=== PATIENT | female | born 1945 | race Hispanic/Latino ===

== ENCOUNTER 2017-02-07 07:49 | Outpatient (CLI) | payer MEDICARE ==
[2017-02-07] MEDS ORDERED: FLUSH HEPARIN IV ONE (08:35)
--- NOTE | 2017-02-10 07:41 | Nuclear Medicine Report ---
NUCLEAR MEDICINE MUGA DATED CARDIAC History: Myocardial infarction, calculated ejection fraction after MRI. Findings: Heart rate measures 64 beats per minute. The planar images demonstrate no gross wall motion abnormality. The cardiac ejection fraction ranges from 64.7 - 67.9 %.
== END 2017-02-07 07:50 | disposition home or self-care (01) ==
LOC: NM 07:49
PROVIDERS: ATTEND Internal Medicine Cardiovascular Disease
DX: I25.2 Old myocardial infarction (principal); I42.9 Cardiomyopathy, unspecified
CPT/HCPCS: 78472; A9560; J1642

== ENCOUNTER 2017-11-14 15:53 | Emergency (ER) | payer MEDICARE ==
[2017-11-14 16:48] LABS: Hematocrit 41.7 % (30.3-42.9); Hemoglobin 13.4 gm/dl (10.1-14.3); Mean Corpuscular HGB Conc 32 % (30-34); Mean Corpuscular Hemoglobin 27 pg (28-32); Mean Corpuscular Volume 83 fl (79-97); Platelet Count 543 K/mm3 (140-440); Red Blood Count 5.02 M/mm3 (3.65-5.03); Red Cell Distribution Width 14.8 % (13.2-15.2)
[2017-11-14 16:54] LABS: White Blood Count 23.9 K/mm3 (4.5-11.0)
[2017-11-14 17:12] LABS: Calcium 9.2 mg/dL (8.4-10.2); Chloride 101.5 mmol/L (98-107); Potassium 3.9 mmol/L (3.6-5.0)
[2017-11-14 17:28] LABS: Basophils % (Manual) 0 % (0.0-1.8); Blastocytes % (Manual) 0 %; Eosinophils % (Manual) 0 % (0.0-4.3)
[2017-11-14 17:29] LABS: Diff Status Complete; Giant Platelets Rare; Platelet Estimate Consistent w Auto; RBC Morphology Normal
--- NOTE | 2017-11-14 18:25 | XRay Report ---
FINAL REPORT PROCEDURE: XR CHEST ROUTINE 2V TECHNIQUE: PA and lateral chest radiographs were obtained. CPT 20353 HISTORY: Shortness of breath. COMPARISON: No prior studies are available for comparison. FINDINGS: Heart: Normal. Mediastinum/Vessels: Aortic tortuosity. Lungs/Pleural space: Normal. Mild symmetric biapical pleural thickening. Bony thorax: Small multilevel osteophytes. Other: Cholecystectomy clips. IMPRESSION: No radiographic evidence of acute cardiopulmonary disease.
[2017-11-14 18:37] LABS: INR 0.89 (0.87-1.13)
[2017-11-14 18:38] LABS: Partial Thromboplastin Time 28.5 Sec. (24.2-36.6)
[2017-11-14 18:51] LABS: Alanine Aminotransferase 22 units/L (7-56); Albumin 4.1 g/dL (3.9-5); Albumin/Globulin Ratio 1.4 %; Alkaline Phosphatase 130 units/L (35-129); Bilirubin,Direct < 0.2 mg/dL (0-0.2); Bilirubin,Indirect 0.1 mg/dL; Total Protein 7.1 g/dL (6.3-8.2)
--- NOTE | 2017-11-14 19:27 | Emergency Department Report ---
ED Shortness of Breath HPI - General Chief Complaint: Dyspnea/Respdistress Stated Complaint: PNEUMONIA Time Seen by Provider: 11/14/17 19:04 Source: patient Mode of arrival: Ambulatory Limitations: No Limitations - History of Present Illness Initial Comments: 72 yo female who comes in today due to shortness of breath. She states that she was treated for pneumonia two weeks ago, and was informed to come to the ED due to an elevated wbc count. The patient states that she has nearly completed the entire course of biaxin, which was prescribed for her pneumonia. Upon further inquiry, the patient is on steroids, and is completing the course of them on today as well. Admits to diarrhea also times the last two days, which is lessening in intensity per the patient. Shortness of breath worse with ambulation, however the patient states that it also lessened in intensity on today in the ED. Afebrile, vitals wnl. Chest radiograph negative for any pathology. MD Complaint: shortness of breath -: week(s) (1) Severity: mild Consistency: now resolved Improves With: rest Worsens With: exertion, movement Known History Of: other (pneumonia-treated for and resolved on chest radiograph today) Context: other (recently treated pneumonia ) Associated Symptoms: cough Treatments Prior to Arrival: other (antibiotics/steroids ) - Related Data Home Oxygen Therapy: No Home Medications Medication Instructions Recorded Confirmed Last Taken Lansoprazole [Prevacid] 30 mg PO DAILY 11/22/15 11/22/15 11/22/15 Lisinopril [Zestril] 20 mg PO QDAY 11/22/15 11/22/15 11/22/15 Multivitamin with Folic Acid [One 1 tab PO DAILY 11/22/15 11/22/15 11/22/15 Daily Multivitamin Tablet] Naproxen Sodium [Aleve TAB] 220 mg PO Q8H PRN 11/22/15 11/22/15 11/22/15 Pravastatin [Pravachol] 40 mg PO DAILY 11/22/15 11/22/15 11/22/15 amLODIPine [Norvasc] 5 mg PO DAILY 11/22/15 11/22/15 11/22/15 Previous Rx's Medication Instructions Recorded Last Taken Type ALBUTEROL Inhaler [ProAir HFA 2 puff IH QID PRN #1 inhalation 11/14/17 Unknown Rx Inhaler] Allergies Allergy/AdvReac Type Severity Reaction Status Date / Time No Known Allergies Allergy Verified 11/23/15 01:08 ED Review of Systems ROS: Stated complaint: PNEUMONIA Other details as noted in HPI Constitutional: denies: chills, fever Eyes: denies: eye pain, eye discharge, vision change ENT: denies: ear pain, throat pain Respiratory: see HPI, cough Cardiovascular: denies: chest pain, palpitations Endocrine: no symptoms reported Gastrointestinal: denies: abdominal pain, nausea, diarrhea Genitourinary: denies: urgency, dysuria, discharge Musculoskeletal: denies: back pain, joint swelling, arthralgia Skin: denies: rash, lesions Neurological: denies: headache, weakness, paresthesias Psychiatric: denies: anxiety, depression Hematological/Lymphatic: denies: easy bleeding, easy bruising ED Past Medical Hx - Past Medical History Previous Medical History?: Yes Hx Hypertension: Yes Hx GERD: Yes Additional medical history: high cholesterol. chronic shoulder pain - Surgical History Hx Cholecystectomy: Yes Additional Surgical History: - Social History Smoking Status: Never Smoker Substance Use Type: None - Medications Home Medications: Home Medications Medication Instructions Recorded Confirmed Last Taken Type Lansoprazole [Prevacid] 30 mg PO DAILY 11/22/15 11/22/15 11/22/15 History Lisinopril [Zestril] 20 mg PO QDAY 11/22/15 11/22/15 11/22/15 History Multivitamin with Folic Acid [One 1 tab PO DAILY 11/22/15 11/22/15 11/22/15 History Daily Multivitamin Tablet] Naproxen Sodium [Aleve TAB] 220 mg PO Q8H PRN 11/22/15 11/22/15 11/22/15 History Pravastatin [Pravachol] 40 mg PO DAILY 11/22/15 11/22/15 11/22/15 History amLODIPine [Norvasc] 5 mg PO DAILY 11/22/15 11/22/15 11/22/15 History ALBUTEROL Inhaler [ProAir HFA 2 puff IH QID PRN #1 inhalation 11/14/17 Unknown Rx Inhaler] ED Physical Exam - General Limitations: No Limitations General appearance: alert, in no apparent distress - Head Head exam: Present: atraumatic, normocephalic - Eye Eye exam: Present: normal appearance - ENT ENT exam: Present: mucous membranes moist - Neck Neck exam: Present: normal inspection - Respiratory Respiratory exam: Present: normal lung sounds bilaterally. Absent: respiratory distress - Cardiovascular Cardiovascular Exam: Present: regular rate, normal rhythm. Absent: systolic murmur, diastolic murmur, rubs, gallop - Extremities Exam Extremities exam: Present: normal inspection - Back Exam Back exam: Present: normal inspection - Neurological Exam Neurological exam: Present: alert, oriented X3 - Psychiatric Psychiatric exam: Present: normal affect, normal mood - Skin Skin exam: Present: warm, dry, intact, normal color. Absent: rash ED Course Vital Signs 11/14/17 16:07 Temperature 98 F Pulse Rate 74 Respiratory 22 Rate Blood Pressure 150/80 O2 Sat by Pulse 99 Oximetry - Reevaluation(s) Reevaluation #1: 11/14/17 19:30 Patient states that she feels much better on evaluation just now. Chest radiograph negative for any pathology. She is completing her course of antibiotics and steroids on today. Admits to diarrhea, but it is lessening in intensity. Pneumonia-resolved. Home with an albuterol inhaler. She was informed that she would continue to not feel well for a little while even after the pneumonia is resolved on chest radiograph. Elevated wbc's due to steroid effect. ED Medical Decision Making - Lab Data Result diagrams: 11/14/17 16:14 11/14/17 16:14 - EKG Data -: EKG Interpreted by Me EKG shows normal: sinus rhythm Rate: normal - EKG Data When compared to previous EKG there are: previous EKG unavailable Interpretation: normal EKG - Radiology Data Radiology results: report reviewed No acute pathology. - Medical Decision Making Community acquired pneumonia-resolved Shortness of breath-related to above Elevated wbc count-related to steroids - Differential Diagnosis s/p community acquired pneumonia, shortness of breath, elevated wbc count Critical care attestation.: If time is entered above; I have spent that time in minutes in the direct care of this critically ill patient, excluding procedure time. ED Disposition Clinical Impression: Shortness of breath, Community acquired pneumonia, Leukocytosis Disposition: - TO HOME OR SELFCARE Is pt being admited?: No Does the pt Need Aspirin: No Condition: Stable Instructions: Bacterial Pneumonia (ED), Dyspnea (ED), Leukocytosis (ED), Fatigue (ED) Additional Instructions: Please continue and complete the course of your medications. Take medicine as prescribed as needed for shortness of breath. Your wbc count was elevated due to you being on steroids. Please follow up with your provider on discharge. Return to the ED for worsening shortness of breath, fever, chills, or bloody diarrhea. Prescriptions: ALBUTEROL Inhaler [ProAir HFA Inhaler] 2 puff IH QID PRN #1 inhalation PRN Reason: Shortness Of Breath Referrals: PRIMARY CARE, [Primary Care Provider] - 3-5 Days Time of Disposition: 19:38
[2017-11-14 19:46] VITALS: BP 152/81
== END 2017-11-14 20:09 | disposition home or self-care (01) ==
LOC: ED 15:53
DX: J18.9 Pneumonia, unspecified organism (principal); R06.02 Shortness of breath; D72.829 Elevated white blood cell count, unspecified; I10 Essential (primary) hypertension; K21.9 Gastro-esophageal reflux disease without esophagitis; E78.00 Pure hypercholesterolemia, unspecified; Z90.49 Acquired absence of other specified parts of digestive tract
CPT/HCPCS: 36415; 71020; 80048; 80074; 82140; 85007; 85025; 85610; 85730; 87040; 93005; 93010

== ENCOUNTER 2019-02-23 16:45 | Emergency (ER) | payer MEDICARE ==
--- NOTE | 2019-02-23 17:01 | Emergency Department Report ---
Blank Doc - Documentation Documentation: 73 y o female presents to ed cc of headache, dizziness and left sides numbness x 1 week dizziness has gotten worse reports nausea strted recently presents with daugther Alert and oriented x [address] scan ACC evaluate
[2019-02-23 17:35] LABS: Basophils # (Auto) 0.1 K/mm3 (0.0-0.1); Basophils % (Auto) 0.8 % (0.0-1.8); Eosinophils # (Auto) 0.4 K/mm3 (0.0-0.4); Eosinophils % (Auto) 3.8 % (0.0-4.3); Hematocrit 37.5 % (30.3-42.9); Hemoglobin 12.7 gm/dl (10.1-14.3); Lymphocytes # (Auto) 4.1 K/mm3 (1.2-5.4); Lymphocytes % (Auto) 35.7 % (13.4-35.0); Mean Corpuscular HGB Conc 34 % (30-34); Mean Corpuscular Volume 84 fl (79-97); Monocytes # (Auto) 0.8 K/mm3 (0.0-0.8); Monocytes % (Auto) 6.7 % (0.0-7.3); Platelet Count 386 K/mm3 (140-440); Red Blood Count 4.46 M/mm3 (3.65-5.03); Red Cell Distribution Width 14.3 % (13.2-15.2)
[2019-02-23 17:45] LABS: INR 0.9 (0.87-1.13)
--- NOTE | 2019-02-23 17:45 | Cat Scan Report ---
PROCEDURE: CT HEAD/BRAIN WO CON TECHNIQUE: Computerized tomography of the head was performed without contrast material. HISTORY: Lightheadedness/Dizziness COMPARISONS: None . FINDINGS: Brain: There is no evidence of intracranial hemorrhage. No parenchymal hemorrhage is seen. There is a mass visualized inferior aspect right frontal lobe medially. This shows mildly increased density an d small calcifications. This measures 3.2 x 3.1 cm. This is causing mild localized mass effect. This is mildly displacing the anterior aspect of the falx to the left. There is some decreased density seen in the periventricular white matter without mass effect. This i s fairly symmetric and does not exhibit any mass effect consistent with gliosis probably on the basis of microvascular disease or white matter changes of aging. Ventricles: The sulcal pattern and fissures are minimally prominent consistent with mild atrophy.. Bone Windows: No evidence of fracture. Paranasal sinuses: Visualized portions are clear. Mastoid air cells: Clear. IMPRESSION: There is evidence of minimal atrophy and gliosis. Soft tissue mass visualized inferior medial aspect right frontal lobe as described with mild localize d mass effect. Partially calcified meningioma is suspected. Large aneurysm in the region of the circl e of [place] is felt to be less likely. MRI of the brain is recommended for further evaluation. This document is electronically signed by Rosendo Olivares MD., February 23 2019 05:43:22 PM ET
[2019-02-23 17:46] LABS: Partial Thromboplastin Time 27.6 Sec. (24.2-36.6)
[2019-02-23 17:54] LABS: Albumin 4.1 g/dL (3.9-5); Calcium 9.3 mg/dL (8.4-10.2)
--- NOTE | 2019-02-23 18:12 | Emergency Department Report ---
HPI - General Chief Complaint: Dizziness Time Seen by Provider: 02/23/19 16:56 - HPI HPI: 73-year-old female presents to the emergency department with the complaints of a headache to the frontal region, dizziness/disequilibrium as if she is going to fall over, numbness to the left side of the face and left sided extremities. This has been going on intermittently for the past 2 weeks but worsened over the past couple of days and today the patient has also started to develop some nausea without vomiting. She has a past medical history of GERD, hypertension, high cholesterol. She has not taken anything for her symptoms prior to arrival. Her primary care physician is Dr. Yissel Magana. ED Past Medical Hx - Past Medical History Hx Hypertension: Yes Hx GERD: Yes Additional medical history: high cholesterol. chronic shoulder pain - Surgical History Hx Cholecystectomy: Yes Additional Surgical History: - Social History Smoking Status: Never Smoker Substance Use Type: None - Medications Home Medications: Home Medications Medication Instructions Recorded Confirmed Last Taken Type Lansoprazole [Prevacid] 30 mg PO DAILY 11/22/15 11/22/15 11/22/15 History Lisinopril [Zestril] 20 mg PO QDAY 11/22/15 11/22/15 11/22/15 History Multivitamin with Folic Acid [One 1 tab PO DAILY 11/22/15 11/22/15 11/22/15 History Daily Multivitamin Tablet] Naproxen Sodium [Aleve TAB] 220 mg PO Q8H PRN 11/22/15 11/22/15 11/22/15 History Pravastatin [Pravachol] 40 mg PO DAILY 11/22/15 11/22/15 11/22/15 History amLODIPine [Norvasc] 5 mg PO DAILY 11/22/15 11/22/15 11/22/15 History ALBUTEROL Inhaler (OR & NICU) 2 puff IH QID PRN #1 inhalation 11/14/17 Unknown Rx [ProAir HFA Inhaler] ED Review of Systems ROS: Stated complaint: (L) SIDE FACE NUMBNESS/HEADACHE Other details as noted in HPI Comment: All other systems reviewed and negative Constitutional: denies: chills, fever Eyes: denies: eye pain, vision change ENT: denies: ear pain, throat pain Respiratory: denies: cough, shortness of breath Cardiovascular: denies: chest pain, palpitations Gastrointestinal: denies: abdominal pain, vomiting Genitourinary: denies: dysuria, discharge Musculoskeletal: denies: back pain, arthralgia Skin: denies: rash, lesions Neurological: headache, numbness, other (dizziness) Physical Exam - Physical Exam Vital Signs: Vital Signs 02/23/19 16:57 Temperature 98.4 F Pulse Rate 65 Respiratory 15 Rate Blood Pressure 143/81 [Right] O2 Sat by Pulse 100 Oximetry Physical Exam: GENERAL: The patient is well-developed well-nourished. HEENT: Normocephalic. Atraumatic. Patient has moist mucous membranes. EYES: Extraocular motions are intact. Pupils are equal and reactive to light bilaterally. NECK: Supple. Trachea is midline. CHEST/LUNGS: Clear to auscultation. There is no respiratory distress noted. HEART/CARDIOVASCULAR: Regular. There is no tachycardia. There is no obvious murmur. ABDOMEN: Abdomen is soft, nontender. Patient has normal bowel sounds. There is no abdominal distention. SKIN: Skin is warm and dry. NEURO: The patient is awake, alert, and oriented. The patient is cooperative. No motor deficits. The patient has normal speech. Cranial nerves II through XII grossly intact. Patient has subjective decreased sensation and/or numbness to the left side of face and the left lower extremity. MUSCULOSKELETAL: There is no tenderness or deformity. There is no limitation range of motion. There is no evidence of acute injury. ED Course Vital Signs 02/23/19 16:57 Temperature 98.4 F Pulse Rate 65 Respiratory 15 Rate Blood Pressure 143/81 [Right] O2 Sat by Pulse 100 Oximetry - Consultations Consultation #1: 02/23/19 18:49 I spoke with the neurosurgeon at [facility], Dr Neely, who listened to the case presentation and has accepted the patient for transfer and admission to [facility]. 02/23/19 19:07 ED Medical Decision Making - Lab Data Result diagrams: 02/23/19 17:18 02/23/19 17:18 - Radiology Data Radiology results: report reviewed PROCEDURE: CT HEAD/BRAIN WO CON TECHNIQUE: Computerized tomography of the head was performed without contrast material. HISTORY: Lightheadedness/Dizziness COMPARISONS: None . FINDINGS: Brain: There is no evidence of intracranial hemorrhage. No parenchymal hem orrhage is seen. There is a mass visualized inferior aspect right frontal lobe medially. This shows mildly increased density and small calcifications. This measures 3.2 x 3.1 cm. This is causing mild localized mass effect. This is mildly displacing the anterior aspect of the falx to the left. There is some decreased density seen in the periventricular white matter without mass effect. This is fairly symmetric and does not exhibit any mass effect consistent with gliosis probably on the basis of microvascular disease or white matter changes of aging. Ventricles: The sulcal pattern and fissures are minimally prominent consistent with mild atrophy.. Bone Windows: No evidence of fracture. Paranasal sinuses: Visualized portions are clear. Mastoid air cells: Clear. IMPRESSION: There is evidence of minimal atrophy and gliosis. Soft tissue mass visualized inferior medial aspect right frontal lobe as described with mild localized mass effect. Partially calcified meningioma is suspected. Large aneurysm in the region of the [place] of [place] is felt to be less likely. MRI of the brain is recommended for further evaluation. This document is electronically signed by Rosendo Spangler MD., February 23 2019 05:43:22 PM ET Transcribed By: MISA Dictated By: ROSENDO SPANGLER MD Electronically Authenticated By: ROSENDO SPANGLER MD Signed Date/Time: 02/23/19 1405 - Medical Decision Making This patient presents with the complaint of some recent frontal headache, dizziness/lightheadedness and some numbness to the left side of the face. On ex amination and also appears to be some numbness to the left leg. On the NIH stroke scale the patient is a 1. A CT scan of the head was done that shows a soft tissue mass to the medial right frontal portion of the brain with some associated mass effect on the falx towards the left. This very well could be the source of the patient's symptoms. Since the patient does have this new brain mass with some strokelike symptoms and some edema causing mass effect, the patient will need evaluation by neurosurgery, which we do not have at our facility. The patient was accepted for transfer and admission to [facility] by Dr. Neely. All the labs and imaging results, as well as the plan for transfer, were discussed with the patient and her family and they understand and agree to the plan. - Differential Diagnosis malignancy, tension headache, migraine, dysrhythmia Critical Care Time: Yes Critical care time in (mins) excluding proc time.: 35 Critical care attestation.: If time is entered above; I have spent that time in minutes in the direct care of this critically ill patient, excluding procedure time. Critical care time was spent on this patient during her initial evaluation, multiple evaluations, ordering and interpretation of labs and imaging, discussion with the accepting neurosurgeon, and multiple discussions with the patient and her family. Critical Care Time: 35 minutes ED Disposition Clinical Impression: Brain mass, Dizziness, Stroke-like symptom Headache Qualifiers: Headache type: unspecified Headache chronicity pattern: episodic headache Intractability: not intractable Qualified Code(s): R51 - Headache Disposition: DC/TX-70 ANOTHER TYPE HLTHCARE Is pt being admited?: No Condition: Fair Referrals: SAMI LAZOOLYMPIA MD SELENE [Primary Care Provider] - 3-5 Days Time of Disposition: 20:35 - Assessment Assessment Interval: Baseline - Level of Consciousness 1a. Level of Consciousness: alert/keenly responsive - LOC Questions 1b. LOC Questions: answers both correctly - LOC Command 1c. LOC Commands: performs tasks correctly - Best Gaze 2. Best Gaze: normal - Visual 3. Visual: no visual loss - Facial Palsy 4. Facial Palsy: normal symmetrical movement - Motor Arm 5a. Motor Arm Left: no drift 5b. Motor Arm Right: no drift - Motor Leg 6a. Motor Leg Left: no drift 6b. Motor Leg Right: no drift - Limb Ataxia 7. Limb Ataxia: absent - Sensory 8. Sensory: mild/moderate sensory loss - Best Language 9. Best Language: no aphasia - Dysarthria 10. Dysarthria: normal - Extinction and Inattention 11. Extinction/Inattention: no abnormality - Scoring Total Score: 1 Stroke Severity: Minor Stroke
[2019-02-23 18:43] VITALS: BP 138/66
== END 2019-02-23 19:24 | disposition other institution (70) ==
LOC: ED 16:45
DX: R22.0 Localized swelling, mass and lump, head (principal); R51 Headache; R42 Dizziness and giddiness; I10 Essential (primary) hypertension; K21.9 Gastro-esophageal reflux disease without esophagitis; E78.00 Pure hypercholesterolemia, unspecified
CPT/HCPCS: 36415; 70450; 80053; 82962; 85025; 85610; 85730; 99291

== ENCOUNTER 2019-05-07 09:56 | Emergency (ER) | payer MEDICARE ==
[2019-05-07] MEDS ORDERED: DIPRIVAN 10 MG/ML 1,000 MG/100 ML BOTTLE IV ONE (10:08)
[2019-05-07] MEDS ORDERED: DIPRIVAN 10 MG/ML IV ONE (10:09)
[2019-05-07] MEDS ORDERED: KEPPRA 1,000 MG/NS 0.75% 100ML 1,000 MG/100 ML BAG IV ONE (10:10)
[2019-05-07] MEDS ORDERED: QUELICIN IV ONE (10:11)
[2019-05-07] MEDS ORDERED: DECADRON IV ONE (10:17)
[2019-05-07] MEDS ORDERED: OSMITROL 20% IV ONE ×2 (10:17→11:00)
[2019-05-07] MEDS ORDERED: DECADRON ONE (10:20)
[2019-05-07 10:25] LABS: Hematocrit 33.1 % (30.3-42.9); Mean Corpuscular HGB Conc 33 % (30-34); Mean Corpuscular Volume 86 fl (79-97); Platelet Count 527 K/mm3 (140-440); Red Blood Count 3.85 M/mm3 (3.65-5.03)
[2019-05-07] MEDS ORDERED: VASELINE LIP THERAPY TP PRN (10:30)
[2019-05-07] MEDS ORDERED: ARTIFICIAL TEARS OPHTH OINT OU PRN (10:30)
[2019-05-07] MEDS ORDERED: NORMODYNE IV ONE ×2 (10:49)
--- NOTE | 2019-05-07 10:52 | Emergency Department Report ---
ED General Adult HPI - General Chief complaint: Altered Mental Status Stated complaint: UNRESPONSIVE Time Seen by Provider: 05/07/19 10:27 Source: family, EMS Mode of arrival: Stretcher Limitations: Altered Mental Status - History of Present Illness Initial comments: 73-year-old female is status post a craniotomy for a hemangioma on Friday at [facility] and make him. She returned to this area yesterday care for by family. Family removed a fentanyl patch last night because they thought she was becoming sedated from it. This morning they found the patient to essentially be stuporous. EMS was summoned. They gave the patient Narcan without appreciable awakening. She presented to this facility deeply comatose and not posturing. It was decided that she should undergo RSI for elective intubation. The family was counseled. They were in agreement. This was done prior to CT scanning. She was given prophylactic Keppra as well. CT scan was positive for large intracranial hemorrhage. Patient was given Decadron and mannitol. I am cur rently in the process of transfer the patient presumably to her neurosurgical team in [place]. -: hour(s) - Related Data Home Medications Medication Instructions Recorded Confirmed Last Taken Lansoprazole [Prevacid] 30 mg PO DAILY 11/22/15 11/22/15 11/22/15 Lisinopril [Zestril] 20 mg PO QDAY 11/22/15 11/22/15 11/22/15 Multivitamin with Folic Acid [One 1 tab PO DAILY 11/22/15 11/22/15 11/22/15 Daily Multivitamin Tablet] Naproxen Sodium [Aleve TAB] 220 mg PO Q8H PRN 11/22/15 11/22/15 11/22/15 Pravastatin [Pravachol] 40 mg PO DAILY 11/22/15 11/22/15 11/22/15 amLODIPine [Norvasc] 5 mg PO DAILY 11/22/15 11/22/15 11/22/15 Previous Rx's Medication Instructions Recorded Last Taken Type ALBUTEROL Inhaler (OR & NICU) 2 puff IH QID PRN #1 inhalation 11/14/17 Unknown Rx [ProAir HFA Inhaler] Allergies Allergy/AdvReac Type Severity Reaction Status Date / Time adhesive tape Allergy Unknown Verified 05/07/19 10:00 ED Review of Systems ROS: Stated complaint: UNRESPONSIVE Other details as noted in HPI Comment: Unobtainable due to pts medical conditions ED Past Medical Hx - Past Medical History Previous Medical History?: Yes Hx Hypertension: Yes Hx GERD: Yes Additional medical history: high cholesterol. chronic shoulder pain - Surgical History Past Surgical History?: Yes Hx Cholecystectomy: Yes Additional Surgical History: . brain surgery for a 3.5 cm meningioma - Social History Smoking Status: Unknown if ever smoked Substance Use Type: None - Medications Home Medications: Home Medications Medication Instructions Recorded Confirmed Last Taken Type Lansoprazole [Prevacid] 30 mg PO DAILY 11/22/15 11/22/15 11/22/15 History Lisinopril [Zestril] 20 mg PO QDAY 11/22/15 11/22/15 11/22/15 History Multivitamin with Folic Acid [One 1 tab PO DAILY 11/22/15 11/22/15 11/22/15 History Daily Multivitamin Tablet] Naproxen Sodium [Aleve TAB] 220 mg PO Q8H PRN 11/22/15 11/22/15 11/22/15 History Pravastatin [Pravachol] 40 mg PO DAILY 11/22/15 11/22/15 11/22/15 History amLODIPine [Norvasc] 5 mg PO DAILY 11/22/15 11/22/15 11/22/15 History ALBUTEROL Inhaler (OR & NICU) 2 puff IH QID PRN #1 inhalation 11/14/17 Unknown Rx [ProAir HFA Inhaler] ED Physical Exam - General Limitations: Altered Mental Status General appearance: obtunded - Head Head exam: Present: other (craniotomy and bandage) - Eye Eye exam: Present: other (pupils small to mid position and mildly reactive) - ENT ENT exam: Present: normal exam - Neck Neck exam: Present: normal inspection. Absent: meningismus - Respiratory Respiratory exam: Present: decreased breath sounds - Cardiovascular Cardiovascular Exam: Present: regular rate, normal rhythm. Absent: systolic murmur, diastolic murmur, rubs, gallop - GI/Abdominal GI/Abdominal exam: Present: soft. Absent: distended - Extremities Exam Extremities exam: Present: normal inspection - Back Exam Back exam: Present: other (did not visualize) - Neurological Exam Neurological exam: Present: other (GCS is to be 4 with some posturing) - Psychiatric Psychiatric exam: Present: other (not applicable) - Skin Skin exam: Present: warm ED Course Vital Signs 05/07/19 05/07/19 05/07/19 09:58 10:00 10:15 Pulse Rate 64 65 80 Respiratory 18 16 27 H Rate Blood Pressure 200/84 216/95 O2 Sat by Pulse 91 100 Oximetry 05/07/19 05/07/19 05/07/19 10:35 10:45 10:48 Pulse Rate 81 84 80 Respiratory 16 22 Rate Blood Pressure 191/94 201/81 199/76 O2 Sat by Pulse 100 100 Oximetry 05/07/19 05/07/19 05/07/19 10:50 10:55 11:00 Pulse Rate 74 67 69 Respiratory 20 14 19 Rate Blood Pressure 145/79 145/79 103/76 O2 Sat by Pulse 100 100 100 Oximetry 05/07/19 11:05 Pulse Rate 68 Respiratory 14 Rate Blood Pressure 172/78 O2 Sat by Pulse 100 Oximetry - Reevaluation(s) Reevaluation #1: Rapid sequence intubation performed with intubation 7.5 Samoan endotracheal tube at 22 cm at the teeth single attempt with no desaturation. Empirically, I ordered Decadron and mannitol. Confirmation of indications on CT scan 7.5 cm intracranial hemorrhage edema and midline shift of 1.4 cm. Hematoma in the right frontal region contiguous to the craniotomy. I spoke with Dr. Flanagan. The patient should be sent to the emergency department as soon as possible. He stated Dr. Figueroa will be the receiving physician since he is out of town. Air ambulance is an route. 05/07/19 11:03 - Intubation Time Out Performed: No Sedative: other (propofol) Paralytic: Succinylcholine Laryngoscope: Riccardo Size: 4 ET Tube Size: 7.5 Tube Secured Depth (cm): 22 Tube Secured Location: teeth Tube Placement Confirmation: visualized tube passing t Patient Tolerated Procedure: well Intubation Complications: none Additional Comments: B retracted 2 cm based on x-ray position. ED Medical Decision Making - Lab Data Result diagrams: 05/07/19 10:16 05/07/19 10:16 Laboratory Results - last 24 hr 05/07/19 05/07/19 05/07/19 10:07 10:16 10:16 WBC 25.5 H RBC 3.85 Hgb 11.0 Hct 33.1 MCV 86 MCH 29 MCHC 33 RDW 15.0 Plt Count 527 H Lymph # Manager Financial Reporting PT INR APTT Chloride 60.0 L POC Glucose 126 H Magnesium Total Bilirubin AST ALT Alkaline Phosphatase Total Protein Albumin Albumin/Globulin Ratio 05/07/19 05/07/19 10:16 10:31 WBC RBC Hgb Hct MCV MCH MCHC RDW Plt Count Lymph # PT 14.0 INR 1.02 APTT 25.7 Chloride POC Glucose Magnesium 1.60 L Total Bilirubin 0.40 AST 20 ALT 21 Alkaline Phosphatase 95 Total Protein 7.4 Albumin 3.6 L Albumin/Globulin Ratio 0.9 - Radiology Data Endotracheal tube below it will be retracted about 2 cm Critical Care Time: Yes Critical care time in (mins) excluding proc time.: 75 Critical care attestation.: If time is entered above; I have spent that time in minutes in the direct care of this critically ill patient, excluding procedure time. ED Disposition Clinical Impression: Intracranial hemorrhage, Cerebral edema, Status post craniotomy Coma Qualifiers: Coma depth: Ranulfo coma 3-8 Coma timing: unspecified coma timing Qualified Code(s): R40.2430 - Ranulfo coma scale score 3-8, unspecified time Disposition: DC/TX-70 ANOTHER TYPE HLTHCARE Is pt being admited?: No Does the pt Need Aspirin: No Condition: Stable Referrals: PRIMARY CARE, [Referring] - 3-5 Days
--- NOTE | 2019-05-07 10:58 | Cat Scan Report ---
CT HEAD WITHOUT CONTRAST INDICATION: Altered mental status. COMPARISON: 02/23/[address] FINDINGS: Noncontrast head CT demonstrates interval postsurgical changes from right frontal/anterior cranial fossa meningioma resection. Large, approximately 7.4 x 6.8 cm right frontal lobe heterogeneous, acute hyperdense hemorrhage and associated edema now noted with new right to left midline shift of approximately 1.4 cm anteriorly as on axial series 4, images 20-50. Mild pneumocephalus anteriorly is also new as also at the surgical bed inferiorly on axial image 23. Associated effacement/displacement of the frontal horns also seen. Preserved remainder mccarty-white differentiation. Normal posterior fossa with preserved basilar cisterns. Symmetric eye globes. Right frontal craniotomy changes noted, including right frontotemporal scalp swelling and multiple skin jason. Severe, near complete opacification of the right frontal sinus is new. Mild bilateral ethmoid and maxillary sinus mucosal thickening also seen. Grossly clear left frontal sinus and bilateral mastoid air cells. Patient now intubated. Small radiopaque dental material. CONCLUSION: 1. Large right frontal lobe hemorrhage/edema and new left to right midline shift following meningioma resection, as detailed above. Please correlate. 2. Various other findings, including sinus disease and interval intubation. I phoned the above results to Dr. Peña in the ER, 10:50 AM, 05/07/2019. Thank you for the opportunity to participate in this patient's care.
[2019-05-07 10:59] LABS: INR 1.02 (0.87-1.13); Partial Thromboplastin Time 25.7 Sec. (24.2-36.6)
[2019-05-07 11:00] LABS: Alanine Aminotransferase 21 units/L (7-56); Albumin 3.6 g/dL (3.9-5)
[2019-05-07] MEDS ORDERED: DIPRIVAN 10 MG/ML 1,000 MG/100 ML BOTTLE IV SCH (11:00)
--- NOTE | 2019-05-07 11:10 | XRay Report ---
PORTABLE CHEST INDICATION: Post intubation. COMPARISON: 11/14/2017 FINDINGS: Portable, frontal chest radiograph now demonstrates poorer inspiration with mild exaggerated cardiomediastinal silhouette. Slight left perihilar atelectasis/prominent densities. No pleural effusions or CHF. New endotracheal tube tip at or just above the blas and may be retracted by approximately 3-3.5 cm. New esophagogastric tube extends into the stomach and beyond the inferior radiographic margin. Stable cholecystectomy clips. EKG leads. Intact bones. CONCLUSION: Various findings, as above. Please correlate. I phoned the above results to Dr. Peña in the ER, 11 AM, 05/07/2019. Thank you for the opportunity to participate in this patient's care.
[2019-05-07 11:15] LABS: Calcium 8.9 mg/dL (8.4-10.2)
[2019-05-07 11:19] LABS: Bilirubin,Direct < 0.2 mg/dL (0-0.2)
[2019-05-07 11:24] LABS: Bilirubin,Urine NEG (Negative); Blood,Urine SM (Negative); Color,Urine Straw (Yellow); Urobilinogen,Urine < 2.0 mg/dL (<2.0)
[2019-05-07 11:27] VITALS: BP 184/64
[2019-05-07 12:06] LABS: Basophils % (Manual) 0 % (0.0-1.8); Eosinophils % (Manual) 0 % (0.0-4.3); Myelocytes # (Manual) 0.3 K/mm3; Total Cells Counted 100
[2019-05-07 12:07] LABS: Platelet Estimate Consistent w Auto; RBC Morphology Normal
== END 2019-05-07 11:34 | disposition other institution (70) ==
LOC: ED 09:56
DX: I62.9 Nontraumatic intracranial hemorrhage, unspecified (principal); G93.6 Cerebral edema; R40.20 Unspecified coma; I10 Essential (primary) hypertension; K21.9 Gastro-esophageal reflux disease without esophagitis; E78.00 Pure hypercholesterolemia, unspecified; Z90.49 Acquired absence of other specified parts of digestive tract; Z79.899 Other long term (current) drug therapy; Z91.048 Other nonmedicinal substance allergy status
CPT/HCPCS: 31500; 36415; 70450; 71045; 80048; 80076; 81001; 82962; 83735; 85007; 85025; 85610; 85730; 93005; 93010; 96365; 96366; 96375; 99291; 99292; J1100; J1953; J2150; J2704

== ENCOUNTER 2019-06-09 10:43 | Inpatient (IN) | payer MEDICARE ==
[2019-06-09] MEDS ORDERED: MILK OF MAGNESIA PO PRN (14:47)
[2019-06-09] MEDS ORDERED: DULCOLAX PR PRN (14:47)
--- NOTE | 2019-06-09 15:32 | History and Physical Report ---
History of Present Illness Date: 06/09/19 Date of admission: 06/09/2019 Chief Complaint: ICH post meningioma resection History of present illness: 73 yo female who underwent excision of meningioma and was discharged home in good condition with the later evolution of weakness and decline. She was evaluated and found to have an ICH and taken for emergent craniotomy. Flap remains out, helmet should be on when OOB. She underwent therapy at OSH and once she was medically stable she was transferred for further rehab. Apparently the patient did have some issues with falling and required restraints of some sort at the outside hospital. We were not made aware of this prior to accepting. She also had a fall the day before transfer. CT scan of the head showed no new injury. We took the extra precaution of moving her to a room closest to the nurse's station and have placed a bed alarm on. Have discussed with nursing that she needs to be monitored closely. I have also discussed with the patient that she needs to avoid getting out of the bed without assistance. Initially upon evaluation by nursing she was already attempting to slide out of the bed. Discussed with her and nursing that if we need to we can utilize a Mini vest but would prefer to avoid that if at all possible. We will continue to monitor her progress and redirect her as much as possible but if safety warrants we will utilize a [place] vest. Duncan dose on discharge paperwork was also out of the ordinary. Contacted the referring hospital and was masha enough to be able to reach the neurosurgeon who stated there is an error in the transfer paperwork and the dose was corrected. After the patient was medically stabilized she was transferred for further rehabilitation. All available medical records have been reviewed. Plan of care was discussed with patient and family. Past History Past Medical History: anemia, cancer, GERD, hypertension, hyperlipidemia, seizures, other (CKD, dizziness) Past Surgical History: cholecystectomy, , Other (meningioma resection, craniotomy, acromial spur) Social history: lives with family. denies: smoking, alcohol abuse, prescription drug abuse Family history: CAD, diabetes, hypertension Medications and Allergies Allergies Allergy/AdvReac Type Severity Reaction Status Date / Time adhesive tape Allergy Unknown Verified 05/07/19 10:00 Home Medications Medication Instructions Recorded Confirmed Last Taken Type Lansoprazole [Prevacid] 30 mg PO DAILY 11/22/15 11/22/15 11/22/15 History Lisinopril [Zestril] 20 mg PO QDAY 11/22/15 11/22/15 11/22/15 History Multivitamin with Folic Acid [One 1 tab PO DAILY 11/22/15 11/22/15 11/22/15 History Daily Multivitamin Tablet] Naproxen Sodium [Aleve TAB] 220 mg PO Q8H PRN 11/22/15 11/22/15 11/22/15 History Pravastatin [Pravachol] 40 mg PO DAILY 11/22/15 11/22/15 11/22/15 History amLODIPine [Norvasc] 5 mg PO DAILY 11/22/15 11/22/15 11/22/15 History ALBUTEROL Inhaler (OR & NICU) 2 puff IH QID PRN #1 inhalation 11/14/17 Unknown Rx [ProAir HFA Inhaler] Active Meds: Active Medications Acetaminophen (Tylenol) 650 mg PO Q4H PRN PRN Reason: Pain MILD(1-3)/Fever >100.5/MURRY Bisacodyl (Dulcolax) 10 mg AL QDAY PRN PRN Reason: Constipation unrelieved by MOM Chlorhexidine Gluconate (Peridex) 15 ml MM BID ALEX Heparin Sodium (Porcine) (Heparin) 5,000 unit SUB-Q Q12HR ALEX Levetiracetam (Keppra) 1,000 mg PO BID ALEX Magnesium Hydroxide (Milk Of Magnesia) 30 ml PO Q4H PRN PRN Reason: Constipation Metoprolol Tartrate (Lopressor) 12.5 mg PO BID ALEX Pantoprazole Sodium (Protonix) 40 mg PO QDAY ALEX Pravastatin Sodium (Pravachol) 40 mg PO QHS ALEX Quetiapine Fumarate (Seroquel) 12.5 mg PO HS ALEX Review of Systems All systems: negative (ROS negative for 12 systems except as noted below with pertinent positives and negatives.) Constitutional: fatigue Ears, nose, mouth and throat: no decreased hearing, no headache Cardiovascular: no chest pain, no palpitations, no rapid/irregular heart beat, no edema Respiratory: no cough, no shortness of breath Gastrointestinal: no abdominal pain, no nausea, no vomiting, no diarrhea, no constipation Musculoskeletal: no neck pain, no arm numbness/tingling, no leg numbness/tingling Integumentary: no rash, no pruritis, no redness, no sores Neurological: head injury (flap out), confusion, gait dysfunction Psychiatric: confusion Endocrine: no high blood sugars, no low blood sugars Exam - Exam Narrative exam: MUSCULOSKELETAL SPECIALTY EXAM CONSTITUTIONAL: Well developed, well nourished, appropriately groomed LYMPHATIC: No appreciable abnormalities palpable in neck HEENT: Right frontal crani flap out, scalp sunken, suture line healed. Visual painting full to confrontation. EOMI. Oropharynx clear. Hearing intact to soft voice RESPIRATORY: Clear to auscultation bilaterally, no increased work of breathing CARDIOVASCULAR: Regular Rate/ Rhythm, no swelling, edema or tenderness in BUE or BLE. Pulses palpable in all extremities. All extremities warm. GI: + bowel sounds, soft, NTTP, nondistended. INTEGUMENTARY: Except for scalp as noted above, Normal, no lesion, rash, masses or bruising noted in extremities. MUSCULOSKELETAL: BUE and BLE normal without defect, crepitus, subluxation, effusion, arthritic ch anges or TTP. BUE 4/5, good ROM, with normal tone. BLE 4/5 good ROM, with normal tone NEURO: CN 2-12 grossly intact. Sensation intact in all extremities. Reflexes 2+ bilaterally at biceps, brachioradialis and patella. No clonus at ankles. Coordination intact in BUE. No tremor noted in 4 extremities. POSTURE and GAIT: Sitting posture good. Balance appears reasonable. Gait deferred until seen with therapy. PSYCH: Alert, orientated x3, affect appears normal. Insight appears impaired. Intermittent confusion and impulsive. Assessment and Plan Assessment and plan: Patient was assessed and evaluated for Acute Inpatient Rehab Unit. Due to the patients above-mentioned medical complexity, along with decreased functional mobility and self care, this patient continues to require and be appropriate for a comprehensive, multidisciplinary [id number] rehabilitation program. These needs cannot be met in an outpatient or other less intensive setting. The patient would continue to benefit from skilled therapy intervention for at least 3 hours per day, five days a week, with techniques specific to the needs of the patient to improve function, activities of daily living, and reintegration into the community. The patient continues to require: -- OT to improve ROM, self-care, and learn use of adaptive equipment -- PT to improve strength and balance, functional transfers, and ambulation with energy conservation techniques to improve functional mobility -- ASSISTANT GOLF PROFESSIONAL to address cognitive deficits and swallowing ability -- 24 hour RN to ensure and prevent skin breakdown, promote progressive independence while ensuring safety, ensure education regarding medications, and incorporation of the rehabilitation at the bedside -- 24 hour Spike Machine Heater to coordinate this interdisciplinary program, and to manage/prevent complications as a result of the patients medical comorbidities. -Plan of care by day 4 -Weekly team conferences With such a program, there is a reasonable certainty that the goals individualized for this patient can be achieved within the specified length of stay. Intracranial hemorrhage status post craniotomy: Fall precautions, helmet on when out of bed, bed alarm, patient has been moved to room closest to the nurse's station. We'll continue to assess patient as she is a high risk for future falls. May need to utilize other restraints until she is able to control her impulses. Monitor scalp for any signs of intracranial swelling (scalp is sunken currently) Hypertension: Continue medication adjustments as needed for normotension Hyperlipidemia: continue statin GERD: Continue Protonix, monitor Constipation: continue bowel meds and monitor for normal bowel regimen Seizure: Continue seizure precaution, monitor frequently for changes in neuro status, continue Keppra Z73.6 ADL dysfunction: OT will work on improving ability to perform ADLs (including assistive devices) to increase independence and decrease caregiver burden and improve functional transfers and mobility training. R26.2 Difficulty walking: PT will work on gait training and proper use of assistive devices and advance as appropriate to use of stairs and outside ambulation on uneven surfaces. R26.81 Unsteadiness on feet: PT will work on improving static and dynamic sitting and standing balance as well as proper use of assistive devices to d ecrease risk of falls. R26.89 Abnormality of gait: PT will work to improve safety and efficiency of gait through neuromotor training and gait training along with instruction on proper use of assistive devices. M62.81 Muscle weakness: PT & OT will work on strengthening exercises to improve functional strength including mixture of closed and open kinetic chain exercises. R53.81 Debility: PT & OT will work on improving overall functional status to improve participation with ADLs, mobility and social involvement. R53.83 Fatigue: PT & OT will work on improving endurance through aerobic exercises and therapeutic activity while monitoring patients tolerance for activity and vital signs as needed. DVT ppx: Heparin twice a day Pain: Continue physical modalities in therapy and pain medications as needed to achieve functional pain control. Sleep: Monitor and address as needed. Bowel: Monitor and address as needed. Appetite: Monitor and address as needed. Discharge planning: Pending therapy progress and care plan meeting. Will continue discussion with therapy team, SW, patient and family. Restrictions/ Precautions: Falls, cranial flap, seizure WB status: FWB Functional Hx: ADLs: Independent Cognition: Independent Mobility: No AD Barriers to Discharge: Decreased mobility and ability to perform self care, balance deficits, weakness Estimated Length of Stay: 1421 days Discharge Destination: Home with family POST ADMISSION PHYSICIAN EVALUATION I have examined the patient and find that functional status, medical condition and appropriateness for IRF admission are essentially unchanged from those described in the preadmission screening. Will monitor for worsening neuro status, seizure activity, falls, impulse control, DVT/PE, bowel and bladder complications and complications due to hypertension, GERD and electrolyte abnormalities. Will attempt to avoid occurrence of these issues or treat them if they present themselves.
[2019-06-09] MEDS: KEPPRA PO SCH (22:02)
[2019-06-09] MEDS: PRAVACHOL PO SCH (22:03)
[2019-06-09] MEDS: HEPARIN SUB-Q SCH (22:04)
[2019-06-09] MEDS: PERIDEX MM SCH (22:04)
[2019-06-09] MEDS: LOPRESSOR PO SCH (22:06)
[2019-06-10 04:31] LABS: Basophils # (Auto) 0.1 K/mm3 (0.0-0.1); Basophils % (Auto) 0.7 % (0.0-1.8); Eosinophils # (Auto) 0.2 K/mm3 (0.0-0.4); Eosinophils % (Auto) 3.3 % (0.0-4.3); Hematocrit 33.9 % (30.3-42.9); Hemoglobin 11.4 gm/dl (10.1-14.3); Lymphocytes # (Auto) 1.9 K/mm3 (1.2-5.4); Lymphocytes % (Auto) 25.3 % (13.4-35.0); Mean Corpuscular HGB Conc 34 % (30-34); Mean Corpuscular Volume 93 fl (79-97); Monocytes # (Auto) 0.6 K/mm3 (0.0-0.8); Monocytes % (Auto) 7.8 % (0.0-7.3); Platelet Count 252 K/mm3 (140-440); Red Blood Count 3.65 M/mm3 (3.65-5.03); Red Cell Distribution Width 19.5 % (13.2-15.2)
[2019-06-10 04:48] LABS: Alanine Aminotransferase 58 units/L (7-56); Albumin 3.3 g/dL (3.9-5); BUN/Creatinine Ratio 16; Blood Urea Nitrogen 13 mg/dL (7-17); Calcium 8.9 mg/dL (8.4-10.2); Hemolysis Index 11
[2019-06-10] MEDS: HEPARIN SUB-Q SCH ×3 (08:29→21:42)
[2019-06-10] MEDS: KEPPRA PO SCH ×2 (08:29→21:41)
[2019-06-10] MEDS: PROTONIX PO SCH (08:30)
[2019-06-10] MEDS: PERIDEX MM SCH ×2 (08:33→21:50)
[2019-06-10] MEDS: LOPRESSOR PO SCH (09:07)
--- NOTE | 2019-06-10 10:34 | Progress Note ---
Subjective Date of service: 06/10/19 Principal diagnosis: ICH s/p meningioma resection Interval history: 73 yo female who underwent excision of meningioma and was discharged home in good condition with the later evolution of weakness and decline. She was evaluated and found to have an ICH and taken for emergent craniotomy. Flap remains out, helmet should be on when OOB. She underwent therapy at OSH and once she was medically stable she was transferred for further rehab. Apparently the patient did have some issues with falling and required restraints of some sort at the outside hospital. We were not made aware of this prior to accepting. She also had a fall the day before transfer. CT scan of the head showed no new injury. We took the extra precaution of moving her to a room tyson sest to the nurse's station and have placed a bed alarm on. Have discussed with nursing that she needs to be monitored closely. I have also discussed with the patient that she needs to avoid getting out of the bed without assistance. Initially upon evaluation by nursing she was already attempting to slide out of the bed. Discussed with her and nursing that if we need to we can utilize a [place] vest but would prefer to avoid that if at all possible. We will continue to monitor her progress and redirect her as much as possible but if safety warrants we will utilize a [place] vest. Keppra dose on discharge paperwork was also out of the ordinary. Contacted the referring hospital and was masha enough to be able to reach the neurosurgeon who stated there is an error in the transfer paperwork and the dose was corrected. Patient is participating in therapy and making reasonable progress. Taking rest breaks as needed. No acute events overnight. BP was low, metoprolol held. Awaiting keppra level. Patient has nasal drainage, typically takes flonase at home. Denies headache, not worse with leaning forward and not present on my exam. Less likely a CSF leak but will continue to monitor. +BM. Denies pain, palpitations, dyspnea, cough, N/V, weakness, or joint pain. Continues to have confusion and impulsiveness. Continue restraints for safety. All records, vitals, labs and medications were reviewed. No other issues per patient, nursing or therapy. Objective - Exam Narrative Exam: MUSCULOSKELETAL SPECIALTY EXAM CONSTITUTIONAL: Well developed, well nourished, appropriately groomed HEENT: Right frontal crani flap out, scalp sunken, suture line healed. EOMI. No sign of nasal drainage at time of my exam. Hearing intact to soft voice RESPIRATORY: Clear to auscultation bilaterally, no increased work of breathing CARDIOVASCULAR: Regular Rate/ Rhythm, no swelling, edema or tenderness in BUE or BLE. All extremities warm. GI: + bowel sounds, soft, NTTP, nondistended. INTEGUMENTARY: Except for scalp as noted above, Normal, no lesion, rash, masses or bruising noted in extremities. MUSCULOSKELETAL: BUE and BLE normal without defect, crepitus, subluxation, effusion, arthritic changes or TTP. BUE 4/5, good ROM, with normal tone. BLE 4/5 good ROM, with normal tone NEURO: CN 2-12 grossly intact. Sensation intact in all extremities. No tremor noted in 4 extremities. POSTURE and GAIT: Sitting posture good. Balance appears reasonable. Gait fair with RW and assistance, no LOB noted during my observation. PSYCH: Alert, orientated x3, affect appears normal. Insight appears impaired. Intermittent confusion and impulsive. - Constitutional Vitals: Vital Signs - 12hr 06/10/19 06/10/19 06/10/19 00:08 00:09 04:42 Temperature 36.5 C 36.4 C L Pulse Rate 74 75 76 Respiratory 18 20 Rate Blood Pressure 108/64 99/51 O2 Sat by Pulse 96 96 100 Oximetry 06/10/19 06/10/19 06/10/19 07:36 08:21 09:07 Temperature 36.9 C Pulse Rate 86 85 Respiratory 19 Rate Blood Pressure 94/55 94/55 O2 Sat by Pulse 96 98 Oximetry - Allied health notes Allied health notes reviewed: nursing, PT, OT FIMS assessment as documented by PT/OT/ST: Grooming Patient cleans teeth/dentures: Yes Patient [place]/brushes hair: Yes Patient washes, rinses and Yes dries face: Patient applies make-up: No Patient performs (no make-up/ 4/4 (100%) shaving): Grooming FIM Score 5. Supervision ([place] applies toothpaste or opens containers.) Toileting Toileting Device Commode over Toilet,Grab Bar Patient able to: Adjust clothes before,Clean self,Adjust clothes after Patient able to perform: 3/3 (100%) Toileting FIM Score 4. Minimal Assistance (Patient = 75% or more. Needs touching.) Social interaction/Memory/Problem solving Social Interaction FIM Score 5. Supervision (Needs supv. <10%. Needs encouragement to participate.) Memory FIM Score 5. Supervision (Needs cueing <10%, stressful/ unfamiliar situations.) Problem Solving FIM Score 4. Minimal Assistance (Solves routine problems 75-90%.) Transfers Mode of Locomotion: Wheelchair Bed/Chair/Wheelchair Transfers 4. Minimal Assistance (Patient = 75% or more. FIM Score Needs touching.) Toilet Transfers FIM Score 4. Minimal Assistance (Patient = 75% or more. Needs touching.) Patient transferred to: Shower Shower Transfers FIM Score 4. Minimal Assistance (Patient = 75% or more. Needs touching.) Eating Eating FIM Score 6. Modified [place] (Special consistency or uses device.) Dressing-Upper body Patient retrieves clothing No items: Patient applies/removes UE n/a prosthesis or orthosis: Upper Body Dressing FIM Score 4. Minimal Assistance (Patient = 75% or more. Needs touching.) Dressing-lower body Patient retrieves clothing No items: Patient applies/removes LE n/a prosthesis or orthosis: Lower Body Dressing FIM Score 4. Minimal Assistance (Patient = 75% or more. Needs touching.) - Labs CBC & Chem 7: 06/10/19 04:08 06/10/19 04:08 Labs: Laboratory Results - last 72 hr 06/09/19 06/09/19 06/10/19 16:55 22:15 04:08 WBC 7.6 RBC 3.65 Hgb 11.4 Hct 33.9 MCV 93 MCH 31 MCHC 34 RDW 19.5 H Plt Count 252 Lymph % (Auto) 25.3 [place] % (Auto) 7.8 H Eos % (Auto) 3.3 Baso % (Auto) 0.7 Lymph # 1.9 [place] # 0.6 Eos # 0.2 Baso # 0.1 Seg Neutrophils % 62.9 Seg Neutrophils # 4.7 Sodium Potassium Chloride Carbon Dioxide Anion Gap BUN Creatinine Estimated GFR BUN/Creatinine Ratio Glucose POC Glucose 116 H 119 H Calcium Total Bilirubin AST ALT Alkaline Phosphatase Total Protein Albumin Albumin/Globulin Ratio 06/10/19 06/10/19 04:08 07:39 WBC RBC Hgb Hct MCV MCH MCHC RDW Plt Count Lymph % (Auto) [place] % (Auto) Eos % (Auto) Baso % (Auto) Lymph # [place] # Eos # Baso # Seg Neutrophils % Seg Neutrophils # Sodium 138 Potassium 4.0 Chloride 102.6 Carbon Dioxide 22 Anion Gap 17 BUN 13 Creatinine 0.8 Estimated GFR > 60 BUN/Creatinine Ratio 16 Glucose 124 H POC Glucose 111 H Calcium 8.9 Total Bilirubin 0.40 AST 29 ALT 58 H Alkaline Phosphatase 137 H Total Protein 6.5 Albumin 3.3 L Albumin/Globulin Ratio 1.0 Assessment and Plan Intracranial hemorrhage status post craniotomy: Fall precautions, helmet on when out of bed, bed alarm, patient has been moved to room closest to the nurse's station. We'll continue to assess patient as she is a high risk for future falls. Continue restraints until she is able to control her impulses. Monitor scalp for any signs of intracranial swelling (scalp is sunken currently) Hypertension: Continue medication adjustments as needed for normotension Hyperlipidemia: continue statin GERD: Continue Protonix, monitor Constipation: continue bowel meds and monitor for normal bowel regimen Seizure: Continue seizure precaution, monitor frequently for changes in neuro status, continue Keppra Z73.6 ADL dysfunction: OT will work on improving ability to perform ADLs (including assistive devices) to increase independence and decrease caregiver burden and improve functional transfers and mobility training. R26.2 Difficulty walking: PT will work on gait training and proper use of assistive devices and advance as appropriate to use of stairs and outside ambulation on uneven surfaces. R26.81 Unsteadiness on feet: PT will work on improving static and dynamic sitting and standing balance as well as proper use of assistive devices to decrease risk of falls. R26.89 Abnormality of gait: PT will work to improve safety and efficiency of gait through neuromotor training and gait training along with instruction on proper use of assistive devices. M62.81 Muscle weakness: PT & OT will work on strengthening exercises to improve functional strength including mixture of closed and open kinetic chain exercises. R53.81 Debility: PT & OT will work on improving overall functional status to improve participation with ADLs, mobility and social involvement. R53.83 Fatigue: PT & OT will work on improving endurance through aerobic exercises and therapeutic activity while monitoring patients tolerance for activity and vital signs as needed. DVT ppx: Heparin twice a day Pain: Continue physical modalities in therapy and pain medications as needed to achieve functional pain control. Sleep: Monitor and address as needed. Bowel: Monitor and address as needed. Appetite: Monitor and address as needed. Discharge planning: Pending therapy progress and care plan meeting. Will continue discussion with therapy team, SW, patient and family. Restrictions/ Precautions: Falls, cranial flap, seizure, restraints WB status: FWB Functional Hx: ADLs: Independent Cognition: Independent Mobility: No AD Barriers to Discharge: Decreased mobility and ability to perform self care, balance deficits, weakness, confusion, impulsivity and decreased safety awareness Estimated Length of Stay: 1421 days Discharge Destination: Home with family
[2019-06-10] MEDS: PRAVACHOL PO SCH (21:42)
[2019-06-11] MEDS: LOPRESSOR PO SCH ×3 (05:24→21:45)
[2019-06-11] MEDS: PROTONIX PO SCH (08:48)
[2019-06-11] MEDS: KEPPRA PO SCH ×2 (08:48→21:45)
[2019-06-11] MEDS: HEPARIN SUB-Q SCH ×3 (08:49→21:47)
[2019-06-11] MEDS: PERIDEX MM SCH ×2 (08:49→21:47)
--- NOTE | 2019-06-11 09:13 | Progress Note ---
Subjective Date of service: 06/11/19 Principal diagnosis: ICH s/p meningioma resection Interval history: 73 yo female who underwent excision of meningioma and was discharged home in good condition with the later evolution of weakness and decline. She was evaluated and found to have an ICH and taken for emergent craniotomy. Flap remains out, helmet should be on when OOB. She underwent therapy at OSH and once she was medically stable she was transferred for further rehab. Apparently the patient did have some issues with falling and required restraints of some sort at the outside hospital. We were not made aware of this prior to accepting. She also had a fall the day before transfer. CT scan of the head showed no new injury. We took the extra precaution of moving her to a room tyson sest to the nurse's station and have placed a bed alarm on. Have discussed with nursing that she needs to be monitored closely. I have also discussed with the patient that she needs to avoid getting out of the bed without assistance. Initially upon evaluation by nursing she was already attempting to slide out of the bed. Discussed with her and nursing that if we need to we can utilize a [place] vest but would prefer to avoid that if at all possible. We will continue to monitor her progress and redirect her as much as possible but if safety warrants we will utilize a [place] vest. Keppra dose on discharge paperwork was also out of the ordinary. Contacted the referring hospital and was masha enough to be able to reach the neurosurgeon who stated there is an error in the transfer paperwork and the dose was corrected. Patient is participating in therapy and making reasonable progress. Taking rest breaks as needed. No acute events overnight. BP continues to be on the lower side, metoprolol held. Awaiting keppra level. No complaint of nasal drainage today. +BM. Denies pain, palpitations, dyspnea, cough, N/V, weakness, or joint pain. Continues to have confusion and impulsiveness. Continue restraints for safety. Restraint orders renewed but not showing correct times. Will d/c and restart. Will attempt to discuss with tech support to figure out why the orders do not appear correctly on the nursing side of EMR. At any rate - CONTINUE RESTRAINTS FOR PATIENT SAFETY. All records, vitals, labs and medications were reviewed. No other issues per patient, nursing or therapy. Objective - Exam Narrative Exam: MUSCULOSKELETAL SPECIALTY EXAM CONSTITUTIONAL: Well developed, well nourished, appropriately groomed HEENT: Right frontal crani flap out, scalp sunken, suture line healed. EOMI. No sign of nasal drainage at time of my exam. Hearing intact to soft voice RESPIRATORY: Clear to auscultation bilaterally, no increased work of breathing CARDIOVASCULAR: Regular Rate/ Rhythm, no swelling, edema or tenderness in BUE or BLE. All extremities warm. GI: + bowel sounds, soft, NTTP, nondistended. INTEGUMENTARY: Except for scalp as noted above, Normal, no lesion, rash, masses or bruising noted in extremities. MUSCULOSKELETAL: BUE and BLE normal without defect, crepitus, subluxation, effusion, arthritic changes or TTP. BUE 4/5, good ROM, with normal tone. BLE 4/5 good ROM, with normal tone NEURO: CN 2-12 grossly intact. Sensation intact in all extremities. No tremor noted in 4 extremities. POSTURE and GAIT: Sitting posture good. Balance appears reasonable. Gait fair with RW and assistance, no LOB noted during my observation, does require correction for stance and RW use. PSYCH: Alert, orientated x3, affect appears normal. Insight appears impaired with some periods of temporary improvement. Intermittent confusion and impulsive. - Constitutional Vitals: Vital Signs - 12hr 06/10/19 06/11/19 06/11/19 22:00 00:24 04:46 Temperature 33.3 C L 36.7 C Pulse Rate 77 78 Respiratory 18 18 Rate Blood Pressure Blood Pressure 102/61 101/65 [Left] O2 Sat by Pulse 99 100 Oximetry 06/11/19 08:04 Temperature 36.8 C Pulse Rate 76 Respiratory 19 Rate Blood Pressure 90/58 Blood Pressure [Left] O2 Sat by Pulse 95 Oximetry - Allied health notes Allied health notes reviewed: nursing, PT, ST, OT FIMS assessment as documented by PT/OT/ST: Grooming Patient cleans teeth/dentures: Yes Patient cl[place]/brushes hair: Yes Patient washes, rinses and Yes dries face: Patient applies make-up: No Patient performs (no make-up/ / (100%) shaving): Grooming FIM Score 5. Supervision ([place] applies toothpaste or opens containers.) Toileting Toileting Device Commode over Toilet,Grab Bar Patient able to: Adjust clothes before,Clean self,Adjust clothes after Patient able to perform: 3/3 (100%) Toileting FIM Score 4. Minimal Assistance (Patient = 75% or more. Needs touching.) Social interaction/Memory/Problem solving Social Interaction FIM Score 6. Mod. [place] (Mostly appropriate. May need meds. No supv.) Memory FIM Score 3. Moderate Assistance (Recognizes and remembers 50-74%.) Problem Solving FIM Score 3. Moderate Assistance (Solves routine problems 50-74%.) Transfers Mode of Locomotion: Walking Bed/Chair/Wheelchair Transfers 3. Moderate Assistance (Patient = 50% or more. FIM Score Some lifting.) Toilet Transfers FIM Score 3. Moderate Assistance (Patient = 50% or more. Some lifting.) Patient transferred to: Shower Shower Transfers FIM Score 4. Minimal Assistance (Patient = 75% or more. Needs touching.) Locomotion- Stairs Device used on Stairs Handrail/s Number of Stairs Ascended/ 4 Descended Patient used handrail/support: Yes Stairs FIM Score 2. Maximal Assistance (Patient = 25% or more, 4- 6 stairs.) Locomotion- walk/wheelchair Most Frequent Mode of Walking Locomotion: Ambulation Distance 150 Walking FIM Score 3. Moderate Assistance (Patient=50% or more. Lifting. Minimum 150 ft.) Wheelchair Propulsion Distance 30 Wheelchair FIM Score 1. Total Assistance (Pt. < 25%, 2 or more person assist, or <50 ft.) Eating Eating FIM Score 6. Modified [place] (Special consistency or uses device.) Dressing-Upper body Patient retrieves clothing No items: Patient applies/removes UE n/a prosthesis or orthosis: Upper Body Dressing FIM Score 4. Minimal Assistance (Patient = 75% or more. Needs touching.) Dressing-lower body Patient retrieves clothing No items: Patient applies/removes LE n/a prosthesis or orthosis: Lower Body Dressing FIM Score 4. Minimal Assistance (Patient = 75% or more. Needs touching.) - Labs CBC & Chem 7: 06/10/19 04:08 06/10/19 04:08 Labs: Laboratory Results - last 72 hr 06/09/19 06/09/19 06/10/19 16:55 22:15 04:08 WBC 7.6 RBC 3.65 Hgb 11.4 Hct 33.9 MCV 93 MCH 31 MCHC 34 RDW 19.5 H Plt Count 252 Lymph % (Auto) 25.3 [place] % (Auto) 7.8 H Eos % (Auto) 3.3 Baso % (Auto) 0.7 Lymph # 1.9 [place] # 0.6 Eos # 0.2 Baso # 0.1 Seg Neutrophils % 62.9 Seg Neutrophils # 4.7 Sodium Potassium Chloride Carbon Dioxide Anion Gap BUN Creatinine Estimated GFR BUN/Creatinine Ratio Glucose POC Glucose 116 H 119 H Calcium Total Bilirubin AST ALT Alkaline Phosphatase Total Protein Albumin Albumin/Globulin Ratio 06/10/19 06/10/19 04:08 07:39 WBC RBC Hgb Hct MCV MCH MCHC RDW Plt Count Lymph % (Auto) [place] % (Auto) Eos % (Auto) Baso % (Auto) Lymph # [place] # Eos # Baso # Seg Neutrophils % Seg Neutrophils # Sodium 138 Potassium 4.0 Chloride 102.6 Carbon Dioxide 22 Anion Gap 17 BUN 13 Creatinine 0.8 Estimated GFR > 60 BUN/Creatinine Ratio 16 Glucose 124 H POC Glucose 111 H Calcium 8.9 Total Bilirubin 0.40 AST 29 ALT 58 H Alkaline Phosphatase 137 H Total Protein 6.5 Albumin 3.3 L Albumin/Globulin Ratio 1.0 Assessment and Plan Intracranial hemorrhage status post craniotomy: Fall precautions, helmet on when out of bed, bed alarm, patient has been moved to room closest to the nurse's station. We'll continue to assess patient as she is a high risk for future falls. Continue restraints until she is able to control her impulses. Monitor scalp for any signs of intracranial swelling (scalp is sunken currently) Hypertension: Continue medication adjustments as needed for normotension - holding meds now Hyperlipidemia: continue statin GERD: Continue Protonix, monitor Constipation: continue bowel meds and monitor for normal bowel regimen Seizure: Continue seizure precaution, monitor frequently for changes in neuro status, continue Keppra Z73.6 ADL dysfunction: OT will work on improving ability to perform ADLs (including assistive devices) to increase independence and decrease caregiver burden and improve functional transfers and mobility training. R26.2 Difficulty walking: PT will work on gait training and proper use of assistive devices and advance as appropriate to use of stairs and outside ambulation on uneven surfaces. R26.81 Unsteadiness on feet: PT will work on improving static and dynamic sitting and standing balance as well as proper use of assistive devices to decrease risk of falls. R26.89 Abnormality of gait: PT will work to improve safety and efficiency of gait through neuromotor training and gait training along with instruction on proper use of assistive devices. M62.81 Muscle weakness: PT & OT will work on strengthening exercises to improve functional strength including mixture of closed and open kinetic chain exercises. R53.81 Debility: PT & OT will work on improving overall functional status to improve participation with ADLs, mobility and social involvement. R53.83 Fatigue: PT & OT will work on improving endurance through aerobic exercises and therapeutic activity while monitoring patients tolerance for activity and vital signs as needed. Decreased awareness of deficits: continue restraints for safety. Hope to trial her off next week if she continues to improve and shows better insight. DVT ppx: Heparin twice a day Pain: Continue physical modalities in therapy and pain medications as needed to achieve functional pain control. Sleep: Monitor and address as needed. Bowel: Monitor and address as needed. Appetite: Monitor and address as needed. Discharge planning: Pending therapy progress and care plan meeting. Will continue discussion with therapy team, SW, patient and family. Restrictions/ Precautions: Falls, cranial flap, seizure, restraints WB status: FWB Functional Hx: ADLs: Independent Cognition: Independent Mobility: No AD Barriers to Discharge: Decreased mobility and ability to perform self care, balance deficits, weakness, confusion, impulsivity and decreased safety awareness Estimated Length of Stay: 1421 days Discharge Destination: Home with family
[2019-06-11] MEDS ORDERED: ZOFRAN ODT PO PRN (10:30)
--- NOTE | 2019-06-11 22:07 | IRU Plan of Care ---
Interdisciplinary Plan of Care - [facility] IRU INTERDISCIPLINARY PLAN: [facility] Inpatient Rehab Unit Plan of Care IRU Interdisciplinary Care Plan Start: 06/09/19 16:03 Freq: Admission then PRN Status: Active Protocol: Document 06/11/19 20:40 TH (Rec: 06/11/19 20:44 TH [id number]) Interdisciplinary Problem List Interdisciplinary Problem List Interdisciplinary Problem List Impaired Bathing/Grooming, Query Text:Answers will Trigger Problems Impaired Dressing,Impaired and Outcomes on Worklist. Mobility,Impaired Transfers, Impaired Bladder/Bowel Management,Impaired Toileting, Impaired Problem Solving, Impaired Memory,Discharge Concerns,Impaired Home Management,Impaired Safety, Diabetes Education IRU Interdisciplinary Care Plan Therapy Services Therapy Services Will Include: Physical Therapy,Occupational Query Text:Patient will be seen for a Therapy,Speech Therapy minimum of 3 hours of daily therapy 5 out of 7 days a week. Therapy intensity may be adjusted within a 7 consecutive day period to effectively serve the individual needs of the patient. Treatment Frequency/Intensity/Duration Treatment Frequency 5 days per week Treatment Intensity 3 hours per day Treatment Duration 14-21 days Problem Area: Eating/Swallowing Eating/Swallowing Outcomes Eating/Swallowing Interventions Problem Area: Bathing/Grooming Bathing/Grooming Outcomes Improve [place] w/ Grooming,Improve [place]all w/ Bathing Bathing/Grooming Interventions ADL Training,Use of Assistive Devices,Therapeutic Exercise, Therapeutic Activity, Neuromuscular Re-Education, Balance Work,Activity Tolerance Work,Patient/ Caregiver Education Problem Area: Dressing Dressing Outcomes Improve Kendall w/ UB Dressing,Improve Kendall w/ LB Dressing Dressing Interventions Use of Assistive Devices, Neuromuscular Re-Education, Therapeutic Exercise,Balance Work,Modalities,Patient/ Caregiver Education Problem Area: Mobility Mobility Outcomes Improve [place] w/ Bed Mobility,Improve Kendall w/ Ambulation,Improve Kendall w/ Stairs/Curb, Improve Kendall w/ Wheelchair Mobility Interventions Therapeutic Exercise, Neuromuscular Re-Ed.,Use of Assistive Devices,Patient/ Caregiver Education,Bed Mobility Work,Gait Training,W/ C Mobility Work Problem Area: Transfers Transfers Outcomes Improve Kendall w/ Toilet Transfers,Improve Kendall w/ Tub/Shower Transfers Transfers Interventions Transfer Training,Therapeutic Exercise,Neuromuscular Re- Education,Visual/Perceptual Training,Activity Tolerance Work,Modalities,Use of Assistive Devices,Patient/ Caregiver Education Problem Area: Bowel/Bladder Managment Bowel/Bladder Outcomes Continent of Bladder,Continent of Bowel,Remain free of UTI Bowel/Bladder Interventions Bladder Training Program,Bowel Training Program,Patient/ Caregiver Education Problem Area: Toileting Toileting Outcomes Improve [place]all w/ Toileting Toileting Interventions ADL Training,Balance Work,Use of Assistive Devices,Patient/ Caregiver Education Problem Area: Nutrition Nutrition Outcomes Nutrition Interventions Problem Area: Comprehension Comprehension Outcomes Comprehension Interventions Problem Area: Expression Expression Outcomes Expression Interventions Problem Area: Problem Solving Problem Solving Outcomes Improve Problem Solving Problem Solving Interventions Cognitive Training,Safety Education,Patient/Caregiver Education Problem Area: Memory Memory Outcomes Memory Interventions Cognitive Training,Patient/ Caregiver Education Problem Area: Pain Management Pain Management Outcomes Pain Management Interventions Problem Area: Knowledge Deficits Knowledge Deficits Outcomes Knowledge Deficits Interventions Problem Area: Skin/Tissue Integrity Skin/Tissue Integrity Outcomes Skin/Tissue Integrity Interventions Problem Area: Social Interaction Social Interaction Outcomes Social Interaction Interventions Problem Area: Adjustment to Disability Adjustment to Disability Outcomes Adjustment to Disability Interventions Problem Area: Discharge Concerns Discharge Concerns Outcomes Discharge w/ Necessary Equipment,Have Home Health/ Outpatient Services Discharge Concerns Interventions Discharge Planning,Family/ Caregiver Conference,Family/ Caregiver Training Problem Area: Community Reintegration Community Reintegration Outcomes Community Reintegration Interventions Problem Area: Home Management Home Management Outcomes Improve Kend[place] w/ Home Management Home Management Interventions Meal Preparation,Clothing Care ,Activity Tolerance Work Problem Area: Safety Safety Outcomes Provide Safe Environment, Perform Selfcare Safely, Demonstrate Good Safety w/ Transfers/Mobility Safety Interventions Identify Fall Risk,[place] Pt. to Environment,Reduce Environmental Hazards,Neuro Check Assessment,Implement Mechanical Devices, i.e. Chair Alarm (Post Fall Update),Re- Educate Patient/Caregiver for Safety (Post Fall Update) Problem Area: Medication Education Medication Education Outcomes Medication Education Interventions Problem Area: Diabetes Education Diabetes Education Outcomes Demonstrate Knowledge of Resources Availlable in Diabetic Ed. Folder Diabetes Education Interventions Discuss Pathophysiology of Diabetes Problem Area: Oxygenation Oxygenation Outcomes Oxygenation Interventions Problem Area: Cardiovascular Cardiovascular Outcomes Cardiovascular Interventions Physician Only Medical Prognosis and Rehabilitation Fair medical prognosis. Good rehab potential. Safety awareness is large deficit. Potential (Completed by Physician) This plan of care has been developed based on the findings from the pre- admission assessment, post admission physician evaluation, information gathered from the assessments from all therapy disciplines and other pertinent clinicians. The plan of care has been reviewed and discussed in collaboration with the interdisciplinary team. The plan of care will be reviewed and updated at least weekly.
[2019-06-11] MEDS: PRAVACHOL PO SCH (22:41)
[2019-06-12] MEDS: TYLENOL PO PRN ×2 (06:35→22:43)
[2019-06-12] MEDS: KEPPRA PO SCH ×2 (09:40→22:43)
[2019-06-12] MEDS: PROTONIX PO SCH (09:43)
[2019-06-12] MEDS: LOPRESSOR PO SCH ×2 (09:44→22:45)
[2019-06-12] MEDS: HEPARIN SUB-Q SCH ×2 (09:45→22:42)
--- NOTE | 2019-06-12 17:48 | Event Note ---
Date: 06/12/19 Notified by nursing of likely CSF leak. Clear watery substance pouring from right nostril. Could not duplicate last week when I was informed of runny nose. Have placed a call to neurosurgeon - Dr Ricarda Moe. Awaiting call back. Will treat conservatively until Dr Moe requests otherwise. Patient placed on bedrest when not in therapy.
--- NOTE | 2019-06-12 21:02 | Event Note ---
Date: 06/12/19 Restraint orders are being renewed daily and show up on my screen under physician orders. They are apparently not showing up on nursing side of emr. Patient still requires restraints for her safety due to poor impulse control. Will discuss with IT on Friday
[2019-06-12] MEDS: PRAVACHOL PO SCH (22:45)
[2019-06-12] MEDS: PERIDEX MM SCH (22:46)
[2019-06-13 08:41] LABS: BUN/Creatinine Ratio 11; Blood Urea Nitrogen 10 mg/dL (7-17); Calcium 9.1 mg/dL (8.4-10.2); Hemolysis Index 0
[2019-06-13] MEDS ORDERED: COLACE PO SCH (10:00)
[2019-06-13] MEDS: HEPARIN SUB-Q SCH (10:09)
[2019-06-13] MEDS: KEPPRA PO SCH (10:14)
[2019-06-13] MEDS: LOPRESSOR PO SCH (10:15)
[2019-06-13] MEDS: PROTONIX PO SCH (10:19)
[2019-06-13] MEDS: PERIDEX MM SCH (10:24)
--- NOTE | 2019-06-13 12:42 | Event Note ---
Date: 06/13/19 Called at noon by nurse and notified of Temp of 39.2. Work up ordered. Called Neuro surgeon again and was contacted by Dr Rosa. He doesn't think there is a high probability of csf leak but said it could be possible. Asked for CT head w/o contrast to rule out pneumocephalus. If positive, would like her transferred today. If negative wants to follow up tomorrow in office. Repeat vitals showed a marked improvement in temperature. Will start broad spectrum after cultures are drawn and look to de-escalate quickly if work up negative for infectious process. Recent exams have not been c/w with pulm or urinary tract problems.
[2019-06-13] MEDS: TYLENOL PO PRN (12:44)
[2019-06-13 13:29] LABS: Basophils # (Auto) 0.1 K/mm3 (0.0-0.1); Basophils % (Auto) 0.5 % (0.0-1.8); Eosinophils % (Auto) 0.4 % (0.0-4.3); Hematocrit 31.5 % (30.3-42.9); Hemoglobin 10.3 gm/dl (10.1-14.3); Lymphocytes # (Auto) 1.4 K/mm3 (1.2-5.4); Mean Corpuscular HGB Conc 33 % (30-34); Mean Corpuscular Volume 94 fl (79-97); Monocytes # (Auto) 0.5 K/mm3 (0.0-0.8); Monocytes % (Auto) 4.3 % (0.0-7.3); Platelet Count 347 K/mm3 (140-440); Red Blood Count 3.37 M/mm3 (3.65-5.03); Red Cell Distribution Width 18.9 % (13.2-15.2)
--- NOTE | 2019-06-13 14:12 | XRay Report ---
CHEST 2 VIEWS INDICATION / CLINICAL INFORMATION: Fever. COMPARISON: 05/07/2019 FINDINGS: SUPPORT DEVICES: Endotracheal tube and NG tube have been removed. HEART / MEDIASTINUM: No significant abnormality. LUNGS / PLEURA: No significant pulmonary or pleural abnormality. No pneumothorax. ADDITIONAL FINDINGS: No significant additional findings. IMPRESSION: 1. No acute findings. Signer Name: Gagandeep Lindsey MD Signed: 06/13/2019 2:08 PM Workstation Name: [id number]
[2019-06-13] MEDS ORDERED: VANCOMYCIN PHARMACY TO DOSE IV SCH (15:00)
[2019-06-13] MEDS ORDERED: ZOSYN/NS 3.375GM/50ML 3.375 GM/50 ML BAG IV SCH (15:00)
--- NOTE | 2019-06-13 15:16 | Cat Scan Report ---
CT head/brain wo con INDICATION: Fever; possible CSF leak TECHNIQUE: Routine CT head without contrast. Sagittal and coronal reformatted images were obtained. A ll CT scans at this location are performed using CT dose reduction for ALARA by means of automated ex posure control. COMPARISON: CT scan from 05/07/2019 and 02/23/2019. FINDINGS: BRAIN / INTRACRANIAL CONTENTS: No acute hemorrhage, mass effect, midline shift, hydrocephalus, or acu te, large territorial infarct. Large right frontal craniectomy is seen. Encephalomalacia is seen in the right frontal lobe. Pneumoce phalus is seen underneath the skin flap. I do not see midline shift. Frontal horns are not compressed or displaced. I do not see CT findings to suggest paradoxical herniation or sunken flap syndrome. Small amount of fluid accumulation is seen in the right maxillary sinus. Mucosal thickening is seen i n the right inferior frontal sinus and right anterior ethmoid air cells.. Craniectomy is involving t he anterior and posterior wall of right frontal sinus. Though I do not see definite defect extending into the paranasal sinuses, more than likely, it is in the right anterior skull base. Thin section transverse and coronal images may be helpful. Encephalomalacia is seen in the remaining right frontal lobe. Periventricular low density areas are s een due to microvascular faint angiopathy. CRANIOCERVICAL JUNCTION: No significant abnormality. ORBITS: No significant abnormality of visualized orbits. SINUSES / MASTOIDS: No significant abnormality of the visualized paranasal sinuses or mastoid air jc ls. ADDITIONAL FINDINGS: None. IMPRESSION: Pneumocephalus underneath the right frontal craniectomy; No midline shift Thin section images anterior skull base would be helpful to determine the location of the CSF leak. Signer Name: Barrie Manzo MD Signed: 06/13/2019 3:12 PM Workstation Name: [id number]
[2019-06-13 15:53] LABS: Bilirubin,Urine NEG (Negative); Blood,Urine NEG (Negative); Color,Urine Yellow (Yellow); Protein,Urine <15 mg/dL mg/dL (Negative); Urobilinogen,Urine < 2.0 mg/dL (<2.0)
[2019-06-13] MEDS ORDERED: VANCOMYCIN 1,500 MG in NACL 0.9% 500 ML 500 ML IV SCH (16:00)
[2019-06-13] MEDS ORDERED: VANCOMYCIN 1,500 MG in NACL 0.9% 500 ML 500 ML IV ONE (16:00)
--- NOTE | 2019-06-13 16:08 | Discharge Summary ---
Providers - Providers Date of Admission: 06/09/19 15:18 Date of discharge: 06/13/19 Attending physician: BETY RODRIGUEZ III, MD 06/09/19 14:47 Occupational Therapy Evaluate and Treat [CONS] Routine Comment: Reason For Exam: ADL dysfunction Physical Therapy Evaluation and Treat [CONS] Routine Comment: Reason For Exam: Mobility Dysfunction Speech Therapy Evaluation and Treat [CONS] Routine Reason For Exam: COgnitive and swallow 06/09/19 14:56 Consult to Case Management [CONS] Routine Services Needed at Discharge: Home Health Services Notified:: THEORETICAL PHYSICS TEACHERcare program resident physician: ISMA BALLESTEROS Hospitalization Reason for admission: ICH s/p meninigoma resection Condition: Fair Pertinent studies: CT Head 06/13/2019 - Positive for pneumocephalus Hospital course: Patient was admitted 06/09/2019 from [facility] in [place]. Keppra dose was corrected after calling [facility]. Keppra level returned today and was elevated at 71.0. Patient was doing well and making progress with therapy. No major issues. BP started to drift downward. Nursing reported a runny nose. I monitored and interacted with the patient for 10 mins that morning and could not duplicate any drainage so my concern for CSF leak decreased a little. SHe stated that she typically used Flonase for allergies. I opted to not start Flonase on the chance there was a CSF leak. I was called Friday and notified by a nurse with Neuro experience that she was again running clear fluid that appeared to be consistent with CSF. I ordered testing to confirm the CSF (send out - not back yet) and placed patient on bed rest. Also notified neurosurgeon group of potential issue. I was called back today and told the patient had a fever. Ordered a fever work up and again notified the neurosurgeon. Dr Flanagan asked for a head CT and transfer if there was any sign of pneumocephalus. CT head was positive for pneumocephalus. Dr Flanagan was notified and transfer was started. Patient is stable otherwise. WBC elevated at 12.0. I spoke with the patient's daughter and informed her of the events and transfer. We are happy to accept the patient back for continuation of rehab once she is medically stable pending insurance approval. Disposition: [id number] ANOTHER TYPE HLTHCARE Time spent for discharge: >30mins Core Measure Documentation - Palliative Care Palliative Care/ Comfort Measures: Not Applicable - Core Measures Any of the following diagnoses?: none Exam - Physical Exam Narrative exam: Physical Exam from Friday MUSCULOSKELETAL SPECIALTY EXAM CONSTITUTIONAL: Well developed, well nourished, appropriately groomed HEENT: Right frontal crani flap out, scalp sunken, suture line healed. EOMI. No sign of nasal drainage at time of my exam. Hearing intact to soft voice RESPIRATORY: Clear to auscultation bilaterally, no increased work of breathing CARDIOVASCULAR: Regular Rate/ Rhythm, no swelling, edema or tenderness in BUE or BLE. All extremities warm. GI: + bowel sounds, soft, NTTP, nondistended. INTEGUMENTARY: Except for scalp as noted above, Normal, no lesion, rash, masses or bruising noted in extremities. MUSCULOSKELETAL: BUE and BLE normal without defect, crepitus, subluxation, effusion, arthritic changes or TTP. BUE 4/5, good ROM, with normal tone. BLE 4/5 good ROM, with normal tone NEURO: CN 2-12 grossly intact. Sensation intact in all extremities. No tremor noted in 4 extremities. POSTURE and GAIT: Sitting posture good. Balance appears reasonable. Gait fair with RW and assistance, no LOB noted during my observation, does require correction for stance and RW use. PSYCH: Alert, orientated x3, affect appears normal. Insight appears impaired with some periods of temporary improvement. Intermittent confusion and impulsive. - Constitutional Vitals: Temp Pulse Resp BP Pulse Ox 37.6 C H 80 18 96/56 95 06/13/19 12:24 06/13/19 12:24 06/13/19 12:24 06/13/19 12:24 06/13/19 12:24 Plan Activity: advance as tolerated, no driving until cleared by PCP, fall precautions, other (restraints due to impulsiveness) Weight Bearing Status: Full Weight Bearing Diet: regular ([facility] soft) Special Instructions: other (transfer to [facility] Neuro unit under Dr Flanagan)
[2019-06-13 17:33] VITALS: BP 91/50
[2019-06-13] MEDS ORDERED: NACL 0.9% 1000 ML 1,000 ML IV SCH (18:00)
[2019-06-14] MEDS ORDERED: VANCOMYCIN 500 MG in NACL 0.9% 100 ML IV SCH (16:30)
== END 2019-06-13 17:50 | disposition short-term general hospital (02) | DRG 66 ==
LOC: UNDOADMIN 10:43 → 3A 10:43 → 3B 15:18
PROVIDERS: ADMIT Physical Medicine & Rehabilitation; ATTEND Physical Medicine & Rehabilitation
DX: I62.9 Nontraumatic intracranial hemorrhage, unspecified (principal); G93.89 Other specified disorders of brain; I10 Essential (primary) hypertension; E78.5 Hyperlipidemia, unspecified; K21.9 Gastro-esophageal reflux disease without esophagitis; K59.00 Constipation, unspecified; R56.9 Unspecified convulsions; R26.81 Unsteadiness on feet; R26.89 Other abnormalities of gait and mobility; R53.81 Other malaise; M62.81 Muscle weakness (generalized); Z73.6 Limitation of activities due to disability
CPT/HCPCS: 36415; 70450; 71046; 80048; 80053; 80177; 81001; 82962; 85025; 87040; 87086; G0378; G0515; A9270-GY; J1644; J2543; J3370; J7040

== ENCOUNTER 2019-06-22 13:48 | Inpatient (IN) | payer MEDICARE ==
[2019-06-22] MEDS ORDERED: ALUM-MAG HYDROX-SIMETH 200-200-20MG/5ML PO PRN (19:16)
[2019-06-22] MEDS ORDERED: DULCOLAX PR PRN (19:16)
[2019-06-22] MEDS ORDERED: TYLENOL PO PRN (19:16)
[2019-06-22] MEDS ORDERED: ZOFRAN ODT PO PRN (19:23)
--- NOTE | 2019-06-22 19:56 | History and Physical Report ---
History of Present Illness Date: 06/22/19 Date of admission: 06/22/19 18:30 Chief Complaint: ICH History of present illness: 73 yo female who underwent excision of meningioma and was discharged home in good condition with the later evolution of weakness and decline. She was evaluated and found to have an ICH and taken for emergent craniotomy. Flap was out when she was last here, helmet should be on when OOB. During her last stay with us she was returned to the outside hospital for a CSF leak from the right nostril. She also had an elevated white count along with a fever. Once returned to the outside hospital she underwent antibiotic treatment as well as surgical repair of the cranial defect which is now bandaged. She underwent therapy at OSH and still needs further therapy in order to return to prior level of functioning as well as to be able to return home safely. Once she was medically stable she was transferred for further rehab. Have placed a bed alarm on. Have discussed with nursing that she needs to be monitored closely. I have also discussed with the patient that she needs to avoid getting out of the bed without assistance. Past History Past Medical History: anemia, GERD, hypertension, hyperlipidemia, seizures, other (benign meningioma, CKD, dizziness) Past Surgical History: cholecystectomy, , Other (meningioma resection, craniotomy now replaced, acromial spur removal) Social history: lives with family, full code. denies: smoking, alcohol abuse, prescription drug abuse, IV drug use Family history: CAD, diabetes, hypertension Medications and Allergies Allergies Allergy/AdvReac Type Severity Reaction Status Date / Time adhesive tape Allergy Unknown Verified 05/07/19 10:00 Home Medications Medication Instructions Recorded Confirmed Last Taken Type Acetaminophen [Acetaminophen TAB] 650 mg PO Q4H PRN tablet 06/13/19 Unknown Rx Bisacodyl [Dulcolax suppos] 10 mg [place] QDAY PRN supp.rect 06/13/19 Unknown Rx Chlorhexidine Mouthwash [Peridex] 15 ml MM BID bottle 06/13/19 Unknown Rx Docusate Sodium [Colace CAP] 100 mg PO DAILY capsule 06/13/19 Unknown Rx Magnesium Hydroxide [Milk of 30 ml PO Q4H PRN oral.liqd 06/13/19 Unknown Rx Magnesia] Metoprolol [Lopressor TAB] 12.5 mg PO BID tablet 06/13/19 Unknown Rx Ondansetron [Zofran ODT TAB] 4 mg PO Q8H PRN tab.rapdis 06/13/19 Unknown Rx Pantoprazole [Protonix TAB] 40 mg PO QDAY tablet 06/13/19 Unknown Rx Pravastatin [Pravachol] 40 mg PO QHS tablet 06/13/19 Unknown Rx QUEtiapine [SEROquel] 12.5 mg PO HS tablet 06/13/19 Unknown Rx levETIRAcetam [Keppra TAB] 1,000 mg PO BID tablet 06/13/19 Unknown Rx Active Meds: Active Medications Acetaminophen (Tylenol) 650 mg PO Q4H PRN PRN Reason: Pain MILD(1-3)/Fever >100.5/MURRY Al Hydrox/Mg Hydrox/Simethicone (Alum-Mag Hydrox-Simeth [phone]/5ml) 30 ml PO Q4H PRN PRN Reason: Indigestion Bisacodyl (Dulcolax) 10 mg [place] QDAY PRN PRN Reason: Constip unreliev by MOM/or NPO Heparin Sodium (Porcine) (Heparin) 5,000 unit SUB-Q Q12HR LAEX Levetiracetam (Keppra) 1,000 mg PO BID ALEX Metoprolol Tartrate (Lopressor) 12.5 mg PO BID ALEX Ondansetron HCl (Zofran Odt) 4 mg PO Q8H PRN PRN Reason: Nausea And Vomiting Pantoprazole Sodium (Protonix) 40 mg PO QDAY ALEX Pravastatin Sodium (Pravachol) 40 mg PO QHS ALEX Quetiapine Fumarate (Seroquel) 12.5 mg PO QHS ALEX Review of Systems All systems: negative (ROS negative for 12 systems except as noted below with pertinent positives and negatives.) Constitutional: no weight loss, no fever, no chills Ears, nose, mouth and throat: no decreased hearing, no nasal discharge, no headache Cardiovascular: high blood pressure, no rapid/irregular heart beat, no shortness of breath Respiratory: no cough with sputum, no shortness of breath Gastrointestinal: no nausea, no vomiting Musculoskeletal: no neck stiffness Integumentary: other (scalp surgical wound dressed), no rash, no pruritis Neurological: seizures, confusion, balance difficulties, gait dysfunction, motor disturbance, no numbness, no headaches Psychiatric: no anxiety, no sleep disturbances Exam - Exam Narrative exam: MUSCULOSKELETAL SPECIALTY EXAM CONSTITUTIONAL: Well developed, well nourished, appropriately groomed LYMPHATIC: No appreciable abnormalities palpable in neck HEENT: Right frontal crani flap replaced, suture line bandaged. Visual painting full to confrontation. EOMI. Oropharynx clear. Hearing intact to soft voice RESPIRATORY: Clear to auscultation bilaterally, no increased work of breathing CARDIOVASCULAR: Regular Rate/ Rhythm, no swelling, edema or tenderness in BUE or BLE. Pulses palpable in all extremities. All extremities warm. GI: + bowel sounds, soft, NTTP, nondistended. INTEGUMENTARY: Except for scalp as noted above, Normal, no lesion, rash, masses or bruising noted in extremities. MUSCULOSKELETAL: BUE and BLE normal without defect, crepitus, subluxation, effusion, arthritic changes or TTP. BUE 4/5, good ROM, with normal tone. BLE 4/5 good ROM, with normal tone NEURO: CN 2-12 grossly intact. Sensation intact in all extremities. Reflexes 2+ bilaterally at biceps, brachioradialis and patella. No clonus at ankles. Coordination intact in BUE. No tremor noted in 4 extremities. POSTURE and GAIT: Sitting posture good. Balance appears reasonable. Gait deferred until seen with therapy. PSYCH: Alert, orientated x3, affect appears normal. Insight appears impaired. Intermittent confusion and impulsiveness, but better than previous admission. Assessment and Plan Assessment and plan: Patient was assessed and evaluated for Acute Inpatient Rehab Unit. Due to the patients above-mentioned medical complexity, along with decreased functional mobility and self care, this patient continues to require and be appropriate for a comprehensive, multidisciplinary [id number] rehabilitation program. These needs cannot be met in an outpatient or other less intensive setting. The patient would continue to benefit from skilled therapy intervention for at least 3 hours per day, five days a week, with techniques specific to the needs of the patient to improve function, activities of daily living, and reintegration into the community. The patient continues to require: -- OT to improve ROM, self-care, and learn use of adaptive equipment -- PT to improve strength and balance, functional transfers, and ambulation with energy conservation techniques to improve functional mobility -- SENIOR TECHNICAL SUPPORT ENGINEER to address cognitive deficits and swallowing ability -- 24 hour RN to ensure and prevent skin breakdown, promote progressive independence while ensuring safety, ensure education regarding medications, and incorporation of the rehabilitation at the bedside -- 24 hour News Correspondent to coordinate this interdisciplinary program, and to manage/prevent complications as a result of the patients medical comorbidities. -Plan of care by day 4 -Weekly team conferences With such a program, there is a reasonable certainty that the goals individualized for this patient can be achieved within the specified length of stay. Intracranial hemorrhage status post craniotomy: Fall precautions, helmet on when out of bed, bed alarm. We'll continue to assess patient as she is a high risk for future falls. May need to utilize other restraints until she is able to control her impulses. Monitor scalp for any signs of changes or infection. Will attempt to get suture/staple removal orders from [facility]. Hypertension: Continue medication adjustments as needed for normotension Hyperlipidemia: continue statin GERD: Continue Protonix, monitor Constipation: continue bowel meds and monitor for normal bowel regimen Seizure: Continue seizure precaution, monitor frequently for changes in neuro status, continue Keppra Z73.6 ADL dysfunction: OT will work on improving ability to perform ADLs (including assistive devices) to increase independence and decrease caregiver burden and improve functional transfers and mobility training. R26.2 Difficulty walking: PT will work on gait training and proper use of assistive devices and advance as appropriate to use of stairs and outside ambulation on uneven surfaces. R26.81 Unsteadiness on feet: PT will work on improving static and dynamic sitting and standing balance as well as proper use of assistive devices to decrease risk of falls. R26.89 Abnormality of gait: PT will work to improve safety and efficiency of gait through neuromotor training and gait training along with instruction on proper use of assistive devices. M62.81 Muscle weakness: PT & OT will work on strengthening exercises to improve functional strength including mixture of closed and open kinetic chain exercises. R53.81 Debility: PT & OT will work on improving overall functional status to improve participation with ADLs, mobility and social involvement. R53.83 Fatigue: PT & OT will work on improving endurance through aerobic exercises and therapeutic activity while monitoring patients tolerance for activity and vital signs as needed. DVT ppx: Heparin twice a day Pain: Continue physical modalities in therapy and pain medications as needed to achieve functional pain control. Sleep: Monitor and address as needed. Bowel: Monitor and address as needed. Appetite: Monitor and address as needed. Discharge planning: Pending therapy progress and care plan meeting. Will continue discussion with therapy team, SW, patient and family. Restrictions/ Precautions: Falls, cranial flap replaced (helmet on when out of bed), seizure WB status: FWB Functional Hx: ADLs: Independent Cognition: Independent Mobility: No AD Barriers to Discharge: Decreased mobility and ability to perform self care, balance deficits, weakness, and impulsivity, decreased awareness of safety Estimated Length of Stay: 10-14 days Discharge Destination: Home with family POST ADMISSION PHYSICIAN EVALUATION I have examined the patient and find that functional status, medical condition and appropriateness for IRF admission are essentially unchanged from those described in the preadmission screening. Will monitor for worsening neuro status, seizure activity, falls, impulse control, DVT/PE, bowel and bladder complications and complications due to hypertension, GERD and electrolyte abnormalities. Will attempt to avoid occurrence of these issues or treat them if they present themselves.
[2019-06-22] MEDS: KEPPRA PO SCH (22:26)
[2019-06-22] MEDS: LOPRESSOR PO SCH (22:27)
[2019-06-22] MEDS: HEPARIN SUB-Q SCH (22:27)
[2019-06-22] MEDS: PRAVACHOL PO SCH (22:46)
[2019-06-23 07:50] LABS: Alanine Aminotransferase 11 units/L (7-56); Albumin 3.3 g/dL (3.9-5); BUN/Creatinine Ratio 10; Blood Urea Nitrogen 8 mg/dL (7-17); Calcium 9.1 mg/dL (8.4-10.2); Hemolysis Index 15
[2019-06-23 08:04] LABS: Hematocrit 30.1 % (30.3-42.9); Hemoglobin 10.2 gm/dl (10.1-14.3); Mean Corpuscular HGB Conc 34 % (30-34); Mean Corpuscular Volume 91 fl (79-97); Platelet Count 552 K/mm3 (140-440); Red Blood Count 3.29 M/mm3 (3.65-5.03); Red Cell Distribution Width 17.2 % (13.2-15.2)
--- NOTE | 2019-06-23 09:18 | Progress Note ---
Subjective Date of service: 06/23/19 Principal diagnosis: ICH Interval history: 73 yo female who underwent excision of meningioma and was discharged home in good condition with the later evolution of weakness and decline. She was evaluated and found to have an ICH and taken for emergent craniotomy. Flap was out when she was last here, helmet should be on when OOB. During her last stay with us she was returned to the outside hospital for a CSF leak from the right nostril. She also had an elevated white count along with a fever. Once returned to the outside hospital she underwent antibiotic treatment as well as surgical repair of the cranial defect which is now bandaged. She underwent therapy at OSH and still needs further therapy in order to return to prior level of functioning as well as to be able to return home safely. Once she was medically stable she was transferred for further rehab. Have placed a bed alarm on. Have discussed with nursing that she needs to be monitored closely. I have also discussed with the patient that she needs to avoid getting out of the bed without assistance. Patient is participating in therapy and making reasonable progress. Taking rest breaks as needed. No reports of getting out of bed without assistance. Hopefully the dec reased impulsiveness continues. +BM. Denies MURRY, nasal drainage, pain, palpitations, dyspnea, cough, N/V or joint pain. All records, vitals, labs and medications were reviewed. No other issues per patient, nursing or therapy. Objective - Exam Narrative Exam: MUSCULOSKELETAL SPECIALTY EXAM CONSTITUTIONAL: Well developed, well nourished, appropriately groomed HEENT: Right frontal crani flap replaced, suture line bandaged. EOMI. Hearing intact to soft voice RESPIRATORY: Clear to auscultation bilaterally, no increased work of breathing CARDIOVASCULAR: Regular Rate/ Rhythm, no swelling, edema or tenderness in BUE or BLE. All extremities warm. GI: + bowel sounds, soft, NTTP, nondistended. INTEGUMENTARY: Except for scalp as noted above, Normal, no lesion, rash, masses or bruising noted in extremities. MUSCULOSKELETAL: BUE and BLE normal without defect, crepitus, subluxation, effusion, arthritic changes or TTP. BUE 4/5, good ROM, with normal tone. BLE 4/5 good ROM, with normal tone NEURO: CN 2-12 grossly intact. Sensation intact in all extremities. No tremor noted in 4 extremities. POSTURE and GAIT: Sitting posture good. Balance appears reasonable. Gait deferred until seen with therapy. PSYCH: Alert, orientated x3, affect appears normal. Insight appears slightly impaired. Intermittent confusion and impulsiveness, but better than previous admission. - Constitutional Vitals: Vital Signs - 12hr 06/23/19 06/23/19 05:32 07:26 Temperature 36.6 C 36.5 C Pulse Rate 67 64 Respiratory 18 18 Rate Blood Pressure 120/61 Blood Pressure 115/65 [Right] O2 Sat by Pulse 96 96 Oximetry - Allied health notes Allied health notes reviewed: nursing, PT, ST, OT - Labs CBC & Chem 7: 06/23/19 06:48 06/23/19 06:48 Labs: Laboratory Results - last 72 hr 06/22/19 06/23/19 06/23/19 21:37 06:48 06:48 WBC 8.5 RBC 3.29 L Hgb 10.2 Hct 30.1 L MCV 91 MCH 31 MCHC 34 RDW 17.2 H Plt Count 552 H Sodium 145 Potassium 4.0 Chloride 105.4 Carbon Dioxide 29 Anion Gap 15 BUN 8 Creatinine 0.8 Estimated GFR > 60 BUN/Creatinine Ratio 10 Glucose 125 H POC Glucose 102 Calcium 9.1 Total Bilirubin 0.20 AST 16 ALT 11 Alkaline Phosphatase 116 Total Protein 6.2 L Albumin 3.3 L Albumin/Globulin Ratio 1.1 06/23/19 07:32 WBC RBC Hgb Hct MCV MCH MCHC RDW Plt Count Sodium Potassium Chloride Carbon Dioxide Anion Gap BUN Creatinine Estimated GFR BUN/Creatinine Ratio Glucose POC Glucose 121 H Calcium Total Bilirubin AST ALT Alkaline Phosphatase Total Protein Albumin Albumin/Globulin Ratio Assessment and Plan Intracranial hemorrhage status post craniotomy: Fall precautions, helmet on when out of bed, bed alarm. We'll continue to assess patient as she is a high risk for future falls. May need to utilize other restraints until she is able to control her impulses. Monitor scalp for any signs of changes or infection. Will attempt to get suture/staple removal orders from [facility]UR[facility]. Hypertension: Continue medication adjustments as needed for normotension Hyperlipidemia: continue statin GERD: Continue Protonix, monitor Constipation: continue bowel meds and monitor for normal bowel regimen Seizure: Continue seizure precaution, monitor frequently for changes in neuro status, continue Keppra Z73.6 ADL dysfunction: OT will work on improving ability to perform ADLs (including assistive devices) to increase independence and decrease caregiver burden and improve functional transfers and mobility training. R26.2 Difficulty walking: PT will work on gait training and proper use of assistive devices and advance as appropriate to use of stairs and outside ambulation on uneven surfaces. R26.81 Unsteadiness on feet: PT will work on improving static and dynamic sitting and standing balance as well as proper use of assistive devices to decrease risk of falls. R26.89 Abnormality of gait: PT will work to improve safety and efficiency of gait through neuromotor training and gait training along with instruction on proper use of assistive devices. M62.81 Muscle weakness: PT & OT will work on strengthening exercises to improve functional strength including mixture of closed and open kinetic chain exercises. R53.81 Debility: PT & OT will work on improving overall functional status to improve participation with ADLs, mobility and social involvement. R53.83 Fatigue: PT & OT will work on improving endurance through aerobic exercises and therapeutic activity while monitoring patients tolerance for activity and vital signs as needed. DVT ppx: Heparin twice a day Pain: Continue physical modalities in therapy and pain medications as needed to achieve functional pain control. Sleep: Monitor and address as needed. Bowel: Monitor and address as needed. Appetite: Monitor and address as needed. Discharge planning: Pending therapy progress and care plan meeting. Abdirizak becerrilinbrenden discussion with therapy team, WAYLON, patient and family. Restrictions/ Precautions: Falls, cranial flap replaced (helmet on when out of bed), seizure WB status: FWB Functional Hx: ADLs: Independent Cognition: Independent Mobility: No AD Barriers to Discharge: Decreased mobility and ability to perform self care, balance deficits, weakness, and impulsivity, decreased awareness of safety Estimated Length of Stay: 10-14 days Discharge Destination: Home with family
[2019-06-23] MEDS: LOPRESSOR PO SCH ×2 (09:51→22:16)
[2019-06-23] MEDS: KEPPRA PO SCH ×2 (09:51→22:16)
[2019-06-23] MEDS: HEPARIN SUB-Q SCH ×2 (09:51→22:17)
[2019-06-23] MEDS: PROTONIX PO SCH (09:51)
[2019-06-23 11:26] LABS: Band Neutrophils # (Manual) 0.2 K/mm3; Basophils % (Manual) 0 % (0.0-1.8); Total Cells Counted 100
[2019-06-23 11:27] LABS: Anisocytosis 1+; Macrocytosis Few; Platelet Clumps Rare; Platelet Estimate Consistent w Auto
[2019-06-23] MEDS: PRAVACHOL PO SCH (22:17)
--- NOTE | 2019-06-24 09:35 | Progress Note ---
Subjective Date of service: 06/24/19 Principal diagnosis: ICH Interval history: 73 yo female who underwent excision of meningioma and was discharged home in good condition with the later evolution of weakness and decline. She was evaluated and found to have an ICH and taken for emergent craniotomy. Flap was out when she was last here, helmet should be on when OOB. During her last stay with us she was returned to the outside hospital for a CSF leak from the right nostril. She also had an elevated white count along with a fever. Once returned to the outside hospital she underwent antibiotic treatment as well as surgical repair of the cranial defect which is now bandaged. She underwent therapy at OSH and still needs further therapy in order to return to prior level of functioning as well as to be able to return home safely. Once she was medically stable she was transferred for further rehab. Have placed a bed alarm on. Have discussed with nursing that she needs to be monitored closely. I have also discussed with the patient that she needs to avoid getting out of the bed without assistance. Patient is participating in therapy and making reasonable progress. Taking rest breaks as needed. No reports of getting out of bed without assistance. Hopefully the decreased impulsiveness continues. BP has been a little variable and tends to be on the low side. Metoprolol low dose, may trial her off to see how high her BP gets. Want to avoid any factors that would incite dizziness or fall. Will need to monitor BP closely given recent ICH. +BM. Denies MURRY, nasal drainage, pain, palpitations, dyspnea, cough, N/V or joint pain. Discussed in team conference. [place] . Able to ambulate with assistance as before but is still having LOB and is unsafe to ambulate alone with or without AD. Patient will discharge home with family but family is working during day. Still having cognitive issues and not quite fully independent from that standpoint. Impulsivity has improved and we have been able to avoid restraints thus far. Continue to work to improve strength, endurance, balance, safety awareness and cognition. All records, vitals, labs and medications were reviewed. No other issues per patient, nursing or therapy. Objective - Exam Narrative Exam: MUSCULOSKELETAL SPECIALTY EXAM CONSTITUTIONAL: Well developed, well nourished, appropriately groomed HEENT: Right frontal crani flap replaced, suture line bandaged. EOMI. Hearing intact to soft voice RESPIRATORY: Clear to auscultation bilaterally, no increased work of breathing CARDIOVASCULAR: Regular Rate/ Rhythm, no swelling, edema or tenderness in BUE or BLE. All extremities warm. GI: + bowel sounds, soft, NTTP, nondistended. INTEGUMENTARY: Except for scalp as noted above, Normal, no lesion, rash, masses or bruising noted in extremities. MUSCULOSKELETAL: BUE and BLE normal without defect, crepitus, subluxation, effusion, arthritic changes or TTP. BUE 4/5, good ROM, with normal tone. BLE 4/5 good ROM, with normal tone NEURO: CN 2-12 grossly intact. Sensation intact in all extremities. No tremor noted in 4 extremities. POSTURE and GAIT: Sitting posture good. Balance appears reasonable with LOB when challenged, only slight when not challenged. Observed with therapy, gait is slowed and LOB during shorter distances noted. PSYCH: Alert, orientated x3, affect appears normal. Insight appears slightly impaired. Intermittent confusion and impulsiveness, but better than previous admission. - Constitutional Vitals: Vital Signs - 12hr 06/23/19 06/24/19 06/24/19 22:16 07:08 07:54 Temperature 36.6 C 36.6 C Pulse Rate 10 L 69 69 Respiratory 20 18 Rate Blood Pressure 93/61 107/63 [Right] O2 Sat by Pulse 95 95 Oximetry - Allied health notes Allied health notes reviewed: nursing, PT, ST, OT FIMS assessment as documented by PT/OT/ST: Grooming Patient cleans teeth/dentures: Yes Patient [place]/brushes hair: Yes Patient washes, rinses and Yes dries face: Patient washes, rinses and Yes dries hands: Patient applies make-up: No Patient performs (no make-up/ 4/4 (100%) shaving): Grooming FIM Score 4. Minimal Assistance (Patient = 75% or more. Needs touching.) Toileting Toileting Device Commode over Toilet Patient able to: Adjust clothes before,Clean self,Adjust clothes after Patient able to perform: 3/3 (100%) Toileting FIM Score 4. Minimal Assistance (Patient = 75% or more. Needs touching.) Social interaction/Memory/Problem solving Social Interaction FIM Score 4. Minimal Assistance (Interacts appropriately 75-90%.) Memory FIM Score 5. Supervision (Needs cueing <10%, stressful/ unfamiliar situations.) Problem Solving FIM Score 4. Minimal Assistance (Solves routine problems 75-90%.) Transfers Mode of Locomotion: Wheelchair Bed/Chair/Wheelchair Transfers 4. Minimal Assistance (Patient = 75% or more. FIM Score Needs touching.) Toilet Transfers FIM Score 4. Minimal Assistance (Patient = 75% or more. Needs touching.) Patient transferred to: Shower Shower Transfers FIM Score 4. Minimal Assistance (Patient = 75% or more. Needs touching.) Locomotion- Stairs Device used on Stairs Handrail/s Number of Stairs Ascended/ 12 Descended Patient used handrail/support: Yes Stairs FIM Score 4. Minimal Assistance (Patient = 75% or more, touching. 12-14 stairs.) Locomotion- walk/wheelchair Most Frequent Mode of Wheelchair Locomotion: Ambulation Distance 50 Walking FIM Score 4. Minimal Assistance (Patient = 75% or more. Minimum of 150 ft.) Wheelchair Propulsion Distance 230 Wheelchair FIM Score 5. Supervision (Minimum 150 ft. supv./cues or 50 ft. independently.) Eating Eating FIM Score 5. Supervision/Set-Up (Needs help w/ containers, cutting meat, etc.) Dressing-Upper body Patient retrieves clothing No items: Patient applies/removes UE n/a prosthesis or orthosis: Upper Body Dressing FIM Score 5. Supv./Set-Up ([place] sets out clothes or applies pros./orth.) Dressing-lower body Patient retrieves clothing No items: Patient applies/removes LE n/a prosthesis or orthosis: Lower Body Dressing FIM Score 5. Supv./Set-Up ([place] sets out clothes or applies pros./orth.) - Labs CBC & Chem 7: 06/23/19 06:48 06/23/19 06:48 Labs: Laboratory Results - last 72 hr 06/22/19 06/23/19 06/23/19 21:37 06:48 06:48 WBC 8.5 RBC 3.29 L Hgb 10.2 Hct 30.1 L MCV 91 MCH 31 MCHC 34 RDW 17.2 H Plt Count 552 H Add Manual Diff Complete Total Counted 100 Seg Neuts % (Manual) 60.0 Band Neutrophils % 2.0 Lymphocytes % (Manual) 27.0 Reactive Lymphs % (Man) 0 Monocytes % (Manual) 8.0 H Eosinophils % (Manual) 3.0 Basophils % (Manual) 0 Metamyelocytes % 0 Myelocytes % 0 Promyelocytes % 0 Blast Cells % 0 Nucleated RBC % Not Reportable Seg Neutrophils # Man 5.1 Band Neutrophils # 0.2 Lymphocytes # (Manual) 2.3 Abs React Lymphs (Man) 0.0 Monocytes # (Manual) 0.7 Eosinophils # (Manual) 0.3 Basophils # (Manual) 0.0 Metamyelocytes # 0.0 Myelocytes # 0.0 Promyelocytes # 0.0 Blast Cells # 0.0 WBC Morphology Not Reportable Hypersegmented Neuts Not Reportable Hyposegmented Neuts Not Reportable Hypogranular Neuts Not Reportable Smudge Cells Not Reportable Toxic Granulation Not Reportable Toxic Vacuolation Not Reportable Dohle Bodies Not Reportable Pelger-Huet Anomaly Not Reportable Caroline Rods Not Reportable Platelet Estimate Consistent w auto Clumped Platelets Rare Plt Clumps, EDTA Not Reportable Large Platelets Not Reportable Giant Platelets Not Reportable Platelet Satelliting Not Reportable Plt Morphology Comment Not Reportable RBC Morphology Not Reportable Dimorphic RBCs Not Reportable Polychromasia Not Reportable Hypochromasia Not Reportable Poikilocytosis Not Reportable Anisocytosis 1+ Microcytosis Not Reportable Macrocytosis Few Spherocytes Not Reportable Pappenheimer Bodies Not Reportable Sickle Cells Not Reportable Target Cells Not Reportable Tear Drop Cells Not Reportable Ovalocytes Not Reportable Helmet Cells Not Reportable [place] Bodies Not Reportable Hughes Rings Not Reportable Raccoon Cells Not Reportable Bite Cells Not Reportable Crenated Cell Not Reportable Elliptocytes Not Reportable Acanthocytes (Spur) Not Reportable Rouleaux Not Reportable Hemoglobin C Crystals Not Reportable Schistocytes Not Reportable Malaria parasites Not Reportable Bryson Bodies Not Reportable Hem Pathologist Commnt No Sodium 145 Potassium 4.0 Chloride 105.4 Carbon Dioxide 29 Anion Gap 15 BUN 8 Creatinine 0.8 Estimated GFR > 60 BUN/Creatinine Ratio 10 Glucose 125 H POC Glucose 102 Calcium 9.1 Total Bilirubin 0.20 AST 16 ALT 11 Alkaline Phosphatase 116 Total Protein 6.2 L Albumin 3.3 L Albumin/Globulin Ratio 1.1 06/23/19 06/23/19 06/23/19 07:32 11:15 16:38 WBC RBC Hgb Hct MCV MCH MCHC RDW Plt Count Add Manual Diff Total Counted Seg Neuts % (Manual) Band Neutrophils % Lymphocytes % (Manual) Reactive Lymphs % (Man) Monocytes % (Manual) Eosinophils % (Manual) Basophils % (Manual) Metamyelocytes % Myelocytes % Promyelocytes % Blast Cells % Nucleated RBC % Seg Neutrophils # Man Band Neutrophils # Lymphocytes # (Manual) Abs React Lymphs (Man) Monocytes # (Manual) Eosinophils # (Manual) Basophils # (Manual) Metamyelocytes # Myelocytes # Promyelocytes # Blast Cells # WBC Morphology Hypersegmented Neuts Hyposegmented Neuts Hypogranular Neuts Smudge Cells Toxic Granulation Toxic Vacuolation Dohle Bodies Pelger-Huet Anomaly Caroline Rods Platelet Estimate Clumped Platelets Plt Clumps, EDTA Large Platelets Giant Platelets Platelet Satelliting Plt Morphology Comment RBC Morphology Dimorphic RBCs Polychromasia Hypochromasia Poikilocytosis Anisocytosis Microcytosis Macrocytosis Spherocytes Pappenheimer Bodies Sickle Cells Target Cells Tear Drop Cells Ovalocytes Helmet Cells [place] Bodies Hughes Rings Roger Cells Bite Cells Crenated Cell Elliptocytes Acanthocytes (Spur) Rouleaux Hemoglobin C Crystals Schistocytes Malaria parasites Bryson Bodies Hem Pathologist Commnt Sodium Potassium Chloride Carbon Dioxide Anion Gap BUN Creatinine Estimated GFR BUN/Creatinine Ratio Glucose POC Glucose 121 H 155 H 95 Calcium Total Bilirubin AST ALT Alkaline Phosphatase Total Protein Albumin Albumin/Globulin Ratio 06/23/19 06/24/19 21:51 07:42 WBC RBC Hgb Hct MCV MCH MCHC RDW Plt Count Add Manual Diff Total Counted Seg Neuts % (Manual) Band Neutrophils % Lymphocytes % (Manual) Reactive Lymphs % (Man) Monocytes % (Manual) Eosinophils % (Manual) Basophils % (Manual) Metamyelocytes % Myelocytes % Promyelocytes % Blast Cells % Nucleated RBC % Seg Neutrophils # Man Band Neutrophils # Lymphocytes # (Manual) Abs React Lymphs (Man) Monocytes # (Manual) Eosinophils # (Manual) Basophils # (Manual) Metamyelocytes # Myelocytes # Promyelocytes # Blast Cells # WBC Morphology Hypersegmented Neuts Hyposegmented Neuts Hypogranular Neuts Smudge Cells Toxic Granulation Toxic Vacuolation Dohle Bodies Pelger-Huet Anomaly Caroline Rods Platelet Estimate Clumped Platelets Plt Clumps, EDTA Large Platelets Giant Platelets Platelet Satelliting Plt Morphology Comment RBC Morphology Dimorphic RBCs Polychromasia Hypochromasia Poikilocytosis Anisocytosis Microcytosis Macrocytosis Spherocytes Pappenheimer Bodies Sickle Cells Target Cells Tear Drop Cells Ovalocytes Helmet Cells [place] Bodies Hughes Rings Roger Cells Bite Cells Crenated Cell Elliptocytes Acanthocytes (Spur) Rouleaux Hemoglobin C Crystals Schistocytes Malaria parasites Bryson Bodies Hem Pathologist Commnt Sodium Potassium Chloride Carbon Dioxide Anion Gap BUN Creatinine Estimated GFR BUN/Creatinine Ratio Glucose POC Glucose 124 H 137 H Calcium Total Bilirubin AST ALT Alkaline Phosphatase Total Protein Albumin Albumin/Globulin Ratio Assessment and Plan Intracranial hemorrhage status post craniotomy: Fall precautions, helmet on when out of bed, bed alarm. We'll continue to assess patient as she is a high risk for future falls. May need to utilize other restraints until she is able to control her impulses. Monitor scalp for any signs of changes or infection. Will attempt to get suture/staple removal orders from [facility]. Hypertension: Continue medication adjustments as needed for normotension, will look to d/c metoprolol and monitor BP closely Hyperlipidemia: continue statin GERD: Continue Protonix, monitor Constipation: continue bowel meds and monitor for normal bowel regimen Seizure: Continue seizure precaution, monitor frequently for changes in neuro status, continue Keppra Z73.6 ADL dysfunction: OT will work on improving ability to perform ADLs (including assistive devices) to increase independence and decrease caregiver burden and improve functional transfers and mobility training. R26.2 Difficulty walking: PT will work on gait training and proper use of assistive devices and advance as appropriate to use of stairs and outside ambulation on uneven surfaces. R26.81 Unsteadiness on feet: PT will work on improving static and dynamic sitting and standing balance as well as proper use of assistive devices to decrease risk of falls. R26.89 Abnormality of gait: PT will work to improve safety and efficiency of gait through neuromotor training and gait training along with instruction on proper use of assistive devices. M62.81 Muscle weakness: PT & OT will work on strengthening exercises to improve functional strength including mixture of closed and open kinetic chain exercises. R53.81 Debility: PT & OT will work on improving overall functional status to improve participation with ADLs, mobility and social involvement. R53.83 Fatigue: PT & OT will work on improving endurance through aerobic exe rcises and therapeutic activity while monitoring patients tolerance for activity and vital signs as needed. DVT ppx: Heparin twice a day Pain: Continue physical modalities in therapy and pain medications as needed to achieve functional pain control. Sleep: Monitor and address as needed. Bowel: Monitor and address as needed. Appetite: Monitor and address as needed. Discharge planning: Pending therapy progress and care plan meeting. Will continue discussion with therapy team, SW, patient and family. Will likely need 10-14 days total to ensure safe discharge home with intermittent family supervision. Restrictions/ Precautions: Falls, cranial flap replaced (helmet on when out of bed), seizure WB status: FWB Functional Hx: ADLs: Independent Cognition: Independent Mobility: No AD Barriers to Discharge: Decreased mobility and ability to perform self care, balance deficits, weakness, and impulsivity, decreased awareness of safety Estimated Length of Stay: 10-14 days Discharge Destination: Home with family and intermittent supervision
[2019-06-24] MEDS: LOPRESSOR PO SCH ×2 (10:15→21:39)
[2019-06-24] MEDS: HEPARIN SUB-Q SCH ×2 (11:08→21:40)
[2019-06-24] MEDS: KEPPRA PO SCH ×2 (11:14→21:38)
[2019-06-24] MEDS: PROTONIX PO SCH (11:14)
--- NOTE | 2019-06-24 21:40 | IRU Plan of Care ---
Interdisciplinary Plan of Care - IP IRU INTERDISCIPLINARY PLAN: [facility] Inpatient Rehab Unit Plan of Care IRU Interdisciplinary Care Plan Start: 06/22/19 20:02 Freq: Admission then PRN Status: Active Protocol: Document 06/24/19 16:47 TH (Rec: 06/24/19 16:57 TH [id number]) Interdisciplinary Problem List Interdisciplinary Problem List Interdisciplinary Problem List Impaired Bathing/Grooming, Query Text:Answers will Trigger Problems Impaired Dressing,Impaired and Outcomes on Worklist. Mobility,Impaired Transfers, Impaired Toileting,Discharge Concerns,Impaired Home Management,Impaired Safety, Medications Education IRU Interdisciplinary Care Plan Therapy Services Therapy Services Will Include: Physical Therapy,Occupational Query Text:Patient will be seen for a Therapy,Speech Therapy minimum of 3 hours of daily therapy 5 out of 7 days a week. Therapy intensity may be adjusted within a 7 consecutive day period to effectively serve the individual needs of the patient. Treatment Frequency/Intensity/Duration Treatment Frequency 5 days per week Treatment Intensity 3 hours per day Treatment Duration 7-14 days Problem Area: Eating/Swallowing Eating/Swallowing Outcomes Eating/Swallowing Interventions Problem Area: Bathing/Grooming Bathing/Grooming Outcomes Improve [place] w/ Grooming,Improve [place] w/ Bathing Bathing/Grooming Interventions ADL Training,Use of Assistive Devices,Therapeutic Exercise, Therapeutic Activity, Neuromuscular Re-Education, Balance Work,Activity Tolerance Work,Patient/ Caregiver Education Problem Area: Dressing Dressing Outcomes Improve [place] w/ UB Dressing,Improve [place] w/ LB Dressing Dressing Interventions ADL Training,Use of Assistive Devices,Neuromuscular Re- Education,Therapeutic Exercise ,Balance Work,Modalities, Patient/Caregiver Education Problem Area: Mobility Mobility Outcomes [place] w/ Bed Mobility,Improve [place] w/ Ambulation Mobility Interventions Therapeutic Exercise, Neuromuscular Re-Ed.,Activity Tolerance Work,Use of Assistive Devices,Patient/ Caregiver Education,Bed Mobility Work,Gait Training,W/ C Mobility Work Problem Area: Transfers Transfers Outcomes [place] w/ Toilet Transfers,Improve [place] w/ Tub/Shower Transfers Transfers Interventions Transfer Training,Therapeutic Exercise,Neuromuscular Re- Education,Visual/Perceptual Training,Activity Tolerance Work,Modalities,Use of Assistive Devices,Patient/ Caregiver Education Problem Area: Bowel/Bladder Managment Bowel/Bladder Outcomes Bowel/Bladder Interventions Problem Area: Toileting Toileting Outcomes [place] w/ Toileting Toileting Interventions ADL Training,Balance Work,Use of Assistive Devices,Patient/ Caregiver Education Problem Area: Nutrition Nutrition Outcomes Nutrition Interventions Problem Area: Comprehension Comprehension Outcomes Comprehension Interventions Problem Area: Expression Expression Outcomes Expression Interventions Problem Area: Problem Solving Problem Solving Outcomes Improve Problem Solving Problem Solving Interventions Cognitive Training,Patient/ Caregiver Education Problem Area: Memory Memory Outcomes Use Memory Aids Memory Interventions Cognitive Training,Patient/ Caregiver Education Problem Area: Pain Management Pain Management Outcomes Pain Management Interventions Problem Area: Knowledge Deficits Knowledge Deficits Outcomes Verbalize Precautions, Verbalize Understanding of S/S of Stroke Knowledge Deficits Interventions Safety Education Problem Area: Skin/Tissue Integrity Skin/Tissue Integrity Outcomes Skin/Tissue Integrity Interventions Problem Area: Social Interaction Social Interaction Outcomes Social Interaction Interventions Problem Area: Adjustment to Disability Adjustment to Disability Outcomes Adjustment to Disability Interventions Problem Area: Discharge Concerns Discharge Concerns Outcomes Discharge w/ Necessary Equipment,Have Home Health/ Outpatient Services Discharge Concerns Interventions Discharge Planning,Family/ Caregiver Conference,Family/ Caregiver Training Problem Area: Community Reintegration Community Reintegration Outcomes Community Reintegration Interventions Problem Area: Home Management Home Management Outcomes Improve [place] w/ Home Management Home Management Interventions Meal Preparation,Clothing Care ,Activity Tolerance Work, Patient/Caregiver Education Problem Area: Safety Safety Outcomes Provide Safe Environment, Perform Selfcare Safely, Demonstrate Good Safety w/ Transfers/Mobility Safety Interventions Identify Fall Risk,[place] Pt. to Environment,Reduce Environmental Hazards,Neuro Check Assessment,Implement Mechanical Devices, i.e. Chair Alarm (Post Fall Update),Re- Educate Patient/Caregiver for Safety (Post Fall Update) Problem Area: Medication Education Medication Education Outcomes Patient/Caregiver will Verbalize Understanding of Medications Medication Education Interventions Explain Administration/Side Effects/Interactions Problem Area: Diabetes Education Diabetes Education Outcomes Diabetes Education Interventions Problem Area: Oxygenation Oxygenation Outcomes Oxygenation Interventions Problem Area: Cardiovascular Cardiovascular Outcomes Cardiovascular Interventions Physician Only Medical Prognosis and Rehabilitation Good medical prognosis and rehab potential. Safety awareness has improved since last admission. Will continue to work towards ability to transition home with intermittent supervision and improve upon her safe mobility. Potential (Completed by Physician) This plan of care has been developed based on the findings from the pre- admission assessment, post admission physician evaluation, information gathered from the assessments from all therapy disciplines and other pertinent clinicians. The plan of care has been reviewed and discussed in collaboration with the interdisciplinary team. The plan of care will be reviewed and updated at least weekly.
[2019-06-24] MEDS: PRAVACHOL PO SCH (21:45)
--- NOTE | 2019-06-25 09:02 | Progress Note ---
Subjective Date of service: 06/25/19 Principal diagnosis: ICH Interval history: 73 yo female who underwent excision of meningioma and was discharged home in good condition with the later evolution of weakness and decline. She was evaluated and found to have an ICH and taken for emergent craniotomy. Flap was out when she was last here, helmet should be on when OOB. During her last stay with us she was returned to the outside hospital for a CSF leak from the right nostril. She also had an elevated white count along with a fever. Once returned to the outside hospital she underwent antibiotic treatment as well as surgical repair of the cranial defect which is now bandaged. She underwent therapy at OSH and still needs further therapy in order to return to prior level of functioning as well as to be able to return home safely. Once she was medically stable she was transferred for further rehab. Have placed a bed alarm on. Have discussed with nursing that she needs to be monitored closely. I have also discussed with the patient that she needs to avoid getting out of the bed without assistance. Patient is participating in therapy and making reasonable progress. Taking rest breaks as needed. No reports of getting out of bed without assistance. Hopefully the decreased impulsiveness continues. BP improving. +BM. Denies MURRY, nasal drainage, pain, palpitations, dyspnea, cough, N/V or joint pain. Cooking with OT today. Discussed staple removal with ANDRIY, order entered. Follow up after discharge. All records, vitals, labs and medications were reviewed. No other issues per patient, nursing or therapy. Objective - Exam Narrative Exam: MUSCULOSKELETAL SPECIALTY EXAM CONSTITUTIONAL: Well developed, well nourished, appropriately groomed HEENT: Right frontal crani flap replaced, suture line bandaged, healing well without drainage or signs of infection. No signs of CSF leak. EOMI. Hearing intact to soft voice RESPIRATORY: Clear to auscultation bilaterally, no increased work of breathing CARDIOVASCULAR: Regular Rate/ Rhythm, no swelling, edema or tenderness in BUE or BLE. All ext remities warm. GI: + bowel sounds, soft, NTTP, nondistended. INTEGUMENTARY: Except for scalp as noted above, Normal, no lesion, rash, masses or bruising noted in extremities. MUSCULOSKELETAL: BUE and BLE normal without defect, crepitus, subluxation, effusion, arthritic changes or TTP. BUE 4/5, good ROM, with normal tone. BLE 4/5 good ROM, with normal tone NEURO: CN 2-12 grossly intact. Sensation intact in all extremities. No tremor noted in 4 extremities. POSTURE and GAIT: Sitting posture good. Balance appears reasonable with LOB when challenged, only slight when not challenged. Observed with therapy, gait is slowed and LOB during shorter distances noted. PSYCH: Alert, orientated x3, affect appears normal. Insight appears slightly impaired. Intermittent confusion and impulsiveness, but better than previous admission. - Constitutional Vitals: Vital Signs - 12hr 06/24/19 06/24/19 06/24/19 21:39 22:10 22:12 Temperature 36.6 C Pulse Rate 72 30 L 99 H Respiratory 20 20 Rate Blood Pressure 127/77 Blood Pressure 120/77 [Right] O2 Sat by Pulse 73 L Oximetry 06/24/19 06/25/19 06/25/19 22:17 05:17 07:24 Temperature 36.7 C 37.1 C Pulse Rate 70 66 Respiratory 22 18 Rate Blood Pressure 112/66 Blood Pressure 120/77 [Right] O2 Sat by Pulse 96 99 97 Oximetry 06/25/19 07:25 Temperature Pulse Rate 68 Respiratory Rate Blood Pressure Blood Pressure [Right] O2 Sat by Pulse 99 Oximetry - Allied health notes Allied health notes reviewed: nursing, PT, ST, OT FIMS assessment as documented by PT/OT/ST: Grooming Patient cleans teeth/dentures: Yes Patient cl[place]/brushes hair: Yes Patient washes, rinses and Yes dries face: Patient washes, rinses and Yes dries hands: Patient applies make-up: No Patient performs (no make-up/ / (100%) shaving): Grooming FIM Score 5. Supervision ([place] applies toothpaste or opens containers.) Toileting Toileting Device Commode over Toilet Patient able to: Adjust clothes before,Clean self,Adjust clothes after Patient able to perform: 3/3 (100%) Toileting FIM Score 4. Minimal Assistance (Patient = 75% or more. Needs touching.) Social interaction/Memory/Problem solving Social Interaction FIM Score 5. Supervision (Needs supv. <10%. Needs encouragement to participate.) Memory FIM Score 5. Supervision (Needs cueing <10%, stressful/ unfamiliar situations.) Problem Solving FIM Score 4. Minimal Assistance (Solves routine problems 75-90%.) Transfers Mode of Locomotion: Wheelchair Bed/Chair/Wheelchair Transfers 4. Minimal Assistance (Patient = 75% or more. FIM Score Needs touching.) Toilet Transfers FIM Score 4. Minimal Assistance (Patient = 75% or more. Needs touching.) Patient transferred to: Shower Shower Transfers FIM Score 4. Minimal Assistance (Patient = 75% or more. Needs touching.) Locomotion- Stairs Device used on Stairs Handrail/s Number of Stairs Ascended/ 12 Descended Patient used handrail/support: Yes Stairs FIM Score 4. Minimal Assistance (Patient = 75% or more, touching. 12-14 stairs.) Locomotion- walk/wheelchair Most Frequent Mode of Wheelchair Locomotion: Ambulation Distance 50 Walking FIM Score 4. Minimal Assistance (Patient = 75% or more. Minimum of 150 ft.) Wheelchair Propulsion Distance 230 Wheelchair FIM Score 5. Supervision (Minimum 150 ft. supv./cues or 50 ft. independently.) Eating Eating FIM Score 5. Supervision/Set-Up (Needs help w/ containers, cutting meat, etc.) Dressing-Upper body Patient retrieves clothing No items: Patient applies/removes UE n/a prosthesis or orthosis: Upper Body Dressing FIM Score 5. Supv./Set-Up ([place] sets out clothes or applies pros./orth.) Dressing-lower body Patient retrieves clothing No items: Patient applies/removes LE n/a prosthesis or orthosis: Lower Body Dressing FIM Score 5. Supv./Set-Up ([place] sets out clothes or applies pros./orth.) - Labs CBC & Chem 7: 06/23/19 06:48 06/23/19 06:48 Labs: Laboratory Results - last 72 hr 06/22/19 06/23/19 06/23/19 21:37 06:48 06:48 WBC 8.5 RBC 3.29 L Hgb 10.2 Hct 30.1 L MCV 91 MCH 31 MCHC 34 RDW 17.2 H Plt Count 552 H Add Manual Diff Complete Total Counted 100 Seg Neuts % (Manual) 60.0 Band Neutrophils % 2.0 Lymphocytes % (Manual) 27.0 Reactive Lymphs % (Man) 0 Monocytes % (Manual) 8.0 H Eosinophils % (Manual) 3.0 Basophils % (Manual) 0 Metamyelocytes % 0 Myelocytes % 0 Promyelocytes % 0 Blast Cells % 0 Nucleated RBC % Not Reportable Seg Neutrophils # Man 5.1 Band Neutrophils # 0.2 Lymphocytes # (Manual) 2.3 Abs React Lymphs (Man) 0.0 Monocytes # (Manual) 0.7 Eosinophils # (Manual) 0.3 Basophils # (Manual) 0.0 Metamyelocytes # 0.0 Myelocytes # 0.0 Promyelocytes # 0.0 Blast Cells # 0.0 WBC Morphology Not Reportable Hypersegmented Neuts Not Reportable Hyposegmented Neuts Not Reportable Hypogranular Neuts Not Reportable Smudge Cells Not Reportable Toxic Granulation Not Reportable Toxic Vacuolation Not Reportable Dohle Bodies Not Reportable Pelger-Huet Anomaly Not Reportable Caroline Rods Not Reportable Platelet Estimate Consistent w auto Clumped Platelets Rare Plt Clumps, EDTA Not Reportable Large Platelets Not Reportable Giant Platelets Not Reportable Platelet Satelliting Not Reportable Plt Morphology Comment Not Reportable RBC Morphology Not Reportable Dimorphic RBCs Not Reportable Polychromasia Not Reportable Hypochromasia Not Reportable Poikilocytosis Not Reportable Anisocytosis 1+ Microcytosis Not Reportable Macrocytosis Few Spherocytes Not Reportable Pappenheimer Bodies Not Reportable Sickle Cells Not Reportable Target Cells Not Reportable Tear Drop Cells Not Reportable Ovalocytes Not Reportable Helmet Cells Not Reportable [place] Bodies Not Reportable [place] Rings Not Reportable Roger Cells Not Reportable Bite Cells Not Reportable Crenated Cell Not Reportable Elliptocytes Not Reportable Acanthocytes (Spur) Not Reportable Rouleaux Not Reportable Hemoglobin C Crystals Not Reportable Schistocytes Not Reportable Malaria parasites Not Reportable [place]son Bodies Not Reportable Hem Pathologist Commnt No Sodium 145 Potassium 4.0 Chloride 105.4 Carbon Dioxide 29 Anion Gap 15 BUN 8 Creatinine 0.8 Estimated GFR > 60 BUN/Creatinine Ratio 10 Glucose 125 H POC Glucose 102 Calcium 9.1 Total Bilirubin 0.20 AST 16 ALT 11 Alkaline Phosphatase 116 Total Protein 6.2 L Albumin 3.3 L Albumin/Globulin Ratio 1.1 06/23/19 06/23/19 06/23/19 07:32 11:15 16:38 WBC RBC Hgb Hct MCV MCH MCHC RDW Plt Count Add Manual Diff Total Counted Seg Neuts % (Manual) Band Neutrophils % Lymphocytes % (Manual) Reactive Lymphs % (Man) Monocytes % (Manual) Eosinophils % (Manual) Basophils % (Manual) Metamyelocytes % Myelocytes % Promyelocytes % Blast Cells % Nucleated RBC % Seg Neutrophils # Man Band Neutrophils # Lymphocytes # (Manual) Abs React Lymphs (Man) Monocytes # (Manual) Eosinophils # (Manual) Basophils # (Manual) Metamyelocytes # Myelocytes # Promyelocytes # Blast Cells # WBC Morphology Hypersegmented Neuts Hyposegmented Neuts Hypogranular Neuts Smudge Cells Toxic Granulation Toxic Vacuolation Dohle Bodies Pelger-Huet Anomaly Caroline Rods Platelet Estimate Clumped Platelets Plt Clumps, EDTA Large Platelets Giant Platelets Platelet Satelliting Plt Morphology Comment RBC Morphology Dimorphic RBCs Polychromasia Hypochromasia Poikilocytosis Anisocytosis Microcytosis Macrocytosis Spherocytes Pappenheimer Bodies Sickle Cells Target Cells Tear Drop Cells Ovalocytes Helmet Cells [place] Bodies [place] Rings [place] Cells Bite Cells Crenated Cell Elliptocytes Acanthocytes ([place]) Rouleaux Hemoglobin C Crystals Schistocytes Malaria parasites Bryson Bodies Hem Pathologist Commnt Sodium Potassium Chloride Carbon Dioxide Anion Gap BUN Creatinine Estimated GFR BUN/Creatinine Ratio Glucose POC Glucose 121 H 155 H 95 Calcium Total Bilirubin AST ALT Alkaline Phosphatase Total Protein Albumin Albumin/Globulin Ratio 06/23/19 06/24/19 06/24/19 21:51 07:42 11:49 WBC RBC Hgb Hct MCV MCH MCHC RDW Plt Count Add Manual Diff Total Counted Seg Neuts % (Manual) Band Neutrophils % Lymphocytes % (Manual) Reactive Lymphs % (Man) Monocytes % (Manual) Eosinophils % (Manual) Basophils % (Manual) Metamyelocytes % Myelocytes % Promyelocytes % Blast Cells % Nucleated RBC % Seg Neutrophils # Man Band Neutrophils # Lymphocytes # (Manual) Abs React Lymphs (Man) Monocytes # (Manual) Eosinophils # (Manual) Basophils # (Manual) Metamyelocytes # Myelocytes # Promyelocytes # Blast Cells # WBC Morphology Hypersegmented Neuts Hyposegmented Neuts Hypogranular Neuts Smudge Cells Toxic Granulation Toxic Vacuolation Dohle Bodies Pelger-Huet Anomaly Caroline Rods Platelet Estimate Clumped Platelets Plt Clumps, EDTA Large Platelets Giant Platelets Platelet Satelliting Plt Morphology Comment RBC Morphology Dimorphic RBCs Polychromasia Hypochromasia Poikilocytosis Anisocytosis Microcytosis Macrocytosis Spherocytes Pappenheimer Bodies Sickle Cells Target Cells Tear Drop Cells Ovalocytes Helmet Cells [place] Bodies [place] Rings [place] Cells Bite Cells Crenated Cell Elliptocytes Acanthocytes (Spur) Rouleaux Hemoglobin C Crystals Schistocytes Malaria parasites Bryson Bodies Hem Pathologist Commnt Sodium Potassium Chloride Carbon Dioxide Anion Gap BUN Creatinine Estimated GFR BUN/Creatinine Ratio Glucose POC Glucose 124 H 137 H 140 H Calcium Total Bilirubin AST ALT Alkaline Phosphatase Total Protein Albumin Albumin/Globulin Ratio 06/24/19 17:03 WBC RBC Hgb Hct MCV MCH MCHC RDW Plt Count Add Manual Diff Total Counted Seg Neuts % (Manual) Band Neutrophils % Lymphocytes % (Manual) Reactive Lymphs % (Man) Monocytes % (Manual) Eosinophils % (Manual) Basophils % (Manual) Metamyelocytes % Myelocytes % Promyelocytes % Blast Cells % Nucleated RBC % Seg Neutrophils # Man Band Neutrophils # Lymphocytes # (Manual) Abs React Lymphs (Man) Monocytes # (Manual) Eosinophils # (Manual) Basophils # (Manual) Metamyelocytes # Myelocytes # Promyelocytes # Blast Cells # WBC Morphology Hypersegmented Neuts Hyposegmented Neuts Hypogranular Neuts Smudge Cells Toxic Granulation Toxic Vacuolation Dohle Bodies Pelger-Huet Anomaly Caroline Rods Platelet Estimate Clumped Platelets Plt Clumps, EDTA Large Platelets Giant Platelets Platelet Satelliting Plt Morphology Comment RBC Morphology Dimorphic RBCs Polychromasia Hypochromasia Poikilocytosis Anisocytosis Microcytosis Macrocytosis Spherocytes Pappenheimer Bodies Sickle Cells Target Cells Tear Drop Cells Ovalocytes Helmet Cells [place] Bodies [place] Rings [place] Cells Bite Cells Crenated Cell Elliptocytes Acanthocytes (Spur) Rouleaux Hemoglobin C Crystals Schistocytes Malaria parasites Bryson Bodies Hem Pathologist Commnt Sodium Potassium Chloride Carbon Dioxide Anion Gap BUN Creatinine Estimated GFR BUN/Creatinine Ratio Glucose POC Glucose 88 Calcium Total Bilirubin AST ALT Alkaline Phosphatase Total Protein Albumin Albumin/Globulin Ratio Assessment and Plan Intracranial hemorrhage status post craniotomy: Fall precautions, helmet on when out of bed, bed alarm. We'll continue to assess patient as she is a high risk for future falls. May need to utilize other restraints until she is able to control her impulses. Monitor scalp for any signs of changes or infection, healoing well. Staple removal next week. Hypertension: Continue medication adjustments as needed for normotension Hyperlipidemia: continue statin GERD: Continue Protonix, monitor Constipation: continue bowel meds and monitor for normal bowel regimen Seizure: Continue seizure precaution, monitor frequently for changes in neuro status, continue Keppra Z73.6 ADL dysfunction: OT will work on improving ability to perform ADLs (including assistive devices) to increase independence and decrease caregiver burden and improve functional transfers and mobility training. R26.2 Difficulty walking: PT will work on gait training and proper use of assistive devices and advance as appropriate to use of stairs and outside ambulation on uneven surfaces. R26.81 Unsteadiness on feet: PT will work on improving static and dynamic sitting and standing balance as well as proper use of assistive devices to decrease risk of falls. R26.89 Abnormality of gait: PT will work to improve safety and efficiency of gait through neuromotor training and gait training along with instruction on proper use of assistive devices. M62.81 Muscle weakness: PT & OT will work on strengthening exercises to improve functional strength including mixture of closed and open kinetic chain exercises. R53.81 Debility: PT & OT will work on improving overall functional status to improve participation with ADLs, mobility and social involvement. R53.83 Fatigue: PT & OT will work on improving endurance through aerobic exercises and therapeutic activity while monitoring patients tolerance for activity and vital signs as needed. DVT ppx: Heparin twice a day Pain: Continue physical modalities in therapy and pain medications as needed to achieve functional pain control. Sleep: Monitor and address as needed. Bowel: Monitor and address as needed. Appetite: Monitor and address as needed. Discharge planning: Pending therapy progress and care plan meeting. Will continue discussion with therapy team, SW, patient and family. Will likely need 10-14 days total to ensure safe discharge home with intermittent family supervision. Restrictions/ Precautions: Falls, cranial flap replaced (helmet on when out of bed), seizure WB status: FWB Functional Hx: ADLs: Independent Cognition: Independent Mobility: No AD Barriers to Discharge: Decreased mobility and ability to perform self care, balance deficits, weakness, and impulsivity, decreased awareness of safety Estimated Length of Stay: 10-14 days Discharge Destination: Home with family and intermittent supervision
[2019-06-25] MEDS: KEPPRA PO SCH ×2 (09:55→22:17)
[2019-06-25] MEDS: PROTONIX PO SCH (09:55)
[2019-06-25] MEDS: LOPRESSOR PO SCH ×2 (09:56→22:16)
[2019-06-25] MEDS: HEPARIN SUB-Q SCH ×2 (09:59→22:20)
[2019-06-25] MEDS: PRAVACHOL PO SCH (22:17)
[2019-06-26] MEDS: KEPPRA PO SCH ×2 (12:30→21:24)
[2019-06-26] MEDS: LOPRESSOR PO SCH ×2 (12:30→21:24)
[2019-06-26] MEDS: PROTONIX PO SCH (12:35)
[2019-06-26] MEDS: HEPARIN SUB-Q SCH ×2 (12:51→21:25)
[2019-06-26] MEDS: PRAVACHOL PO SCH (21:24)
[2019-06-27] MEDS: HEPARIN SUB-Q SCH ×2 (09:17→21:23)
[2019-06-27] MEDS: LOPRESSOR PO SCH ×2 (09:19→21:24)
[2019-06-27] MEDS: KEPPRA PO SCH ×2 (09:20→21:23)
[2019-06-27] MEDS: PROTONIX PO SCH (09:20)
[2019-06-27] MEDS: PRAVACHOL PO SCH (21:25)
[2019-06-28 06:59] LABS: Hematocrit 31.1 % (30.3-42.9); Hemoglobin 10.4 gm/dl (10.1-14.3); Mean Corpuscular HGB Conc 34 % (30-34); Mean Corpuscular Volume 91 fl (79-97); Platelet Count 400 K/mm3 (140-440); Red Blood Count 3.41 M/mm3 (3.65-5.03); Red Cell Distribution Width 17.1 % (13.2-15.2)
[2019-06-28 08:18] LABS: BUN/Creatinine Ratio 10; Blood Urea Nitrogen 9 mg/dL (7-17); Calcium 8.8 mg/dL (8.4-10.2); Hemolysis Index 9
[2019-06-28] MEDS: LOPRESSOR PO SCH ×2 (09:13→21:46)
[2019-06-28] MEDS: KEPPRA PO SCH ×2 (09:13→21:47)
[2019-06-28] MEDS: PROTONIX PO SCH (09:13)
[2019-06-28] MEDS: HEPARIN SUB-Q SCH (09:13)
[2019-06-28] MEDS ORDERED: MAGNESIUM SULFATE 2GM/50ML 2 GM/50 ML BAG IV ONE (14:00)
--- NOTE | 2019-06-28 15:54 | Progress Note ---
Subjective Date of service: 06/28/19 Principal diagnosis: ICH Interval history: 73 yo female who underwent excision of meningioma and was discharged home in good condition with the later evolution of weakness and decline. She was evaluated and found to have an ICH and taken for emergent craniotomy. Flap was out when she was last here, helmet should be on when OOB. During her last stay with us she was returned to the outside hospital for a CSF leak from the right nostril. She also had an elevated white count along with a fever. Once returned to the outside hospital she underwent antibiotic treatment as well as surgical repair of the cranial defect which is now bandaged. She underwent therapy at OSH and still needs further therapy in order to return to prior level of functioning as well as to be able to return home safely. Once she was medically stable she was transferred for further rehab. Have placed a bed alarm on. Have discussed with nursing that she needs to be monitored closely. I have also discussed with the patient that she needs to avoid getting out of the bed without assistance. Patient is participating in therapy and making reasonable progress. Taking rest breaks as needed. No reports of getting out of bed without assistance. K and Mg low, replace. BP stable. +BM. Denies MURRY, nasal drainage, pain, palpitations, dyspnea, cough, N/V or joint pain. Staple removal today. Follow up after discharge. All records, vitals, labs and medications were reviewed. No other issues per patient, nursing or therapy. Objective - Exam Narrative Exam: MUSCULOSKELETAL SPECIALTY EXAM CONSTITUTIONAL: Well developed, well nourished, appropriately groomed HEENT: Right frontal crani flap replaced, suture line bandaged, healing well without drainage or signs of infection. No signs of CSF leak. EOMI. Hearing intact to soft voice RESPIRATORY: Clear to auscultation bilaterally, no increased work of breathing CARDIOVASCULAR: Regular Rate/ Rhythm, no swelling, edema or tenderness in BUE or BLE. All extremities warm. GI: + bowel sounds, soft, NTTP, nondistended. INTEGUMENTARY: Except for scalp as noted above, Normal, no lesion, rash, masses or bruising noted in extremities. MUSCULOSKELETAL: BUE and BLE normal without defect, crepitus, subluxation, effusion, arthritic changes or TTP. BUE 4/5, good ROM, with normal tone. BLE 4/5 good ROM, with normal tone NEURO: CN 2-12 grossly intact. Sensation intact in all extremities. No tremor noted in 4 extremities. POSTURE and GAIT: Sitting posture good. Balance appears reasonable with LOB when challenged, only slight when not challenged. Observed with therapy, gait is slowed and LOB during shorter distances noted. PSYCH: Alert, orientated x3, affect appears normal. Insight appears improved. Intermittent confusion but not seeing much impulsiveness. Difficulty with sequencing. - Constitutional Vitals: Vital Signs - 12hr 06/28/19 06/28/19 08:21 12:00 Temperature 36.4 C L Pulse Rate 66 Respiratory 99 H Rate Blood Pressure 117/69 [Right] O2 Sat by Pulse 97 Oximetry - Allied health notes Allied health notes reviewed: nursing, PT, ST, OT FIMS assessment as documented by PT/OT/ST: Grooming Patient cleans teeth/dentures: Yes Patient cl[place]/brushes hair: Yes Patient washes, rinses and Yes dries face: Patient washes, rinses and Yes dries hands: Patient applies make-up: No Patient performs (no make-up/ / (100%) shaving): Grooming FIM Score 5. Supervision ([place] applies toothpaste or opens containers.) Toileting Toileting Device Commode over Toilet Patient able to: Adjust clothes before,Clean self,Adjust clothes after Patient able to perform: 3/3 (100%) Toileting FIM Score 4. Minimal Assistance (Patient = 75% or more. Needs touching.) Social interaction/Memory/Problem solving Social Interaction FIM Score 7. Complete [place] (Interacts appropriately. Controls temper.) Memory FIM Score 5. Supervision (Needs cueing <10%, stressful/ unfamiliar situations.) Problem Solving FIM Score 5. Supervision (Needs cueing <10% to solve routine problems.) Transfers Mode of Locomotion: Wheelchair Bed/Chair/Wheelchair Transfers 5. Supervision (Needs supv. or set-up for FIM Score sliding board, foot rests.) Toilet Transfers FIM Score 4. Minimal Assistance (Patient = 75% or more. Needs touching.) Patient transferred to: Shower Shower Transfers FIM Score 4. Minimal Assistance (Patient = 75% or more. Needs touching.) Locomotion- Stairs Device used on Stairs Handrail/s Number of Stairs Ascended/ 18 Descended Patient used handrail/support: Yes Stairs FIM Score 4. Minimal Assistance (Patient = 75% or more, touching. 12-14 stairs.) Locomotion- walk/wheelchair Most Frequent Mode of Walking Locomotion: Ambulation Distance 450 Walking FIM Score 5. Supervision (Minimum 150 ft. supv./cues or 50 ft. independently.) Wheelchair Propulsion Distance 230 Wheelchair FIM Score 5. Supervision (Minimum 150 ft. supv./cues or 50 ft. independently.) Eating Eating FIM Score 5. Supervision/Set-Up (Needs help w/ conta iners, cutting meat, etc.) Dressing-Upper body Patient retrieves clothing No items: Patient applies/removes UE n/a prosthesis or orthosis: Upper Body Dressing FIM Score 5. Supv./Set-Up ([place] sets out clothes or applies pros./orth.) Dressing-lower body Lower Body Dressing Device [place] Patient retrieves clothing No items: Patient applies/removes LE n/a prosthesis or orthosis: Lower Body Dressing FIM Score 6. Modified [place] (Needs equipment, velcro or pros./orth.) - Labs CBC & Chem 7: 06/28/19 06:26 06/28/19 06:26 Labs: Laboratory Results - last 72 hr 06/28/19 06/28/19 06/28/19 06:26 06:26 06:26 WBC 9.8 RBC 3.41 L Hgb 10.4 Hct 31.1 MCV 91 MCH 31 MCHC 34 RDW 17.1 H Plt Count 400 Sodium 145 Potassium 3.5 L Chloride 106.1 Carbon Dioxide 26 Anion Gap 16 BUN 9 Creatinine 0.9 Estimated GFR > 60 BUN/Creatinine Ratio 10 Glucose 118 H Calcium 8.8 Magnesium 1.50 L Assessment and Plan Intracranial hemorrhage status post craniotomy: Fall precautions, helmet on when out of bed, bed alarm. We'll continue to assess patient as she is a high risk for future falls. Monitor scalp for any signs of changes or infection, healing well. Staple removal today. Hypertension: Continue medication adjustments as needed for normotension Hyperlipidemia: continue statin GERD: Continue Protonix, monitor Constipation: continue bowel meds and monitor for normal bowel regimen Seizure: Continue seizure precaution, monitor frequently for changes in neuro status, continue Keppra Z73.6 ADL dysfunction: OT will work on improving ability to perform ADLs (including assistive devices) to increase independence and decrease caregiver b urden and improve functional transfers and mobility training. R26.2 Difficulty walking: PT will work on gait training and proper use of assistive devices and advance as appropriate to use of stairs and outside ambulation on uneven surfaces. R26.81 Unsteadiness on feet: PT will work on improving static and dynamic sitting and standing balance as well as proper use of assistive devices to decrease risk of falls. R26.89 Abnormality of gait: PT will work to improve safety and efficiency of gait through neuromotor training and gait training along with instruction on proper use of assistive devices. M62.81 Muscle weakness: PT & OT will work on strengthening exercises to improve functional strength including mixture of closed and open kinetic chain exercises. R53.81 Debility: PT & OT will work on improving overall functional status to improve participation with ADLs, mobility and social involvement. R53.83 Fatigue: PT & OT will work on improving endurance through aerobic exercises and therapeutic activity while monitoring patients tolerance for activity and vital signs as needed. DVT ppx: Heparin twice a day Pain: Continue physical modalities in therapy and pain medications as needed to achieve functional pain control. Sleep: Monitor and address as needed. Bowel: Monitor and address as needed. Appetite: Monitor and address as needed. Discharge planning: Pending therapy progress and care plan meeting. Will continue discussion with therapy team, SW, patient and family. Will likely need 10-14 days total to ensure safe discharge home with intermittent family supervision. Restrictions/ Precautions: Falls, cranial flap replaced (helmet on when out of bed), seizure WB status: FWB Functional Hx: ADLs: Independent Cognition: Independent Mobility: No AD Barriers to Discharge: Decreased mobility and ability to perform self care, balance deficits, weakness, and impulsivity, decreased awareness of safety Estimated Length of Stay: 10-14 days Discharge Destination: Home with family and intermittent supervision
[2019-06-28] MEDS: KCL 10MEQ/100ML 10 MEQ/100 ML BAG IV SCH ×2 (16:00→21:49)
[2019-06-28] MEDS ORDERED: NACL 0.9% 500 ML 500 ML IV SCH (17:00)
[2019-06-28] MEDS: PRAVACHOL PO SCH (21:48)
[2019-06-28] MEDS: LOVENOX SUB-Q SCH (21:48)
[2019-06-29] MEDS: KEPPRA PO SCH ×2 (09:32→21:53)
[2019-06-29] MEDS: PROTONIX PO SCH (09:33)
[2019-06-29] MEDS: LOPRESSOR PO SCH ×2 (09:33→21:53)
--- NOTE | 2019-06-29 11:32 | Progress Note ---
Subjective Date of service: 06/29/19 Principal diagnosis: ICH Interval history: 73 yo female who underwent excision of meningioma and was discharged home in good condition with the later evolution of weakness and decline. She was evaluated and found to have an ICH and taken for emergent craniotomy. Flap was out when she was last here, helmet should be on when OOB. During her last stay with us she was returned to the outside hospital for a CSF leak from the right nostril. She also had an elevated white count along with a fever. Once returned to the outside hospital she underwent antibiotic treatment as well as surgical repair of the cranial defect which is now bandaged. She underwent therapy at OSH and still needs further therapy in order to return to prior level of functioning as well as to be able to return home safely. Once she was medically stable she was transferred for further rehab. Have placed a bed alarm on. Have discussed with nursing that she needs to be monitored closely. I have also discussed with the patient that she needs to avoid getting out of the bed without assistance. Patient is participating in therapy and making reasonable progress. Taking rest breaks as needed. No reports of getting out of bed without assistance. K and Mg replaced and stable. BP stable. +BM. Denies MURRY, nasal drainage, pain, palpitations, dyspnea, cough, N/V or joint pain. Follow up after discharge. All records, vitals, labs and medications were reviewed. No other issues per patient, nursing or therapy. Objective - Exam Narrative Exam: MUSCULOSKELETAL SPECIALTY EXAM CONSTITUTIONAL: Well developed, well nourished, appropriately groomed HEENT: Right frontal crani flap replaced, suture line healing well without drainage or signs of infection. No signs of CSF leak. EOMI. Hearing intact to soft voice RESPIRATORY: Clear to auscultation bilaterally, no increased work of breathing CARDIOVASCULAR: Regular Rate/ Rhythm, no swelling, edema or tenderness in BUE or BLE. All extremities warm. GI: + bowel sounds, soft, NTTP, nondistended. INTEGUMENTARY: Except for scalp as noted above, Normal, no lesion, rash, masses or bruising noted in extremities. MUSCULOSKELETAL: BUE and BLE normal without defect, crepitus, subluxation, effusion, arthritic changes or TTP. BUE 4/5, good ROM, with normal tone. BLE 4/5 good ROM, with normal tone NEURO: CN 2-12 grossly intact. Sensation intact in all extremities. No tremor noted in 4 extremities. POSTURE and GAIT: Sitting posture good. Balance appears reasonable with LOB when challenged, only slight when not challenged. Observed with therapy, gait is slowed and LOB during shorter distances noted. PSYCH: Alert, orientated x3, affect appears normal. Insight appears improved. Intermittent confusion but not seeing much impulsiveness. Difficulty with sequencing. - Constitutional Vitals: Vital Signs - 12hr 06/28/19 06/29/19 06/29/19 23:55 04:58 07:30 Temperature 37.1 C 36.6 C 36.7 C Pulse Rate 76 69 70 Respiratory 20 20 16 Rate Blood Pressure 126/66 102/64 117/70 O2 Sat by Pulse 99 97 96 Oximetry 06/29/19 09:33 Temperature Pulse Rate 67 Respiratory Rate Blood Pressure 117/70 O2 Sat by Pulse Oximetry - Allied health notes Allied health notes reviewed: nursing, PT, ST, OT FIMS assessment as documented by PT/OT/ST: Grooming Patient cleans teeth/dentures: Yes Patient cl[place]/brushes hair: Yes Patient washes, rinses and Yes dries face: Patient washes, rinses and Yes dries hands: Patient applies make-up: No Patient performs (no make-up/ 02/25 (100%) shaving): Grooming FIM Score 5. Supervision ([place] applies toothpaste or opens containers.) Toileting Toileting Device Commode over Toilet Patient able to: Adjust clothes before,Clean self,Adjust clothes after Patient able to perform: 3/3 (100%) Toileting FIM Score 4. Minimal Assistance (Patient = 75% or more. Needs touching.) Social interaction/Memory/Problem solving Social Interaction FIM Score 7. Complete [place] (Interacts appropriately. Controls temper.) Memory FIM Score 4. Minimal Assistance (Recognizes and remembers 75-90%.) Problem Solving FIM Score 4. Minimal Assistance (Solves routine problems 75-90%.) Transfers Mode of Locomotion: Wheelchair Bed/Chair/Wheelchair Transfers 5. Supervision (Needs supv. or set-up for FIM Score sliding board, foot rests.) Toilet Transfers FIM Score 4. Minimal Assistance (Patient = 75% or more. Needs touching.) Patient transferred to: Shower Shower Transfers FIM Score 4. Minimal Assistance (Patient = 75% or more. Needs touching.) Locomotion- Stairs Device used on Stairs Handrail/s Number of Stairs Ascended/ 18 Descended Patient used handrail/support: Yes Stairs FIM Score 4. Minimal Assistance (Patient = 75% or more, touching. 12-14 stairs.) Locomotion- walk/wheelchair Most Frequent Mode of Walking Locomotion: Ambulation Distance 450 Walking FIM Score 5. Supervision (Minimum 150 ft. supv./cues or 50 ft. independently.) Wheelchair Propulsion Distance 230 Wheelchair FIM Score 5. Supervision (Minimum 150 ft. supv./cues or 50 ft. independently.) Eating Eating FIM Score 5. Supervision/Set-Up (Needs help w/ containers, cutting meat, etc.) Dressing-Upper body Patient retrieves clothing No items: Patient applies/removes UE n/a prosthesis or orthosis: Upper Body Dressing FIM Score 5. Supv./Set-Up ([place] sets out clothes or applies pros./orth.) Dressing-lower body Lower Body Dressing Device [place] Patient retrieves clothing No items: Patient applies/removes LE n/a prosthesis or orthosis: Lower Body Dressing FIM Score 6. Modified [place] (Needs equipment, velcro or pros./orth.) - Labs CBC & Chem 7: 06/28/19 06:26 06/29/19 12:10 Labs: Laboratory Results - last 72 hr 06/28/19 06/28/19 06/28/19 06:26 06:26 06:26 WBC 9.8 RBC 3.41 L Hgb 10.4 Hct 31.1 MCV 91 MCH 31 MCHC 34 RDW 17.1 H Plt Count 400 Sodium 145 Potassium 3.5 L Chloride 106.1 Carbon Dioxide 26 Anion Gap 16 BUN 9 Creatinine 0.9 Estimated GFR > 60 BUN/Creatinine Ratio 10 Glucose 118 H POC Glucose Calcium 8.8 Magnesium 1.50 L 06/28/19 21:41 WBC RBC Hgb Hct MCV MCH MCHC RDW Plt Count Sodium Potassium Chloride Carbon Dioxide Anion Gap BUN Creatinine Estimated GFR BUN/Creatinine Ratio Glucose POC Glucose 119 H Calcium Magnesium Assessment and Plan Intracranial hemorrhage status post craniotomy: Fall precautions, helmet on when out of bed, bed alarm. We'll continue to assess patient as she is a high risk for future falls. Monitor scalp for any signs of changes or infection, healing well. [place] removed Hypertension: Continue medication adjustments as needed for normotension Hyperlipidemia: continue statin GERD: Continue Protonix, monitor Constipation: continue bowel meds and monitor for normal bowel regimen Seizure: Continue seizure precaution, monitor frequently for changes in neuro status, continue Keppra Z73.6 ADL dysfunction: OT will work on improving ability to perform ADLs (including assistive devices) to increase independence and decrease caregiver burden and improve functional transfers and mobility training. R26.2 Difficulty walking: PT will work on gait training and proper use of assistive devices and advance as appropriate to use of stairs and outside ambulation on uneven surfaces. R26.81 Unsteadiness on feet: PT will work on improving static and dynamic sitting and standing balance as well as proper use of assistive devices to decrease risk of falls. R26.89 Abnormality of gait: PT will work to improve safety and efficiency of gait through neuromotor training and gait training along with instruction on proper use of assistive devices. M62.81 Muscle weakness: PT & OT will work on strengthening exercises to improve functional strength including mixture of closed and open kinetic chain exercises. R53.81 Debility: PT & OT will work on improving overall functional status to improve participation with ADLs, mobility and social involvement. R53.83 Fatigue: PT & OT will work on improving endurance through aerobic exercises and therapeutic activity while monitoring patients tolerance for activity and vital signs as needed. DVT ppx: switch to lovenox Pain: Continue physical modalities in therapy and pain medications as needed to achieve functional pain control. Sleep: Monitor and address as needed. Bowel: Monitor and address as needed. Appetite: Monitor and address as needed. Discharge planning: Pending therapy progress and care plan meeting. Will continue discussion with therapy team, SW, patient and family. Will likely need 10-14 days total to ensure safe discharge home with intermittent family supervision. Restrictions/ Precautions: Falls, cranial flap replaced (helmet on when out of bed), seizure WB status: FWB Functional Hx: ADLs: Independent Cognition: Independent Mobility: No AD Barriers to Discharge: Decreased mobility and ability to perform self care, balance deficits, weakness, and impulsivity, decreased awareness of safety Estimated Length of Stay: 10-14 days Discharge Destination: Home with family and intermittent supervision
[2019-06-29 13:14] LABS: BUN/Creatinine Ratio 10; Blood Urea Nitrogen 7 mg/dL (7-17); Calcium 8.9 mg/dL (8.4-10.2); Hemolysis Index 4
[2019-06-29] MEDS: PRAVACHOL PO SCH (21:53)
[2019-06-29] MEDS: LOVENOX SUB-Q SCH (21:54)
[2019-06-30] MEDS: LOPRESSOR PO SCH ×2 (09:12→22:24)
[2019-06-30] MEDS: PROTONIX PO SCH (09:12)
[2019-06-30] MEDS: KEPPRA PO SCH ×2 (09:13→22:23)
--- NOTE | 2019-06-30 16:20 | Progress Note ---
Subjective Date of service: 06/30/19 Principal diagnosis: ICH Interval history: 73 yo female who underwent excision of meningioma and was discharged home in good condition with the later evolution of weakness and decline. She was evaluated and found to have an ICH and taken for emergent craniotomy. Flap was out when she was last here, helmet should be on when OOB. During her last stay with us she was returned to the outside hospital for a CSF leak from the right nostril. She also had an elevated white count along with a fever. Once returned to the outside hospital she underwent antibiotic treatment as well as surgical repair of the cranial defect which is now bandaged. She underwent therapy at OSH and still needs further therapy in order to return to prior level of functioning as well as to be able to return home safely. Once she was medically stable she was transferred for further rehab. Have placed a bed alarm on. Have discussed with nursing that she needs to be monitored closely. I have also discussed with the patient that she needs to avoid getting out of the bed without assistance. Patient is participating in therapy and making reasonable progress. Taking rest breaks as needed. Was found up in bathroom with helmet on. Therapy discussed with her the need to still get help before getting up. I later had similar discussion. Attempted to return call to daughter several times but phone would disconnect after ringing a few times. BP stable. +BM. Denies MURRY, nasal drainage, pain, palpitations, dyspnea, cough, N/V or joint pain. Follow up after discharge. All records, vitals, labs and medications were reviewed. No other issues per patient, nursing or therapy. Objective - Exam Narrative Exam: MUSCULOSKELETAL SPECIALTY EXAM CONSTITUTIONAL: Well developed, well nourished, appropriately groomed HEENT: Right frontal crani flap replaced, suture line healing well without drainage or signs of infection. No signs of CSF leak. EOMI. Hearing intact to soft voice RESPIRATORY: Clear to auscultation bilaterally, no increased work of breathing CARDIOVASCULAR: Regular Rate/ Rhythm, no swelling, edema or tenderness in BUE or BLE. All extremities warm. GI: + bowel sounds, soft, NTTP, nondistended. INTEGUMENTARY: Except for scalp as noted above, Normal, no lesion, rash, masses or bruising noted in extremities. MUSCULOSKELETAL: BUE and BLE normal without defect, crepitus, subluxation, effusion, arthritic changes or TTP. BUE 4+/5, good ROM, with normal tone. BLE 4+/5 good ROM, with normal tone NEURO: CN 2-12 grossly intact. Sensation intact in all extremities. No tremor noted in 4 extremities. POSTURE and GAIT: Sitting posture good. Balance appears reasonable with LOB when challenged, only slight when not challenged. Observed with therapy, gait is slowed and LOB during shorter distances noted. PSYCH: Alert, orientated x3, affect appears normal. Insight appears improved. Intermittent confusion but not seeing much impulsiveness. Difficulty with sequencing. - Constitutional Vitals: Vital Signs - 12hr 06/30/19 06/30/19 06/30/19 04:36 08:00 08:13 Temperature 36.6 C 36.2 C L Pulse Rate 67 66 65 Respiratory 20 18 Rate Blood Pressure 137/77 Blood Pressure 120/66 [Right] O2 Sat by Pulse 99 98 Oximetry 06/30/19 12:00 Temperature 36.2 C L Pulse Rate Respiratory 18 Rate Blood Pressure Blood Pressure 115/65 [Right] O2 Sat by Pulse Oximetry - Allied health notes Allied health notes reviewed: nursing, PT, ST, OT FIMS assessment as documented by PT/OT/ST: Grooming Patient cleans teeth/dentures: Yes Patient clifton/brushes hair: Yes Patient washes, rinses and Yes dries face: Patient washes, rinses and Yes dries hands: Patient applies make-up: No Patient performs (no make-up/ / (100%) shaving): Grooming FIM Score 5. Supervision (Kendall applies toothpaste or opens containers.) Toileting Toileting Device Commode over Toilet Patient able to: Adjust clothes before,Clean self,Adjust clothes after Patient able to perform: 3/3 (100%) Toileting FIM Score 4. Minimal Assistance (Patient = 75% or more. Needs touching.) Social interaction/Memory/Problem solving Social Interaction FIM Score 5. Supervision (Needs supv. <10%. Needs encouragement to participate.) Memory FIM Score 4. Minimal Assistance (Recognizes and remembers 75-90%.) Problem Solving FIM Score 4. Minimal Assistance (Solves routine problems 75-90%.) Transfers Mode of Locomotion: Wheelchair Bed/Chair/Wheelchair Transfers 5. Supervision (Needs supv. or set-up for FIM Score sliding board, foot rests.) Toilet Transfers FIM Score 4. Minimal Assistance (Patient = 75% or more. Needs touching.) Patient transferred to: Shower Shower Transfers FIM Score 4. Minimal Assistance (Patient = 75% or more. Needs touching.) Locomotion- Stairs Device used on Stairs Handrail/s Number of Stairs Ascended/ 16 Descended Patient used handrail/support: Yes Stairs FIM Score 5. Supervision (12-14 stairs w/ supv. 4-6 stairs independently.) Locomotion- walk/wheelchair Most Frequent Mode of Walking Locomotion: Ambulation Distance 340 Walking FIM Score 5. Supervision (Minimum 150 ft. supv./cues or 50 ft. independently.) Wheelchair Propulsion Distance 200 Wheelchair FIM Score 5. Supervision (Minimum 150 ft. supv./cues or 50 ft. independently.) Eating Eating FIM Score 5. Supervision/Set-Up (Needs help w/ containers, cutting meat, etc.) Dressing-Upper body Patient retrieves clothing No items: Patient applies/removes UE n/a prosthesis or orthosis: Upper Body Dressing FIM Score 5. Supv./Set-Up (Kendall sets out clothes or applies pros./orth.) Dressing-lower body Lower Body Dressing Device [place] Patient retrieves clothing No items: Patient applies/removes LE n/a prosthesis or orthosis: Lower Body Dressing FIM Score 6. Modified [place] (Needs equipment, velcro or pros./orth.) - Labs CBC & Chem 7: 06/28/19 06:26 06/29/19 12:10 Labs: Laboratory Results - last 72 hr 06/28/19 06/28/19 06/28/19 06:26 06:26 06:26 WBC 9.8 RBC 3.41 L Hgb 10.4 Hct 31.1 MCV 91 MCH 31 MCHC 34 RDW 17.1 H Plt Count 400 Sodium 145 Potassium 3.5 L Chloride 106.1 Carbon Dioxide 26 Anion Gap 16 BUN 9 Creatinine 0.9 Estimated GFR > 60 BUN/Creatinine Ratio 10 Glucose 118 H POC Glucose Calcium 8.8 Magnesium 1.50 L 06/28/19 06/29/19 06/29/19 21:41 12:10 12:10 WBC RBC Hgb Hct MCV MCH MCHC RDW Plt Count Sodium 143 Potassium 4.1 Chloride 106.8 Carbon Dioxide 25 Anion Gap 15 BUN 7 Creatinine 0.7 Estimated GFR > 60 BUN/Creatinine Ratio 10 Glucose 112 H POC Glucose 119 H Calcium 8.9 Magnesium 2.10 Assessment and Plan Intracranial hemorrhage status post craniotomy: Fall precautions, helmet on when out of bed, bed alarm. We'll continue to assess patient as she is a high risk for future falls. Monitor scalp for any signs of changes or infection, healing well. Ivelisse removed Hypertension: Continue medication adjustments as needed for normotension Hyperlipidemia: continue statin GERD: Continue Protonix, monitor Constipation: continue bowel meds and monitor for normal bowel regimen Seizure: Continue seizure precaution, monitor frequently for changes in neuro status, continue Keppra Z73.6 ADL dysfunction: OT will work on improving ability to perform ADLs (including assistive devices) to increase independence and decrease caregiver burden and improve functional transfers and mobility training. R26.2 Difficulty walking: PT will work on gait training and proper use of assistive devices and advance as appropriate to use of stairs and outside ambulation on uneven surfaces. R26.81 Unsteadiness on feet: PT will work on improving static and dynamic sitting and standing balance as well as proper use of assistive devices to decrease risk of falls. R26.89 Abnormality of gait: PT will work to improve safety and efficiency of gait through neuromotor training and gait training along with instruction on proper use of assistive devices. M62.81 Muscle weakness: PT & OT will work on strengthening exercises to improve functional strength including mixture of closed and open kinetic chain exercises. R53.81 Debility: PT & OT will work on improving overall functional status to improve participation with ADLs, mobility and social involvement. R53.83 Fatigue: PT & OT will work on improving endurance through aerobic exercises and therapeutic activity while monitoring patients tolerance for activity and vital signs as needed. Hypokalemia and hypomagnesemia: replaced DVT ppx: lovenox Pain: Continue physical modalities in therapy and pain medications as needed to achieve functional pain control. Sleep: Monitor and address as needed. Bowel: Monitor and address as needed. Appetite: Monitor and address as needed. Discharge planning: Pending therapy progress and care plan meeting. Will continue discussion with therapy team, SW, patient and family. Will likely need 10-14 days total to ensure safe discharge home with intermittent family supervision. Restrictions/ Precautions: Falls, cranial flap replaced (helmet on when out of bed), seizure WB status: FWB Functional Hx: ADLs: Independent Cognition: Independent Mobility: No AD Barriers to Discharge: Decreased mobility and ability to perform self care, balance deficits, weakness, and impulsivity, decreased awareness of safety Estimated Length of Stay: 10-14 days Discharge Destination: Home with family and intermittent supervision
[2019-06-30] MEDS: LOVENOX SUB-Q SCH (22:22)
[2019-06-30] MEDS: PRAVACHOL PO SCH (22:23)
[2019-07-01] MEDS: LOPRESSOR PO SCH ×2 (08:57→22:47)
[2019-07-01] MEDS: PROTONIX PO SCH (08:57)
[2019-07-01] MEDS: KEPPRA PO SCH ×2 (08:57→22:48)
--- NOTE | 2019-07-01 16:36 | Progress Note ---
Subjective Date of service: 07/01/19 Principal diagnosis: ICH Interval history: 73 yo female who underwent excision of meningioma and was discharged home in good condition with the later evolution of weakness and decline. She was evaluated and found to have an ICH and taken for emergent craniotomy. Flap was out when she was last here, helmet should be on when OOB. During her last stay with us she was returned to the outside hospital for a CSF leak from the right nostril. She also had an elevated white count along with a fever. Once returned to the outside hospital she underwent antibiotic treatment as well as surgical repair of the cranial defect which is now bandaged. She underwent therapy at OSH and still needs further therapy in order to return to prior level of functioning as well as to be able to return home safely. Once she was medically stable she was transferred for further rehab. Have placed a bed alarm on. Have discussed with nursing that she needs to be monitored closely. I have also discussed with the patient that she needs to avoid getting out of the bed without assistance. Patient is participating in therapy and making reasonable progress. Taking rest breaks as needed. Bladder incontinence with therapy. Denies dysuria. Check UA. Again attempted to return call to daughter several times but phone would disconnect after ringing a few times. BP stable. +BM. Denies MURRY, nasal drainage, pain, palpitations, dyspnea, cough, N/V or joint pain. Follow up with [facility] after discharge. Discussed in Team Conference. Overall much improved. Some poor safety awareness. A few instances of bladder incontinence in therapy. Look to DC 07/06. All records, vitals, labs and medications were reviewed. No other issues per patient, nursing or therapy. Objective - Exam Narrative Exam: MUSCULOSKELETAL SPECIALTY EXAM CONSTITUTIONAL: Well developed, well nourished, appropriately groomed HEENT: Right frontal crani flap replaced, suture line healing well without drainage or signs of infection. No signs of CSF leak. EOMI. Hearing intact to soft voice RESPIRATORY: Clear to auscultation bilaterally, no increased work of breathing CARDIOVASCULAR: Regular Rate/ Rhythm, no swelling, edema or tenderness in BUE or BLE. All extremities warm. GI: + bowel sounds, soft, NTTP, nondistended. : Incontinence with Therapy INTEGUMENTARY: Except for scalp as noted above, Normal, no lesion, rash, masses or bruising noted in extremities. MUSCULOSKELETAL: BUE and BLE normal without defect, crepitus, subluxation, effusion, arthritic changes or TTP. BUE 4+/5, good ROM, with normal tone. BLE 4+/5 good ROM, with normal tone NEURO: CN 2-12 grossly intact. Sensation intact in all extremities. No tremor noted in 4 extremities. POSTURE and GAIT: Sitting posture good. Balance appears reasonable with LOB when challenged, only slight when not challenged. Observed with therapy, gait is slowed and LOB during shorter distances noted. PSYCH: Alert, orientated x3, affect appears normal. Insight appears improved. Intermittent confusion but not seeing much impulsiveness. Difficulty with sequencing. - Constitutional Vitals: Vital Signs - 12hr 07/01/19 07/01/19 07/01/19 05:08 07:41 07:42 Temperature 36.8 C 36.6 C Pulse Rate 66 65 64 Respiratory 17 18 Rate Blood Pressure 101/56 121/70 O2 Sat by Pulse 96 98 99 Oximetry 07/01/19 08:57 Temperature Pulse Rate 65 Respiratory Rate Blood Pressure 121/70 O2 Sat by Pulse Oximetry - Allied health notes Allied health notes reviewed: nursing, PT, ST, OT FIMS assessment as documented by PT/OT/ST: Grooming Patient cleans teeth/dentures: Yes Patient clifton/brushes hair: Yes Patient washes, rinses and Yes dries face: Patient washes, rinses and Yes dries hands: Patient applies make-up: No Patient performs (no make-up/ 4/ (100%) shaving): Grooming FIM Score 5. Supervision ([place] applies toothpaste or opens containers.) Toileting Toileting Device Commode over Toilet Patient able to: Adjust clothes before,Clean self,Adjust clothes after Patient able to perform: 3/3 (100%) Toileting FIM Score 4. Minimal Assistance (Patient = 75% or more. Needs touching.) Social interaction/Memory/Problem solving Social Interaction FIM Score 7. Complete [place] (Interacts appropriately. Controls temper.) Memory FIM Score 6. Modified [place](Mild difficulty remembering people/routines.) Problem Solving FIM Score 5. Supervision (Needs cueing <10% to solve routine problems.) Transfers Mode of Locomotion: Wheelchair Bed/Chair/Wheelchair Transfers 5. Supervision (Needs supv. or set-up for FIM Score sliding board, foot rests.) Toilet Transfers FIM Score 4. Minimal Assistance (Patient = 75% or more. Needs touching.) Patient transferred to: Shower Shower Transfers FIM Score 4. Minimal Assistance (Patient = 75% or more. Needs touching.) Locomotion- Stairs Device used on Stairs Handrail/s Number of Stairs Ascended/ 16 Descended Patient used handrail/support: Yes Stairs FIM Score 5. Supervision (12-14 stairs w/ supv. 4-6 stairs independently.) Locomotion- walk/wheelchair Most Frequent Mode of Walking Locomotion: Ambulation Distance 340 Walking FIM Score 5. Supervision (Minimum 150 ft. supv./cues or 50 ft. independently.) Wheelchair Propulsion Distance 200 Wheelchair FIM Score 5. Supervision (Minimum 150 ft. supv./cues or 50 ft. independently.) Eating Eating FIM Score 5. Supervision/Set-Up (Needs help w/ containers, cutting meat, etc.) Dressing-Upper body Patient retrieves clothing No items: Patient applies/removes UE n/a prosthesis or orthosis: Upper Body Dressing FIM Score 5. Supv./Set-Up ([place] sets out clothes or applies pros./orth.) Dressing-lower body Lower Body Dressing Device [place] Patient retrieves clothing No items: Patient applies/removes LE n/a prosthesis or orthosis: Lower Body Dressing FIM Score 5. Supv./Set-Up (Mazon sets out clothes or applies pros./orth.) - Labs CBC & Chem 7: 07/04/19 07:22 07/04/19 07:22 Labs: Laboratory Results - last 72 hr 06/28/19 06/29/19 06/29/19 21:41 12:10 12:10 Sodium 143 Potassium 4.1 Chloride 106.8 Carbon Dioxide 25 Anion Gap 15 BUN 7 Creatinine 0.7 Estimated GFR > 60 BUN/Creatinine Ratio 10 Glucose 112 H POC Glucose 119 H Calcium 8.9 Magnesium 2.10 Assessment and Plan Intracranial hemorrhage status post craniotomy: Fall precautions, helmet on when out of bed, bed alarm. We'll continue to assess patient as she is a high risk for future falls. Monitor scalp for any signs of changes or infection, healing well. Ivelisse removed Hypertension: Continue medication adjustments as needed for normotension Hyperlipidemia: continue statin GERD: Continue Protonix, monitor Constipation: continue bowel meds and monitor for normal bowel regimen Seizure: Continue seizure precaution, monitor frequently for changes in neuro status, continue Keppra Z73.6 ADL dysfunction: OT will work on improving ability to perform ADLs (including assistive devices) to increase independence and decrease caregiver burden and improve functional transfers and mobility training. R26.2 Difficulty walking: PT will work on gait training and proper use of assistive devices and advance as appropriate to use of stairs and outside ambulation on uneven surfaces. R26.81 Unsteadiness on feet: PT will work on improving static and dynamic sitting and standing balance as well as proper use of assistive devices to decr ease risk of falls. R26.89 Abnormality of gait: PT will work to improve safety and efficiency of gai t through neuromotor training and gait training along with instruction on proper use of assistive devices. M62.81 Muscle weakness: PT & OT will work on strengthening exercises to improve functional strength including mixture of closed and open kinetic chain exercises. R53.81 Debility: PT & OT will work on improving overall functional status to improve participation with ADLs, mobility and social involvement. R53.83 Fatigue: PT & OT will work on improving endurance through aerobic exercises and therapeutic activity while monitoring patients tolerance for activity and vital signs as needed. Hypokalemia and hypomagnesemia: replaced Incontinent episodes - check UA DVT ppx: lovenox Pain: Continue physical modalities in therapy and pain medications as needed to achieve functional pain control. Sleep: Monitor and address as needed. Bowel: Monitor and address as needed. Appetite: Monitor and address as needed. Discharge planning: Pending therapy progress and care plan meeting. Will co ntinue discussion with therapy team, SW, patient and family. Will likely need 10-14 days total to ensure safe discharge home with intermittent family supervision. Restrictions/ Precautions: Falls, cranial flap replaced (helmet on when out of bed), seizure WB status: FWB Functional Hx: ADLs: Independent Cognition: Independent Mobility: No AD Barriers to Discharge: Decreased mobility and ability to perform self care, balance deficits, weakness, and impulsivity, decreased awareness of safety Estimated Length of Stay: 10-14 days Discharge Destination: Home with family and intermittent supervision
[2019-07-01] MEDS: LOVENOX SUB-Q SCH (22:46)
[2019-07-01] MEDS: PRAVACHOL PO SCH (22:48)
[2019-07-02 05:58] LABS: Hemoglobin 10.3 gm/dl (10.1-14.3); Mean Corpuscular HGB Conc 33 % (30-34); Mean Corpuscular Volume 91 fl (79-97); Platelet Count 336 K/mm3 (140-440); Red Cell Distribution Width 17.2 % (13.2-15.2)
[2019-07-02 06:26] LABS: BUN/Creatinine Ratio 10; Blood Urea Nitrogen 8 mg/dL (7-17); Calcium 8.8 mg/dL (8.4-10.2); Hemolysis Index 5
[2019-07-02 11:53] LABS: Bilirubin,Urine NEG (Negative); Blood,Urine NEG (Negative); Color,Urine Yellow (Yellow); Mucus,Urine FEW /HPF; Protein,Urine <15 mg/dL mg/dL (Negative); Urobilinogen,Urine < 2.0 mg/dL (<2.0)
[2019-07-02] MEDS: LOPRESSOR PO SCH ×2 (12:11→22:11)
[2019-07-02] MEDS: KEPPRA PO SCH ×2 (12:12→22:00)
[2019-07-02] MEDS: PROTONIX PO SCH (14:12)
[2019-07-02] MEDS: PRAVACHOL PO SCH (21:00)
[2019-07-02] MEDS: LOVENOX SUB-Q SCH (22:13)
[2019-07-03] MEDS: KEPPRA PO SCH ×2 (08:45→22:05)
[2019-07-03] MEDS: LOPRESSOR PO SCH ×2 (09:44→22:04)
[2019-07-03] MEDS: PROTONIX PO SCH (09:47)
[2019-07-03 17:22] LABS: Bilirubin,Urine NEG (Negative); Color,Urine Straw (Yellow)
[2019-07-03 17:23] LABS: Blood,Urine NEG (Negative); Protein,Urine <15 mg/dL mg/dL (Negative); RBC,Urine < 1.0 /HPF (0.0-6.0); Urobilinogen,Urine < 2.0 mg/dL (<2.0)
[2019-07-03] MEDS: PRAVACHOL PO SCH (21:00)
[2019-07-03] MEDS: LOVENOX SUB-Q SCH (22:07)
[2019-07-04 07:40] LABS: Hematocrit 38.4 % (30.3-42.9); Hemoglobin 12.6 gm/dl (10.1-14.3); Mean Corpuscular HGB Conc 33 % (30-34); Mean Corpuscular Volume 91 fl (79-97); Platelet Count 399 K/mm3 (140-440); Red Blood Count 4.23 M/mm3 (3.65-5.03); Red Cell Distribution Width 16.7 % (13.2-15.2)
[2019-07-04 08:14] LABS: BUN/Creatinine Ratio 13; Blood Urea Nitrogen 10 mg/dL (7-17); Calcium 9.5 mg/dL (8.4-10.2); Hemolysis Index 212
[2019-07-04] MEDS: PROTONIX PO SCH (08:59)
[2019-07-04] MEDS: KEPPRA PO SCH ×2 (09:00→21:41)
[2019-07-04] MEDS: LOPRESSOR PO SCH ×2 (09:00→21:42)
--- NOTE | 2019-07-04 09:41 | Progress Note ---
Subjective Date of service: 07/02/19 Principal diagnosis: ICH Interval history: 73 yo female who underwent excision of meningioma and was discharged home in good condition with the later evolution of weakness and decline. She was evaluated and found to have an ICH and taken for emergent craniotomy. Flap was out when she was last here, helmet should be on when OOB. During her last stay with us she was returned to the outside hospital for a CSF leak from the right nostril. She also had an elevated white count along with a fever. Once returned to the outside hospital she underwent antibiotic treatment as well as surgical repair of the cranial defect which is now bandaged. She underwent therapy at OSH and still needs further therapy in order to return to prior level of functioning as well as to be able to return home safely. Once she was medically stable she was transferred for further rehab. Have placed a bed alarm on. Have discussed with nursing that she needs to be monitored closely. I have also discussed with the patient that she needs to avoid getting out of the bed without assistance. Patient is participating in therapy and making reasonable progress. Taking rest breaks as needed. UA contaminated, redraw with SC. Attempted to return call to daughter again but phone disconnected. Tried again with [place]. BP stable. +BM. Denies MURRY, nasal drainage, pain, palpitations, dyspnea, cough, N/V or joint pain. Follow up NSURG after discharge. All records, vitals, labs and medications were reviewed. No other issues per patient, nursing or therapy. Objective - Exam Narrative Exam: MUSCULOSKELETAL SPECIALTY EXAM CONSTITUTIONAL: Well developed, well nourished, appropriately groomed HEENT: Right frontal crani flap replaced, suture line healing well without drainage or signs of infection. No signs of CSF leak. EOMI. Hearing intact to soft voice RESPIRATORY: Clear to auscultation bilaterally, no increased work of breathing CARDIOVASCULAR: Regular Rate/ Rhythm, no swelling, edema or tenderness in BUE or BLE. All extremities warm. GI: + bowel sounds, soft, NTTP, nondistended. INTEGUMENTARY: Except for scalp as noted above, Normal, no lesion, rash, masses or bruising noted in extremities. MUSCULOSKELETAL: BUE and BLE normal without defect, crepitus, subluxation, effusion, arthritic changes or TTP. BUE 5/5, good ROM, with normal tone. BLE 4+/5 good ROM, with normal tone NEURO: CN 2-12 grossly intact. Sensation intact in all extremities. No tremor noted in 4 extremities. POSTURE and GAIT: Sitting posture good. Balance appears reasonable with LOB when challenged, only slight when not challenged. Observed with therapy, gait is slowed and LOB during shorter distances noted. PSYCH: Alert, orientated x3, affect appears normal. Insight appears improved. Intermittent confusion but not seeing much impulsiveness. Difficulty with sequencing. - Constitutional Vitals: Vital Signs - 12hr 07/03/19 07/04/19 07/04/19 22:04 07:51 09:00 Temperature 36.6 C Pulse Rate 69 80 80 Respiratory 18 Rate Blood Pressure 116/60 114/74 114/74 O2 Sat by Pulse 99 Oximetry - Allied health notes Allied health notes reviewed: nursing, PT, ST, OT FIMS assessment as documented by PT/OT/ST: Grooming Patient cleans teeth/dentures: Yes Patient [place]/brushes hair: Yes Patient washes, rinses and Yes dries face: Patient washes, rinses and Yes dries hands: Patient applies make-up: No Patient performs (no make-up/ 4/4 (100%) shaving): Grooming FIM Score 6. Modified [place] (Needs equipment/device . Extra time.) Toileting Toileting Device Grab Bar Patient able to: Adjust clothes before,Clean self,Adjust clothes after Patient able to perform: 3/3 (100%) Toileting FIM Score 6. Modified [place] (Needs equip. or prosth ./orth.) Social interaction/Memory/Problem solving Social Interaction FIM Score 7. Complete [place] (Interacts appropriately. Controls temper.) Memory FIM Score 6. Modified [place](Mild difficulty remembering people/routines.) Problem Solving FIM Score 6. Mod. [place] (Mild difficulty or needs more time w/ complex.) Transfers Mode of Locomotion: Wheelchair Bed/Chair/Wheelchair Transfers 5. Supervision (Needs supv. or set-up for FIM Score sliding board, foot rests.) Toilet Transfers FIM Score 5. Supervision (Needs supervision or cueing.) Patient transferred to: Shower Shower Transfers FIM Score 4. Minimal Assistance (Patient = 75% or more. Needs touching.) Locomotion- Stairs Device used on Stairs Handrail/s Number of Stairs Ascended/ 16 Descended Patient used handrail/support: Yes Stairs FIM Score 5. Supervision (12-14 stairs w/ supv. 4-6 stairs independently.) Locomotion- walk/wheelchair Most Frequent Mode of Walking Locomotion: Ambulation Distance 340 Walking FIM Score 5. Supervision (Minimum 150 ft. supv./cues or 50 ft. independently.) Wheelchair Propulsion Distance 200 Wheelchair FIM Score 5. Supervision (Minimum 150 ft. supv./cues or 50 ft. independently.) Eating Eating FIM Score 7. Complete [place] (Cuts meat, opens containers, regular diet.) Dressing-Upper body Patient retrieves clothing No items: Patient applies/removes UE n/a prosthesis or orthosis: Upper Body Dressing FIM Score 5. Supv./Set-Up ([place] sets out clothes or applies pros./orth.) Dressing-lower body Lower Body Dressing Device [place] Patient retrieves clothing No items: Patient applies/removes LE n/a prosthesis or orthosis: Lower Body Dressing FIM Score 5. Supv./Set-Up ([place] sets out clothes or applies pros./orth.) - Labs CBC & Chem 7: 07/04/19 07:22 07/04/19 07:22 Labs: Laboratory Results - last 72 hr 07/01/19 07/02/19 07/02/19 Unknown 05:46 05:46 WBC 7.8 RBC 3.40 L Hgb 10.3 Hct 31.0 MCV 91 MCH 30 MCHC 33 RDW 17.2 H Plt Count 336 Sodium 146 H Potassium 3.8 Chloride 108.0 H Carbon Dioxide 25 Anion Gap 17 BUN 8 Creatinine 0.8 Estimated GFR > 60 BUN/Creatinine Ratio 10 Glucose 119 H Calcium 8.8 Urine Color Yellow Urine Turbidity Clear Urine pH 5.0 Ur Specific [place] 1.016 Urine Protein <15 mg/dl Urine Glucose (UA) Neg Urine Ketones Neg Urine Blood Neg Urine Nitrite Neg Urine Bilirubin Neg Urine Urobilinogen < 2.0 Ur Leukocyte Esterase Mod Urine WBC (Auto) 10.0 H Urine RBC (Auto) 6.0 U Epithel Cells (Auto) 2.0 Urine Mucus Few 07/03/19 07/04/19 07/04/19 17:00 07:22 07:22 WBC 13.5 H RBC 4.23 Hgb 12.6 Hct 38.4 D MCV 91 MCH 30 MCHC 33 RDW 16.7 H Plt Count 399 Sodium 141 Potassium 5.0 D Chloride 102.1 Carbon Dioxide 24 Anion Gap 20 BUN 10 Creatinine 0.8 Estimated GFR > 60 BUN/Creatinine Ratio 13 Glucose 114 H Calcium 9.5 Urine Color Straw Urine Turbidity Clear Urine pH 7.0 Ur Specific [place] 1.008 Urine Protein <15 mg/dl Urine Glucose (UA) Neg Urine Ketones Neg Urine Blood Neg Urine Nitrite Neg Urine Bilirubin Neg Urine Urobilinogen < 2.0 Ur Leukocyte Esterase Tr Urine WBC (Auto) 9.0 H Urine RBC (Auto) < 1.0 U Epithel Cells (Auto) < 1.0 Urine Mucus Assessment and Plan Intracranial hemorrhage status post craniotomy: Fall precautions, helmet on when out of bed, bed alarm. We'll continue to assess patient as she is a high risk for future falls. Monitor scalp for any signs of changes or infection, healing well. [place] removed Hypertension: Continue medication adjustments as needed for normotension Hyperlipidemia: continue statin GERD: Continue Protonix, monitor Constipation: continue bowel meds and monitor for normal bowel regimen Seizure: Continue seizure precaution, monitor frequently for changes in neuro status, continue Keppra Z73.6 ADL dysfunction: OT will work on improving ability to perform ADLs (including assistive devices) to increase independence and decrease caregiver burden and improve functional transfers and mobility training. R26.2 Difficulty walking: PT will work on gait training and proper use of assistive devices and advance as appropriate to use of stairs and outside ambulation on uneven surfaces. R26.81 Unsteadiness on feet: PT will work on improving static and dynamic sitting and standing balance as well as proper use of assistive devices to decre ase risk of falls. R26.89 Abnormality of gait: PT will work to improve safety and efficiency of gait through neuromotor training and gait training along with instruction on proper use of assistive devices. M62.81 Muscle weakness: PT & OT will work on strengthening exercises to improve functional strength including mixture of closed and open kinetic chain exercises. R53.81 Debility: PT & OT will work on improving overall functional status to improve participation with ADLs, mobility and social involvement. R53.83 Fatigue: PT & OT will work on improving endurance through aerobic exercises and therapeutic activity while monitoring patients tolerance for activity and vital signs as needed. Hypokalemia and hypomagnesemia: replaced DVT ppx: lovenox Pain: Continue physical modalities in therapy and pain medications as needed to achieve functional pain control. Sleep: Monitor and address as needed. Bowel: Monitor and address as needed. Appetite: Monitor and address as needed. Discharge planning: Pending therapy progress and care plan meeting. Will continue discussion with therapy team, SW, patient and family. Will likely need 10-14 days total to ensure safe discharge home with intermittent family supervision. Incontinent bladder: redraw UA, start Abx if positive Restrictions/ Precautions: Falls, cranial flap replaced (helmet on when out of bed), seizure WB status: FWB Functional Hx: ADLs: Independent Cognition: Independent Mobility: No AD Barriers to Discharge: Decreased mobility and ability to perform self care, balance deficits, weakness, and impulsivity, decreased awareness of safety Estimated Length of Stay: 10-14 days Discharge Destination: Home with family and intermittent supervision
[2019-07-04] MEDS: LEVAQUIN PO SCH (15:49)
--- NOTE | 2019-07-04 18:16 | Progress Note ---
Subjective Date of service: 07/04/19 Principal diagnosis: ICH Interval history: 73 yo female who underwent excision of meningioma and was discharged home in good condition with the later evolution of weakness and decline. She was evaluated and found to have an ICH and taken for emergent craniotomy. Flap was out when she was last here, helmet should be on when OOB. During her last stay with us she was returned to the outside hospital for a CSF leak from the right nostril. She also had an elevated white count along with a fever. Once returned to the outside hospital she underwent antibiotic treatment as well as surgical repair of the cranial defect which is now bandaged. She underwent therapy at OSH and still needs further therapy in order to return to prior level of functioning as well as to be able to return home safely. Once she was medically stable she was transferred for further rehab. Have placed a bed alarm on. Have discussed with nursing that she needs to be monitored closely. I have also discussed with the patient that she needs to avoid getting out of the bed without assistance. Patient is participating in therapy and making reasonable progress. Taking rest breaks as needed. Denies dysuria. Repeat UA obtained. Levaquin started. BP stable. +BM. Denies MURRY, nasal drainage, pain, palpitations, dyspnea, cough, N/V or joint pain. Follow up NSURG after discharge. All records, vitals, labs and medications were reviewed. No other issues per patient, nursing or therapy. Objective - Exam Narrative Exam: MUSCULOSKELETAL SPECIALTY EXAM CONSTITUTIONAL: Well developed, well nourished, appropriately groomed HEENT: Right frontal crani flap replaced, suture line healing well without drainage or signs of infection. No signs of CSF leak. EOMI. Hearing intact to soft voice RESPIRATORY: Clear to auscultation bilaterally, no increased work of breathing CARDIOVASCULAR: Regular Rate/ Rhythm, no swelling, edema or tenderness in BUE or BLE. All extremities warm. GI: + bowel sounds, soft, NTTP, nondistended. INTEGUMENTARY: Except for scalp as noted above, Normal, no lesion, rash, masses or bruising noted in extremities. MUSCULOSKELETAL: BUE and BLE normal without defect, crepitus, subluxation, effusion, arthritic changes or TTP. BUE 5/5, good ROM, with normal tone. BLE 4+/5 good ROM, with normal tone NEURO: CN 2-12 grossly intact. Sensation intact in all extremities. No tremor noted in 4 extremities. POSTURE and GAIT: Sitting posture good. Balance appears reasonable with LOB when challenged, only slight when not challenged. Observed with therapy, gait is slowed and LOB during shorter distances noted. PSYCH: Alert, orientated x3, affect appears normal. Insight appears improved. Intermittent confusion but not seeing much impulsiveness. Difficulty with sequencing. - Constitutional Vitals: Vital Signs - 12hr 07/04/19 07/04/19 07/04/19 07:51 09:00 11:35 Temperature 36.6 C 36.4 C Pulse Rate 80 80 73 Respiratory 18 18 Rate Blood Pressure 114/74 114/74 135/71 O2 Sat by Pulse 99 98 Oximetry - Allied health notes FIMS assessment as documented by PT/OT/ST: Grooming Patient cleans teeth/dentures: Yes Patient [place]/brushes hair: Yes Patient washes, rinses and Yes dries face: Patient washes, rinses and Yes dries hands: Patient applies make-up: No Patient performs (no make-up/ / (100%) shaving): Grooming FIM Score 6. Modified [place] (Needs equipment/device . Extra time.) Toileting Toileting Device Grab Bar Patient able to: Adjust clothes before,Clean self,Adjust clothes after Patient able to perform: 3/3 (100%) Toileting FIM Score 6. Modified [place] (Needs equip. or prosth ./orth.) Social interaction/Memory/Problem solving Social Interaction FIM Score 7. Complete [place] (Interacts appropriately. Controls temper.) Memory FIM Score 6. Modified [place](Mild difficulty remembering people/routines.) Problem Solving FIM Score 6. Mod. [place] (Mild difficulty or needs more time w/ complex.) Transfers Mode of Locomotion: Wheelchair Bed/Chair/Wheelchair Transfers 5. Supervision (Needs supv. or set-up for FIM Score sliding board, foot rests.) Toilet Transfers FIM Score 5. Supervision (Needs supervision or cueing.) Patient transferred to: Shower Shower Transfers FIM Score 4. Minimal Assistance (Patient = 75% or more. Needs touching.) Locomotion- Stairs Device used on Stairs Handrail/s Number of Stairs Ascended/ 16 Descended Patient used handrail/support: Yes Stairs FIM Score 5. Supervision (12-14 stairs w/ supv. 4-6 stairs independently.) Locomotion- walk/wheelchair Most Frequent Mode of Walking Locomotion: Ambulation Distance 340 Walking FIM Score 5. Supervision (Minimum 150 ft. supv./cues or 50 ft. independently.) Wheelchair Propulsion Distance 200 Wheelchair FIM Score 5. Supervision (Minimum 150 ft. supv./cues or 50 ft. independently.) Eating Eating FIM Score 7. Complete [place] (Cuts meat, opens containers, regular diet.) Dressing-Upper body Patient retrieves clothing No items: Patient applies/removes UE n/a prosthesis or orthosis: Upper Body Dressing FIM Score 5. Supv./Set-Up ([place] sets out clothes or applies pros./orth.) Dressing-lower body Lower Body Dressing Device [place] Patient retrieves clothing No items: Patient applies/removes LE n/a prosthesis or orthosis: Lower Body Dressing FIM Score 5. Supv./Set-Up ([place] sets out clothes or applies pros./orth.) - Labs CBC & Chem 7: 07/04/19 07:22 07/04/19 07:22 Labs: Laboratory Results - last 72 hr 07/01/19 07/02/19 07/02/19 Unknown 05:46 05:46 WBC 7.8 RBC 3.40 L Hgb 10.3 Hct 31.0 MCV 91 MCH 30 MCHC 33 RDW 17.2 H Plt Count 336 Sodium 146 H Potassium 3.8 Chloride 108.0 H Carbon Dioxide 25 Anion Gap 17 BUN 8 Creatinine 0.8 Estimated GFR > 60 BUN/Creatinine Ratio 10 Glucose 119 H Calcium 8.8 Urine Color Yellow Urine Turbidity Clear Urine pH 5.0 Ur Specific [place] 1.016 Urine Protein <15 mg/dl Urine Glucose (UA) Neg Urine Ketones Neg Urine Blood Neg Urine Nitrite Neg Urine Bilirubin Neg Urine Urobilinogen < 2.0 Ur Leukocyte Esterase Mod Urine WBC (Auto) 10.0 H Urine RBC (Auto) 6.0 U Epithel Cells (Auto) 2.0 Urine Mucus Few 07/03/19 07/04/19 07/04/19 17:00 07:22 07:22 WBC 13.5 H RBC 4.23 Hgb 12.6 Hct 38.4 D MCV 91 MCH 30 MCHC 33 RDW 16.7 H Plt Count 399 Sodium 141 Potassium 5.0 D Chloride 102.1 Carbon Dioxide 24 Anion Gap 20 BUN 10 Creatinine 0.8 Estimated GFR > 60 BUN/Creatinine Ratio 13 Glucose 114 H Calcium 9.5 Urine Color Straw Urine Turbidity Clear Urine pH 7.0 Ur Specific [place] 1.008 Urine Protein <15 mg/dl Urine Glucose (UA) Neg Urine Ketones Neg Urine Blood Neg Urine Nitrite Neg Urine Bilirubin Neg Urine Urobilinogen < 2.0 Ur Leukocyte Esterase Tr Urine WBC (Auto) 9.0 H Urine RBC (Auto) < 1.0 U Epithel Cells (Auto) < 1.0 Urine Mucus Assessment and Plan Intracranial hemorrhage status post craniotomy: Fall precautions, helmet on when out of bed, bed alarm. We'll continue to assess patient as she is a high risk for future falls. Monitor scalp for any signs of changes or infection, healing well. [place] removed Hypertension: Continue medication adjustments as needed for normotension Hyperlipidemia: continue statin GERD: Continue Protonix, monitor Constipation: continue bowel meds and monitor for normal bowel regimen Seizure: Continue seizure precaution, monitor frequently for changes in neuro status, continue Keppra Z73.6 ADL dysfunction: OT will work on improving ability to perform ADLs (including assistive devices) to increase independence and decrease caregiver burden and improve functional transfers and mobility training. R26.2 Difficulty walking: PT will work on gait training and proper use of assistive devices and advance as appropriate to use of stairs and outside ambulation on uneven surfaces. R26.81 Unsteadiness on feet: PT will work on improving static and dynamic sitting and standing balance as well as proper use of assistive devices to decrease risk of falls. R26.89 Abnormality of gait: PT will work to improve safety and efficiency of gait through neuromotor training and gait training along with instruction on proper use of assistive devices. M62.81 Muscle weakness: PT & OT will work on strengthening exercises to improve functional strength including mixture of closed and open kinetic chain exercises. R53.81 Debility: PT & OT will work on improving overall functional status to improve participation with ADLs, mobility and social involvement. R53.83 Fatigue: PT & OT will work on improving endurance through aerobic exercises and therapeutic activity while monitoring patients tolerance for activity and vital signs as needed. Hypokalemia and hypomagnesemia: replaced DVT ppx: lovenox Pain: Continue physical modalities in therapy and pain medications as needed to achieve functional pain control. Sleep: Monitor and address as needed. Bowel: Monitor and address as needed. Appetite: Monitor and address as needed. Discharge planning: Pending therapy progress and care plan meeting. Will continue discussion with therapy team, SW, patient and family. Will likely need 10-14 days total to ensure safe discharge home with intermittent family supervision. Incontinent bladder: redraw UA, levaquin started Restrictions/ Precautions: Falls, cranial flap replaced (helmet on when out of bed), seizure WB status: FWB Functional Hx: ADLs: Independent Cognition: Independent Mobility: No AD Barriers to Discharge: Decreased mobility and ability to perform self care, balance deficits, weakness, and impulsivity, decreased awareness of safety Estimated Length of Stay: 10-14 days Discharge Destination: Home with family and intermittent supervision
[2019-07-04] MEDS: PRAVACHOL PO SCH (21:41)
[2019-07-04] MEDS: LOVENOX SUB-Q SCH (21:42)
[2019-07-05] MEDS: KEPPRA PO SCH ×2 (08:53→21:45)
[2019-07-05] MEDS: PROTONIX PO SCH (08:53)
[2019-07-05] MEDS: LOPRESSOR PO SCH ×2 (08:54→21:18)
[2019-07-05] MEDS: LEVAQUIN PO SCH (09:00)
--- NOTE | 2019-07-05 12:58 | Progress Note ---
Subjective Date of service: 07/05/19 Principal diagnosis: ICH Interval history: 73 yo female who underwent excision of meningioma and was discharged home in good condition with the later evolution of weakness and decline. She was evaluated and found to have an ICH and taken for emergent craniotomy. Flap was out when she was last here, helmet should be on when OOB. During her last stay with us she was returned to the outside hospital for a CSF leak from the right nostril. She also had an elevated white count along with a fever. Once returned to the outside hospital she underwent antibiotic treatment as well as surgical repair of the cranial defect which is now bandaged. She underwent therapy at OSH and still needs further therapy in order to return to prior level of functioning as well as to be able to return home safely. Once she was medically stable she was transferred for further rehab. Have placed a bed alarm on. Have discussed with nursing that she needs to be monitored closely. I have also discussed with the patient that she needs to avoid getting out of the bed without assistance. Patient is participating in therapy and making reasonable progress. Taking rest breaks as needed. Denies dysuria. Repeat UA obtained, Cx NEG. Levaquin completed. BP stable. +BM. Denies MURRY, nasal drainage, pain, palpitations, dyspnea, cough, N/V or joint pain. Discussed discharge and all precautions with patient an daughter. Follow up NSURG after discharge 07/08 at 11:30 in [place]. All records, vitals, labs and medications were reviewed. No other issues per patient, nursing or therapy. Objective - Exam Narrative Exam: MUSCULOSKELETAL SPECIALTY EXAM CONSTITUTIONAL: Well developed, well nourished, appropriately groomed HEENT: Right frontal crani flap replaced, suture line healing well without drainage or signs of infection. No signs of CSF leak. EOMI. Hearing intact to soft voice RESPIRATORY: Clear to auscultation bilaterally, no increased work of breathing CARDIOVASCULAR: Regular Rate/ Rhythm, no swelling, edema or tenderness in BUE or BLE. All extremities warm. GI: + bowel sounds, soft, NTTP, nondistended. INTEGUMENTARY: Except for scalp as noted above, Normal, no lesion, rash, masses or bruising noted in extremities. MUSCULOSKELETAL: BUE and BLE normal without defect, crepitus, subluxation, effusion, arthritic changes or TTP. BUE 5/5, good ROM, with normal tone. BLE 4+/5 good ROM, with normal tone NEURO: CN 2-12 grossly intact. Sensation intact in all extremities. No tremor noted in 4 extremities. POSTURE and GAIT: Sitting posture good. Balance appears reasonable with LOB when challenged, only slight when not challenged. Observed with therapy, gait is slowed. PSYCH: Alert, orientated x3, affect appears normal. Insight appears improved. Interm ittent confusion but not seeing much impulsiveness. Difficulty with sequencing. - Constitutional Vitals: Vital Signs - 12hr 07/05/19 07/05/19 07/05/19 01:00 05:35 07:45 Temperature 36.4 C 36.4 C 37.1 C Pulse Rate 68 68 70 Respiratory 18 18 18 Rate Blood Pressure 108/69 Blood Pressure 117/62 117/62 [Right] O2 Sat by Pulse 97 98 97 Oximetry 07/05/19 07/05/19 08:54 09:00 Temperature Pulse Rate 74 Respiratory Rate Blood Pressure 123/72 Blood Pressure [Right] O2 Sat by Pulse 96 Oximetry - Allied health notes Allied health notes reviewed: nursing, PT, OT FIMS assessment as documented by PT/OT/ST: Grooming Patient cleans teeth/dentures: Yes Patient cl[place]/brushes hair: Yes Patient washes, rinses and Yes dries face: Patient washes, rinses and Yes dries hands: Patient applies make-up: No Patient performs (no make-up/ 4/4 (100%) shaving): Grooming FIM Score 6. Modified [place] (Needs equipment/device . Extra time.) Toileting Toileting Device Grab Bar Patient able to: Adjust clothes before,Clean self,Adjust clothes after Patient able to perform: 3/3 (100%) Toileting FIM Score 6. Modified [place] (Needs equip. or prosth ./orth.) Social interaction/Memory/Problem solving Social Interaction FIM Score 7. Complete [place] (Interacts appropriately. Controls temper.) Memory FIM Score 6. Modified [place](Mild difficulty remembering people/routines.) Problem Solving FIM Score 6. Mod. [place] (Mild difficulty or needs more time w/ complex.) Transfers Mode of Locomotion: Wheelchair Bed/Chair/Wheelchair Transfers 5. Supervision (Needs supv. or set-up for FIM Score sliding board, foot rests.) Toilet Transfers FIM Score 5. Supervision (Needs supervision or cueing.) Patient transferred to: Shower Shower Transfers FIM Score 4. Minimal Assistance (Patient = 75% or more. Needs touching.) Locomotion- Stairs Device used on Stairs Handrail/s Number of Stairs Ascended/ 16 Descended Patient used handrail/support: Yes Stairs FIM Score 5. Supervision (12-14 stairs w/ supv. 4-6 stairs independently.) Locomotion- walk/wheelchair Most Frequent Mode of Walking Locomotion: Ambulation Distance 340 Walking FIM Score 5. Supervision (Minimum 150 ft. supv./cues or 50 ft. independently.) Wheelchair Propulsion Distance 200 Wheelchair FIM Score 5. Supervision (Minimum 150 ft. supv./cues or 50 ft. independently.) Eating Eating FIM Score 7. Complete [place] (Cuts meat, opens containers, regular diet.) Dressing-Upper body Patient retrieves clothing No items: Patient applies/removes UE n/a prosthesis or orthosis: Upper Body Dressing FIM Score 5. Supv./Set-Up ([place] sets out clothes or applies pros./orth.) Dressing-lower body Lower Body Dressing Device [place] Patient retrieves clothing No items: Patient applies/removes LE n/a prosthesis or orthosis: Lower Body Dressing FIM Score 5. Supv./Set-Up ([place] sets out clothes or applies pros./orth.) - Labs CBC & Chem 7: 07/06/19 07:55 07/06/19 05:54 Labs: Laboratory Results - last 72 hr 07/03/19 07/04/19 07/04/19 17:00 07:22 07:22 WBC 13.5 H RBC 4.23 Hgb 12.6 Hct 38.4 D MCV 91 MCH 30 MCHC 33 RDW 16.7 H Plt Count 399 Sodium 141 Potassium 5.0 D Chloride 102.1 Carbon Dioxide 24 Anion Gap 20 BUN 10 Creatinine 0.8 Estimated GFR > 60 BUN/Creatinine Ratio 13 Glucose 114 H Calcium 9.5 Urine Color Straw Urine Turbidity Clear Urine pH 7.0 Ur Specific [place] 1.008 Urine Protein <15 mg/dl Urine Glucose (UA) Neg Urine Ketones Neg Urine Blood Neg Urine Nitrite Neg Urine Bilirubin Neg Urine Urobilinogen < 2.0 Ur Leukocyte Esterase Tr Urine WBC (Auto) 9.0 H Urine RBC (Auto) < 1.0 U Epithel Cells (Auto) < 1.0 Assessment and Plan Intracranial hemorrhage status post craniotomy: Fall precautions, helmet on when out of bed, bed alarm. We'll continue to assess patient as she is a high risk for future falls. Monitor scalp for any signs of changes or infection, healing well. [place] removed FOLLOW UP 07/08 11:[address] RUVALCABA Hypertension: Continue medication adjustments as needed for normotension Hyperlipidemia: continue statin GERD: Continue Protonix, monitor Constipation: continue bowel meds and monitor for normal bowel regimen Seizure: Continue seizure precaution, monitor frequently for changes in neuro status, continue Keppra Z73.6 ADL dysfunction: OT will work on improving ability to perform ADLs (including assistive devices) to increase independence and decrease caregiver burden and improve functional transfers and mobility training. R26.2 Difficulty walking: PT will work on gait training and proper use of assistive devices and advance as appropriate to use of stairs and outside ambulation on uneven surfaces. R26.81 Unsteadiness on feet: PT will work on improving static and dynamic sitting and standing balance as well as proper use of assistive devices to decrease risk of falls. R26.89 Abnormality of gait: PT will work to improve safety and efficiency of gait through neuromotor training and gait training along with instruction on proper use of assistive devices. M62.81 Muscle weakness: PT & OT will work on strengthening exercises to improve functional strength including mixture of closed and open kinetic chain exercises. R53.81 Debility: PT & OT will work on improving overall functional status to improve participation with ADLs, mobility and social involvement. R53.83 Fatigue: PT & OT will work on improving endurance through aerobic exercises and therapeutic activity while monitoring patients tolerance for activity and vital signs as needed. Hypokalemia and hypomagnesemia: replaced DVT ppx: lovenox Pain: Continue physical modalities in therapy and pain medications as needed to achieve functional pain control. Sleep: Monitor and address as needed. Bowel: Monitor and address as needed. Appetite: Monitor and address as needed. Discharge planning: Pending therapy progress and care plan meeting. Will continue discussion with therapy team, SW, patient and family. Will likely need 10-14 days total to ensure safe discharge home with intermittent family supervision. Incontinent bladder: levaquin short course. 2nd cx was NEG Restrictions/ Precautions: Falls, cranial flap replaced (helmet on when out of bed), seizure WB status: FWB Functional Hx: ADLs: Independent Cognition: Independent Mobility: No AD Barriers to Discharge: Decreased mobility and ability to perform self care, balance deficits, weakness, and impulsivity, decreased awareness of safety, will need 24 hr supervision until improved Estimated Length of Stay: 10-14 days Discharge Destination: Home with family and supervision
[2019-07-05] MEDS: PRAVACHOL PO SCH (21:17)
[2019-07-05] MEDS: LOVENOX SUB-Q SCH (21:18)
[2019-07-06 06:38] LABS: Hematocrit 50.3 % (30.3-42.9); Mean Corpuscular HGB Conc 32 % (30-34); Mean Corpuscular Volume 93 fl (79-97); Red Blood Count 5.43 M/mm3 (3.65-5.03); Red Cell Distribution Width 16.9 % (13.2-15.2)
[2019-07-06 06:43] LABS: BUN/Creatinine Ratio 12; Blood Urea Nitrogen 11 mg/dL (7-17); Calcium 8.8 mg/dL (8.4-10.2); Hemolysis Index 23
[2019-07-06 06:49] LABS: Platelet Count 97 K/mm3 (140-440)
[2019-07-06 08:06] VITALS: BP 110/60
[2019-07-06 08:14] LABS: Mean Corpuscular HGB Conc 34 % (30-34); Mean Corpuscular Volume 90 fl (79-97); Red Blood Count 3.55 M/mm3 (3.65-5.03); Red Cell Distribution Width 16.5 % (13.2-15.2)
[2019-07-06] MEDS: PROTONIX PO SCH (08:17)
[2019-07-06] MEDS: KEPPRA PO SCH (08:17)
[2019-07-06] MEDS: LOPRESSOR PO SCH (08:18)
[2019-07-06 08:43] LABS: Hematocrit 32.1 % (30.3-42.9); Platelet Count 292 K/mm3 (140-440)
--- NOTE | 2019-07-06 09:30 | Discharge Summary ---
Providers - Providers Date of Admission: 06/22/19 18:30 Date of discharge: 07/06/19 Attending physician: BETY RODRIGUEZ III, MD 06/22/19 19:16 Occupational Therapy Evaluate and Treat [CONS] Routine Comment: Reason For Exam: ADL dysfunction Physical Therapy Evaluation and Treat [CONS] Routine Comment: Reason For Exam: Mobility Dysfunction Speech Therapy Evaluation and Treat [CONS] Routine Reason For Exam: Cognitive 06/22/19 19:21 Consult to Case Management [CONS] Routine Services Needed at Discharge: Home Health Services Notified:: SURVEY TECHNICIANrn homecare physician: ISMA BALLESTEROS Hospitalization Reason for admission: ICH Condition: Good Hospital course: 73 yo female who underwent excision of meningioma and was discharged home in good condition with the later evolution of weakness and decline. She was evaluated and found to have an ICH and taken for emergent craniotomy. Flap was out when she was last here, helmet should be on when OOB. During her last stay with us she was returned to the outside hospital for a CSF leak from the right nostril. She also had an elevated white count along with a fever. Once returned to the outside hospital she underwent antibiotic treatment as well as surgical repair of the cranial defect which is now bandaged. She underwent therapy at OSH and still needs further therapy in order to return to prior level of functioning as well as to be able to return home safely. Once she was medically stable she was transferred for further rehab. Have placed a bed alarm on. Have discussed with nursing that she needs to be monitored closely. I have also discussed with the patient that she needs to avoid getting out of the bed without assistance. Patient progressed well with therapy. She is still having some issues with loss of balance as well as decreased awareness of deficits and cognitive deficits. However overall she has improved greatly. She will will need 24-hour supervision at home for brief period until she has regained her full safety awareness. Did have the opportunity to speak with both the patient and the daughter yesterday concerning discharge concerns and/or recommendations for safe discharge. We will have her continue therapy with home health in order to avail her to home health aide as well as nursing follow-up and therapies. She has a follow-up with Dr. Flanagan on 07/08 at 11:30 AM in [place]. Blood pressure was well controlled while she was on the rehabilitation unit. We did not note any seizure activity. She has not become agitated. Would recommend continuing Seroquel at its current low dose for short period and then start to wean and monitor for any changes. She will need to continue wearing her helmet when out of bed until cleared by Dr. Flanagan. Disposition: [id number] HOME UNDER HOME [facility] Time spent for discharge: >30mins Core Measure Documentation - Palliative Care Palliative Care/ Comfort Measures: Not Applicable - Core Measures Any of the following diagnoses?: none Exam - Physical Exam Narrative exam: MUSCULOSKELETAL SPECIALTY EXAM CONSTITUTIONAL: Well developed, well nourished, appropriately groomed HEENT: Right frontal crani flap replaced, suture line healing well without drainage or signs of infection. No signs of CSF leak. EOMI. Hearing intact to soft voice RESPIRATORY: Clear to auscultation bilaterally, no increased work of breathing CARDIOVASCULAR: Regular Rate/ Rhythm, no swelling, edema or tenderness in BUE or BLE. All extremities warm. GI: + bowel sounds, soft, NTTP, nondistended. INTEGUMENTARY: Except for scalp as noted above, Normal, no lesion, rash, masses or bruising noted in extremities. MUSCULOSKELETAL: BUE and BLE normal without defect, crepitus, subluxation, effusion, arthritic changes or TTP. BUE 5/5, good ROM, with normal tone. BLE 4+/5 good ROM, with normal tone NEURO: CN 2-12 grossly intact. Sensation intact in all extremities. No tremor noted in 4 extremities. POSTURE and GAIT: Sitting posture good. Balance appears reasonable with LOB when challenged, only slight when not challenged. Observed with therapy, gait is slowed. PSYCH: Alert, orientated x3, affect appears normal. Insight appears improved. Intermittent confusion but not seeing much impulsiveness. Difficulty with seque ncing. - Constitutional Vitals: Temp Pulse Resp BP Pulse Ox 36.6 C 93 H 16 110/60 96 07/06/19 08:00 07/06/19 08:18 07/06/19 08:00 07/06/19 08:00 07/06/19 08:00 Plan Activity: advance as tolerated, no driving until cleared by PCP, fall precautions, other (Helmet on when out of bed) Weight Bearing Status: Full Weight Bearing Diet: low fat, low cholesterol Wound: open to air Special Instructions: physical therapy, occupational therapy, home health RN Durable Medical Equipment Needed Upon Discharge: Walker-Rolling, Bedside Commode Follow up with: ISMA BALLESTEROS MD [Primary Care Provider] - 7 Days Prescriptions: Pravastatin [Pravachol] 40 mg PO QHS #30 tablet QUEtiapine [SEROquel] 12.5 mg PO QHS #30 tablet Dexlansoprazole [Dexilant] 30 mg PO QDAY #30 trever. levETIRAcetam [Keppra TAB] 1,000 mg PO BID #120 tablet Metoprolol [Lopressor TAB] 12.5 mg PO BID #30 tablet
[2019-07-06] MEDS: LEVAQUIN PO SCH (09:45)
== END 2019-07-06 12:50 | disposition home health service (06) | DRG 66 ==
LOC: 3A 13:48 → UNDOADMIN 13:48 → 3B 18:30
PROVIDERS: ADMIT Physical Medicine & Rehabilitation; ATTEND Physical Medicine & Rehabilitation
DX: I62.9 Nontraumatic intracranial hemorrhage, unspecified (principal); K21.9 Gastro-esophageal reflux disease without esophagitis; E78.5 Hyperlipidemia, unspecified; K59.00 Constipation, unspecified; R56.9 Unspecified convulsions; E87.6 Hypokalemia; R53.81 Other malaise; I12.9 Hypertensive chronic kidney disease with stage 1 through stage 4 chronic kidney disease, or unspecified chronic kidney disease; N18.9 Chronic kidney disease, unspecified; E83.42 Hypomagnesemia; R26.89 Other abnormalities of gait and mobility; Z98.891 History of uterine scar from previous surgery; Z90.49 Acquired absence of other specified parts of digestive tract; Z82.49 Family history of ischemic heart disease and other diseases of the circulatory system; Z83.3 Family history of diabetes mellitus; Z91.048 Other nonmedicinal substance allergy status; Z79.899 Other long term (current) drug therapy
CPT/HCPCS: 36415; 80048; 80053; 81001; 82962; 83735; 85007; 85025; 85027; 87086; G0378; A9270-GY; G0515-GN; J1644; J1650; J3475; J3480; J7040